=== PATIENT | male | born 1950 | race Caucasian/White ===

== ENCOUNTER → 2023-08-17 09:09 | Outpatient (REF) | payer OTHER, SELFPAY | LOC: PET 09:09 | PROVIDERS: ATTENDING PHYSICIAN Internal Medicine Hematology & Oncology | DX: C61 Malignant neoplasm of prostate (principal) | CPT/HCPCS: 78815 ==

== ENCOUNTER 2023-10-11 17:12 | Emergency (ER) | payer OTHER, SELFPAY ==
[2023-10-11 17:15] VITALS: BP 106/64
[2023-10-11] MEDS: AUGMENTIN 875 MG/125 MG 1 TABLET PO (19:13)
--- NOTE | 2023-10-11 19:34 | ED.SKININJ ---
HPI-Injury
General
Chief Complaint: Bite
Source: patient and spouse
Exam Limitations: none
Time Seen by Provider: 10/11/23 17:50
Nursing documentation reviewed up to this point in time: agreed with
Travel History
Have you had any contact with someone who has COVID-19?: No
Do you have any symptoms of coronavirus? Fever > 100 degrees, chills, cough, shortness of breath, sore throat, loss of taste or smell, muscle aches, or headache?: No
History of Present Illness-Injury
Is this injury a work related problem?: No
Is pt an associate of [facility]?: No
Initial Injury comments:
73-year-old male presenting to the emergency department today with concerns of multiple dog bites to his mainly his left arm and one bite to the right after breaking up a fight with his dog who are up-to-date with vaccinations but otherwise has been
acting normally very low risk for rabies. Does not take blood thinners has some mild pain to the wrist. He is unsure when his last tetanus shot was.
Past History
Past History
ED Past Medical History: Cancer (Prostate CA), COPD, Hypercholesterolemia, [place] and Other (Cardiac arrest, Bladder stent)
ED Past Surgical History: Cardiac (Stents) and Other (Hernia repair)
Social History
Tobacco: Former smoker
Alcohol: None
Drug: None
Personal:
Living: with family
Employment: Not employed
Family History
Family History: Other (Noncontributory)
Review of Systems
Review of Systems
Allergies reviewed?: Yes
All Other Systems: ROS reviewed and negative except as documented in HPI and ROS
Phy Exam
Physical Exam
Physical Exam:
GENERAL: Alert , in no apparent distress
EYE: pupils equal and reactive
NECK: Supple, no significant adenopathy.
ENT: o/p clr, mmm.
CARDIAC: Regular rate and rhythm .
LUNGS: Clear breath sounds bilaterally, no acute respiratory distress, no wheezes/rales/rhonchi
ABDOMEN: Soft, without focal tenderness, no r/g, no cvat
NEUROLOGICAL: Alert and oriented, no focal neuro deficits
SKIN: Warm and dry, skin intact.
MUSCULOSKELETAL: Swelling to the left-sided distal forearm tenderness palpation good range of motion and strength of the elbow and wrist. No edema, well perfused.
PSYCH: Normal and appropriate interaction.
Scattered skin tear and puncture wounds throughout the left upper extremity with no active bleeding small mount of swelling to the distal forearm.
Course
Orders/Labs/Results
Orders:
Orders
10/11/23 18:07
Wrist, Left 3 Views CR [CR Wrist - Left Min 3 Views] Urgent
Comment:
Reason For Exam: dog bite/ swelling
10/11/23 18:47
Amoxicillin 875 mg/Clav 125 mg [Augmentin 875 mg/125 mg] 1 tablet PO NOW STA
10/11/23 19:15
Acetaminophen [Tylenol] 650 mg PO NOW STA
Vital Signs
Initial and Last Documented VS:
Initial Vital Signs
Temp Pulse Resp BP Pulse Ox
98.3 F 81 20 106/64 99
10/11/23 17:15 10/11/23 17:15 10/11/23 17:15 10/11/23 17:15 10/11/23 17:15
Last Documented Vital Signs
Temp Pulse Resp BP Pulse Ox
98.3 F 81 20 106/64 99
10/11/23 17:15 10/11/23 17:15 10/11/23 17:15 10/11/23 17:15 10/11/23 17:15
MDM/Problems Addressed
MDM/Problems Addressed:
73-year-old male presenting to the emergency department today with concerns of bite to the left forearm and skin tear to left forearm occurring just prior to arrival from his dogs after breaking up a fight to his. Does have some pain to the wrist.
X-ray performed that did not show signs of fracture or foreign body. Patient not on thinners. Patient was started on Augmentin. He was advised to get a tetanus shot but refused this. He understands the risk. Otherwise area was cleaned
thoroughly and bandaged but otherwise not closed due to infection risk recommended for close outpatient follow-up return precautions given.
*Critical Care Note
Total Time (30-74mins, 75-104mins- exclusive of procedures): Not Applicable
ED Attending Note
-
Portions of this chart may have been created with voice recognition software.� Occasional wrong word or��sound alike� substitutions may have occurred due to the inherent limitations of voice recognition software.
Discharge Plan
Departure
Patient Disposition: Home (Routine Discharge)
Date of Disposition: 10/11/23
Time of Disposition: 19:35
Patient with high blood pressure during this ER visit?: No
Condition: Good
Covid-19: Not Applicable
Discharge Problem:
Dog bite of arm
Instructions: Animal Bites (DC), Wound Care (DC)
Prescriptions:
New
amoxicillin-pot clavulanate 875-125 mg tablet
1 tab PO BID 5 Days Qty: 10 0RF
No Action
Trelstar 22.5 MG suspension for reconstitution
22.5 mg IM [id number]
Patient Comments:
05/16/2023, patient states that their next dose is on 05/24/2023.
vitamin B complex Tablet
1 tab PO DAILY
Patient Comments:
05/16/2023, patient is unsure whether this is a morning or evening vitamin.
Xtandi 80 mg Tablet
80 mg PO BID
Patient Comments:
05/16/2023, patient is unsure if they are still taking this medication or not. This medication is on [facility] from 03/30/2023.
pantoprazole 40 mg tablet,delayed release (DR/EC)
40 mg PO DAILY Qty: 90 10RF
nitroglycerin 0.4 mg tablet, sublingual
0.4 mg sublingual [id number] PRN (Reason: chest pain) Qty: 25 5RF
mirtazapine 15 mg Tablet
15 mg PO DAILY
Patient Comments:
05/16/2023, patient is unsure whether this is a morning or evening medication.
prednisone 5 mg Tablet
5 mg PO BID
Patient Comments:
05/16/2023, patient is unsure if they are still taking this medication or not. 30-day supply filled on 05/06/2023 according to Pharmacy records.
Xgeva 120 mg/1.7 mL (70 mg/mL) Solution
120 mg SC QMONTH
Calcium 600 + D(3)
1 tab PO BID
atorvastatin 80 mg tablet
80 mg PO DAILY@1900
aspirin [Children's Aspirin] 81 mg Tablet,Chewable
81 mg PO DAILY Qty: 30 0RF
nicotine 14 mg/24 hr Patch 24 Hour
14 mg transdermal DAILY Qty: 28 0RF
Brilinta 90 mg Tablet
90 mg PO BID Qty: 60 0RF
Referrals:
Olivia Zambrano CRNP [Family Provider] -
Activity Restrictions/Additional Instructions:
You can to the emergency department today with concerns of multiple dog bites to your arms. Please keep the area clean covered and take Augmentin twice daily for the next 5 days. Return to the emergency department for any worsening, new or
concerning symptoms.
Interventions
Interventions:
*Risk Screen - Suicide Last Done: 10/11/23 17:15
*General Assessment Last Done: 10/11/23 17:15
*Neglect/Abuse Screening Last Done: 10/11/23 17:15
ED-Skin Assessment Last Done: 10/11/23 18:12
Discharge Date and Time
Print Language: PASHTO
[2023-10-11 19:48] VITALS: BP 98/61
== END 2023-10-11 19:49 | disposition home or self-care (01) ==
LOC: EMR 17:12
PROVIDERS: EMERGENCY PHYSICIAN Emergency Medicine; FAMILY PHYSICIAN Nurse Practitioner Primary Care
DX: S41.132A Puncture wound without foreign body of left upper arm, initial encounter (principal); W54.0XXA Bitten by dog, initial encounter; E78.00 Pure hypercholesterolemia, unspecified; J44.9 Chronic obstructive pulmonary disease, unspecified; Z85.46 Personal history of malignant neoplasm of prostate; Z86.74 Personal history of sudden cardiac arrest; Z87.891 Personal history of nicotine dependence; Z95.5 Presence of coronary angioplasty implant and graft
CPT/HCPCS: 99283; 73110

== ENCOUNTER → 2024-02-07 06:45 | Outpatient (REF) | payer OTHER, SELFPAY | LOC: PAVMRI 06:45 | PROVIDERS: ATTENDING PHYSICIAN Nurse Practitioner Primary Care | DX: F17.209 Nicotine dependence, unspecified, with unspecified nicotine-induced disorders (principal); C61 Malignant neoplasm of prostate; R41.3 Other amnesia | CPT/HCPCS: 70551 ==

== ENCOUNTER → 2024-02-20 11:46 | Outpatient (REF) | payer OTHER, SELFPAY | LOC: PET 11:46 | PROVIDERS: ATTENDING PHYSICIAN Internal Medicine Hematology & Oncology | DX: C61 Malignant neoplasm of prostate (principal) | CPT/HCPCS: 78815 ==

== ENCOUNTER → 2024-05-24 09:51 | Outpatient (REF) | payer OTHER, SELFPAY | LOC: PET 09:51 | PROVIDERS: ATTENDING PHYSICIAN Nurse Practitioner Adult Health | DX: C61 Malignant neoplasm of prostate (principal) | CPT/HCPCS: 78815 ==

== ENCOUNTER → 2024-06-04 11:51 | Outpatient (REF) | payer OTHER, SELFPAY ==
[2024-06-04 11:56] LABS: % Basophils 0.4 % (0-2); % Eosinophils 0.6 % (0-6); % Immature Granulocytes 0.2 % (0-0.5); % Lymphocytes 6.5 % (20.5-51.1); % Neutrophils 83.3 % (42.2-75.2); Absolute Eosinophils 0.1 10^3/uL (0-0.7); Absolute Lymphocytes 0.5 10^3/uL (1.2-3.4); Absolute Monocytes 0.7 10^3/uL (0.1-0.6); Absolute Neutrophils 6.8 10^3/uL (1.4-6.5); Hematocrit 32.7 % (39.0-52.0); Hemoglobin 10.8 g/dL (13.0-18.0); Mean Corpuscular Hgb 36.6 pg (27.0-31.0); Mean Corpuscular Volume 110.8 fL (80.0-94.0); Mean Platelet Volume 9.6 fL (7.4-10.4); Platelet Count 284 10^3/uL (130-400); Red Blood Cell Count 2.95 10^6/uL (4.70-6.10); Red Cell Dist. Width 15.6 % (11.5-14.5); White Blood Cell Count 8.2 10^3/uL (4.8-10.8)
[2024-06-04 12:39] LABS: ALT (SGPT) < 10 U/L (0-50); AST (SGOT) 17 U/L (17-59); Albumin 3.4 g/dl (3.5-5.0); Alkaline Phosphatase 89 U/L (38-126); Blood Urea Nitrogen 25 mg/dl (9-20); Calcium 8.6 mg/dl (8.4-10.2); Carbon Dioxide 25 mmol/L (22-30); Chloride 106 mmol/L (98-107); Glucose 89 mg/dl (70-99); Potassium 5.8 mmol/L (3.5-5.1); Sodium 136 mmol/L (135-145); Total Bilirubin 0.3 mg/dl (0.2-1.3); Total Protein 5.9 g/dl (6.3-8.2); eGFR > 60.00
== END ==
LOC: OIDL 11:51
PROVIDERS: ATTENDING PHYSICIAN Internal Medicine Hematology & Oncology
DX: C77.5 Secondary and unspecified malignant neoplasm of intrapelvic lymph nodes (principal)
CPT/HCPCS: 80053; 85025

== ENCOUNTER → 2024-07-17 16:00 | Outpatient (REF) | payer OTHER, SELFPAY ==
[2024-07-17 14:52] LABS: Blood Urea Nitrogen 18 mg/dl (9-20); Calcium 7.9 mg/dl (8.4-10.2); Carbon Dioxide 22 mmol/L (22-30); Chloride 104 mmol/L (98-107); Glucose 121 mg/dl (70-99); Potassium 4.7 mmol/L (3.5-5.1); Sodium 133 mmol/L (135-145); eGFR > 60.00
== END ==
LOC: OIDL 16:00
PROVIDERS: ATTENDING PHYSICIAN Nurse Practitioner Adult Health
DX: C77.5 Secondary and unspecified malignant neoplasm of intrapelvic lymph nodes (principal)
CPT/HCPCS: 80048

== ENCOUNTER → 2024-07-23 12:08 | Outpatient (REF) | payer OTHER, SELFPAY | LOC: HWRAD 12:08 | PROVIDERS: ATTENDING PHYSICIAN Nurse Practitioner Adult Health; FAMILY PHYSICIAN Internal Medicine Geriatric Medicine | DX: C61 Malignant neoplasm of prostate (principal); C75.5 Malignant neoplasm of aortic body and other paraganglia | CPT/HCPCS: 76770 ==

== ENCOUNTER → 2024-08-20 11:36 | Outpatient (REF) | payer OTHER, SELFPAY | LOC: PET 11:36 | PROVIDERS: ATTENDING PHYSICIAN Nurse Practitioner Adult Health | DX: C61 Malignant neoplasm of prostate (principal) | CPT/HCPCS: 78815 ==

== ENCOUNTER 2024-09-01 14:17 | Inpatient (IN) | payer OTHER, SELFPAY ==
[2024-09-01] VITALS (27 sets, daily range): BP systolic 66–105; BP diastolic 46–78; BMI 20.2; BMI 19.4
[2024-09-01] MEDS: NSS 1000 IV ×3 (09:30→18:49)
[2024-09-01 10:58] LABS: Hematocrit 31.1 % (39.0-52.0); Hemoglobin 10.9 g/dL (13.0-18.0); Mean Corpuscular Hgb 36.6 pg (27.0-31.0); Mean Corpuscular Volume 104.4 fL (80.0-94.0); Mean Platelet Volume 11.1 fL (7.4-10.4); Platelet Count 168 10^3/uL (130-400); Red Blood Cell Count 2.98 10^6/uL (4.70-6.10); Red Cell Dist. Width 15.9 % (11.5-14.5); White Blood Cell Count 21.9 10^3/uL (4.8-10.8)
[2024-09-01 11:01] LABS: ALT (SGPT) 32 U/L (0-50); AST (SGOT) 63 U/L (17-59); Albumin 2.6 g/dl (3.5-5.0); Alkaline Phosphatase 209 U/L (38-126); Blood Urea Nitrogen 61 mg/dl (9-20); Calcium 8.1 mg/dl (8.4-10.2); Carbon Dioxide 22 mmol/L (22-30); Chloride 105 mmol/L (98-107); Estimated Creatinine Clearance 15 ml/min; Glucose 92 mg/dl (70-99); Magnesium 2.2 mg/dl (1.6-2.3); Phosphorus 3.6 mg/dl (2.5-4.5); Sodium 134 mmol/L (135-145); Total Bilirubin 1.1 mg/dl (0.2-1.3); Total Protein 4.7 g/dl (6.3-8.2); eGFR 15.52
[2024-09-01 11:30] LABS: TSH Reflex To Free T4 0.98 uIU/ml (0.47-4.68)
--- NOTE | 2024-09-01 11:46 | ED.GENMED ---
History of Present Illness
General
Chief Complaint: Failure to Thrive
Source: patient
Time Seen by Provider: 09/01/24 08:34
History of Present Illness
History of Present Illness:
73-year-old male presents to the emergency room for evaluation of profound weakness, poor oral intake and perceived dehydration over the past week. Patient has a history of prostate cancer which is now widely metastatic. He has been through
several rounds of radiation and chemo. He took his last chemo treatment 3 weeks ago. He is being considered for a 'infusion of radiation' at [place]. Patient is optimistic that this treatment will help him and wants to do everything he can take
be well enough to get the treatment. Patient denies any fever. He does have a cough. Cough is been present for couple weeks. He has been some lower chest pain and upper abdominal pain. This discomfort has been present for weeks. He denies
nausea or vomiting but just cannot bring himself to consume anything. He is incontinent of urine but has noted he makes very little urine
Past History
Past History
ED Past Medical History: Cancer (Prostate CA), COPD, Hypercholesterolemia, [place] and Other (Cardiac arrest, Bladder stent)
ED Past Surgical History: Cardiac (Stents) and Other (Hernia repair)
Social History
Tobacco: Former smoker
Alcohol: None
Drug: None
Personal:
Living: with family
Employment: Not employed
Family History
Family History: Other (Noncontributory)
Phy Exam
Physical Exam
Physical Exam:
General: Awake, Alert, Oriented X3. Patient appears chronically ill, cachectic, dehydrated
Vitals: Hypotensive
Head: Atraumatic
Eyes: Pupils equal, EOMI
Throat: Airway intact, no exudates, dry mucosa
Neck: Trachea midline
Lungs: Clear and equal b/l
Heart: Regular rate, 3/6 systolic murmurs
Abd: Soft, upper abdominal pain to palpation, No pulsatile mass
Back: No CVA tenderness to percussion
Neuro: Cranial nerves intact, muscle strength equal bilaterally, cerebellar exam normal
Skin: Warm, dry, no rash
Extremities: pulses equal b/l, no edema
Course
Orders/Labs/Results
Orders:
Orders
09/01/24 09:01
0.9% Sodium Chloride 1000 ml [Nss] 1,000 ml IV BOLUS
09/01/24 09:05
Urinalysis Reflex To Culture Urgent
09/01/24 09:23
CR Chest - 2 Views Urgent
Comment:
Reason For Exam: cough
09/01/24 10:33
Complete Blood Count/With Diff Urgent
Comprehensive Metabolic Panel Urgent
Magnesium Urgent
Phos [Phosphorus] Urgent
TSH Reflex To Free T4 Urgent
09/01/24 11:16
Electrocardiogram (*1) Urgent
Reason for Study: QTc Monitoring
CT Abd/pel Without Iv Or Oral Urgent
Comment:
Reason For Exam: acute renal failure
EKG- Treatment ONCE
Calcium Gluconate 1,000 mg IV NOW STA
Dextrose 50%-Water [Dextrose 50% Syringe] 12.5 grams IV [id number] PRN
Dextrose 50%-Water [Dextrose 50% Syringe] 25 grams IV NOW STA
Insulin Human Regular [Novolin R] 10 units IV NOW STA
09/01/24 11:17
Bedside Glucose PRE IV Insulin- HyperK+ NOW
09/01/24 11:47
CefTRIAXone [Rocephin] 1,000 mg IV NOW STA
Doxycycline [Vibramycin] 100 mg PO NOW STA
09/01/24 12:47
Bedside Glucose POST IV Insulin- HyperK+ Q1HX2,Q2HX2
09/01/24 13:22
0.9% Sodium Chloride 1000 ml [Nss] 1,000 ml IV BOLUS
09/01/24 13:32
Blood Culture Routine
DENISE Source: Blood/Venous
Specimen Description:
09/01/24 13:34
Admit/Transfer Patient As Directed
Co-Sign Provider:
Level of Care: Inpatient admission
Assign to:: IMU- Intermediate Care
Physician / Group: Raulito/Hospitalist
Diagnosis: RADHA, kidney stone, metastatic prostate ca, b/l pneumonia
Reason for Hospitalization: 8 mm nonobstructing lower pole left renal calculus.
Expected length of stay greater than two midnights?: Yes
ELOS- Estimated Length of Stay in days: 4
I certify the patient meets the requirements for IP care: Yes
09/01/24 13:35
PRN Pain Medication Management As Directed
May give lesser potent ordered pain med per pt: Yes
preference::
Protocol:: Medication orders for pain may be administered in a
manner that supports deferring to patient preference
when the pt is:
- Requesting an ordered lesser potent pain medication.
Least to most potent pain medications are defined
as: acetaminophen < NSAID < tramadol < opioids
(morphine, oxycodone, hydromorphone).
- Requesting a lesser dose of the same medication IF
ORDERED.
- Requesting a less intrusive route of administration
if both routes are prescribed by the provider (PO <
IV).
09/01/24 13:36
Code Status As Directed
Resuscitation Status: Full Code
09/01/24 13:42
0.9% Sodium Chloride 250 ml [Nss] 250 ml IV BOLUS
09/01/24 13:47
Potassium Urgent
Comment: draw 2 hours after regular insulin IV administration
09/01/24 14:08
Consult Interventional Radiology [IRAD CONSULT] Urgent
Consulting Provider: Marvin Bull
Was physician already notified: Yes
Reason for Consult/Procedure: kidney stones, hydro left, RADHA, met ca prostate
Acknowledgement that appropriate orders are entered: Yes
Abnormal Lab Results
09/01/24
10:33
WBC 21.9 H 10^3/uL
(4.8-10.8)
RBC 2.98 L 10^6/uL
(4.70-6.10)
Hgb 10.9 L g/dL
(13.0-18.0)
Hct 31.1 L %
(39.0-52.0)
MCV 104.4 H fL
(80.0-94.0)
MCH 36.6 H pg
(27.0-31.0)
RDW 15.9 H %
(11.5-14.5)
MPV 11.1 H fL
(7.4-10.4)
Abs Immat Gran (auto) 0.2 H 10^3/uL
(0-0.05)
Absolute Neuts (auto) 20.5 H 10^3/uL
(1.4-6.5)
Absolute Lymphs (auto) 0.5 L 10^3/uL
(1.2-3.4)
Absolute Monos (auto) 0.7 H 10^3/uL
(0.1-0.6)
Immature Gran % 0.7 H %
(0-0.5)
Neutrophils % 93.8 H %
(42.2-75.2)
Lymphocytes % 2.1 L %
(20.5-51.1)
Sodium 134 L mmol/L
(135-145)
Potassium 6.0 H mmol/L
(3.5-5.1)
BUN 61 H mg/dl
(9-20)
Creatinine 3.9 H mg/dL
(0.7-1.3)
Calcium 8.1 L mg/dl
(8.4-10.2)
AST 63 H U/L
(17-59)
Alkaline Phosphatase 209 H U/L
(38-126)
Total Protein 4.7 L g/dl
(6.3-8.2)
Albumin 2.6 L g/dl
(3.5-5.0)
09/01/24 10:33
Vital Signs
Initial and Last Documented VS:
Initial Vital Signs
Temp Pulse Resp BP Pulse Ox
97.5 F 99 18 79/53 100
09/01/24 08:25 09/01/24 08:25 09/01/24 08:25 09/01/24 08:25 09/01/24 08:25
Last Documented Vital Signs
Temp Pulse Resp BP Pulse Ox
97.5 F 75 24 83/50 96
09/01/24 08:25 09/01/24 15:15 09/01/24 15:15 09/01/24 15:00 09/01/24 15:15
MDM/Problems Addressed
Differential Diagnosis Includes:
Dehydration, renal failure, electrolyte abnormality, urinary tract infection
MDM/Problems Addressed:
Patient presents with significant dehydration, weakness. Labs show a white count of 21.9, hemoglobin of 10.9. His BUN and creatinine are markedly elevated at 61 and 3.9. His potassium is significantly elevated at 6.0. EKG does not show any
findings to suggest effect from potassium. However he was treated with calcium gluconate, dextrose and insulin. IV fluids were initiated. Chest x-ray suggestive of pneumonia bilaterally. Given his renal failure a CT was obtained which shows an
atrophic right kidney and hydronephrosis of the left thought to be related to an accumulation of kidney stones at the distal left ureter. Urology consultation was obtained. Dr. Chambers came and saw the patient. He recommends interventional
radiology perform a nephrostomy tube. He did reach out to interventional) allergy. The patient will require hospitalization to a monitored setting.
*Radiology
Radiology exam reviewed: radiology read reviewed
*Pulse Oximetry
Patient hypoxic: no
*EKG
Heart Rate: 73
Rate: normal
Rhythm: sinus
[place]: normal axis
Interval: normal interval
QRS Pattern: low voltage
Ischemia: no ischemia
*Coder Interpretation
Rate: normal
Interpretation: normal
Rhythm: sinus
*Critical Care Note
Total Time (30-74mins, 75-104mins- exclusive of procedures): 33 min
comment:
Critical care statement: A total of 33 minutes of critical care time was provided for this patient. This includes management of unstable vital signs, evaluation of the patient at bedside, reviewing the patient's pertinent medical records, discussion
with consultants, review of old EKGs and review of pertinent medical records. This time with separate from time utilized to perform the aforementioned documented procedures
Patient Management
Social determinants of health affecting care: Strong social support
ED Attending Note
-
Portions of this chart may have been created with voice recognition software.� Occasional wrong word or��sound alike� substitutions may have occurred due to the inherent limitations of voice recognition software.
Discharge Plan
Departure
Patient Disposition: Admit
Date of Disposition: 09/01/24
Time of Disposition: 11:57
Admit to: IMU
Presentation/result/management discussed w/ accepting MD/DO: Hospitalist
Condition: Fair
Discharge Problem:
Acute dehydration, Acute hyperkalemia, Pneumonia
Interventions
Interventions:
*Risk Screen - Suicide Last Done: 09/01/24 08:25
*Neglect/Abuse Screening Last Done: 09/01/24 08:25
[2024-09-01 12:13] LABS: % Basophils 0.2 % (0-2); % Eosinophils 0.1 % (0-6); % Immature Granulocytes 0.7 % (0-0.5); % Lymphocytes 2.1 % (20.5-51.1); % Monocytes 3.1 % (1.7-9.3); % Neutrophils 93.8 % (42.2-75.2); Absolute Basophils 0.1 10^3/uL (0-0.2); Absolute Immature Granulocytes 0.2 10^3/uL (0-0.05); Absolute Lymphocytes 0.5 10^3/uL (1.2-3.4); Absolute Monocytes 0.7 10^3/uL (0.1-0.6); Absolute Neutrophils 20.5 10^3/uL (1.4-6.5); Nucleated Red Blood Cells % 0 % (-)
--- NOTE | 2024-09-01 12:30 | HPS.HSE ---
Addendum entered and electronically signed by Mariaelena Cabezas DO 09/01/24 14:30:
Dr. Chambers from urology came to see the patient.
Due to the extent of the kidney stones and location and also complications of taking him to the OR under sedation based on his comorbidities, interventional radiology was also consulted for possible percutaneous stenting.
Interventional radiology will see the patient in the emergency department with a plan to keep the patient n.p.o., judicious use of IV fluids, and likely intervention today or tomorrow.
In addition to the assessment
# Hyperkalemia, likely due to acute kidney injury.
- He received insulin, calcium gluconate and dextrose in the emergency department.
-EKG is showing no changes at this time.
-Will follow-up with a repeat BMP this evening.
-Monitor on telemetry.
Original Note:
Family Physician
-
Family Physician: Fei Braga
Chief Complaint
-
FTT
History of Present Illness
The patient is a 73-year-old male with past medical history significant for prostate carcinoma status post prostatectomy in March 2019, PSA on 06/21/2024 reportedly 240 ng/mL, PSA on 07/12/2024 reportedly 462 ng/mL, family reported PSA is now over
1000, with disease progression in the bones and liver, COPD, hyperlipidemia, coronary artery disease, OH, cardiac arrest, bladder stent who presented to the emergency department secondary to failure to thrive. He has not been eating or drinking
much, he has been very dehydrated, he has had increased fatigue and weakness. He denies chest pain or shortness of breath but he has been coughing a lot. Cough is nonproductive. He has right upper quadrant abdominal pain. He has had very little
urine output if any. He has been on 4 L of oxygen therapy in the emergency department for comfort. WBC 21.9 hemoglobin 10.9 platelets 168 creatinine 3.9 which is up from a creatinine of 1.2 in July 17 2024. Recent PET scan August 20, 2024
shows progressive disease with uptake in multiple prior existing osseous lesions that has increased and a few new lesions demonstrated with progressive hepatic metastatic disease.
ED treatment
IV fluid bolus, IV calcium gluconate, 10 units insulin, dextrose, IV Rocephin, IV doxycycline
Medical History
Past Medical History
Past Medical History: Reports Other
Additional Past Medical History:
Coronary Artery Disease s/p TANYA (most recent August 2022)
Ischemic Cardiomyopathy
Non-Sustained VT
Essential Hypertension
Hyperlipidemia
CKD Stage 3B
COPD
Interstitial Lung Disease
Metastatic Prostate Cancer s/p Prostatectomy and Radiation
Depression
Past Surgical History: Reports Other
Additional Past Surgical History:
Cardiac Stents
Prostatectomy
Hernia Repair
Carpal Tunnel Release
Social History
Tobacco: Smoker (1 ppd)
Personal:
Family History
Family History: CAD
Allergies / Home Medications
Allergies reflects when Allergies were last updated in [facility].
Home Medications with original date entered in [facility]
Allergy/Medication List:
Allergies
Allergy/AdvReac Type Severity Reaction Status Date / Time
adhesive tape [Adhesive Tape] Allergy Has not Verified 10/11/23 17:18
happened
since 2013
Home Medications
triptorelin pamoate 22.5 mg IM suspension (Trelstar) 22.5 mg IM [id number] Gonadotropin Releasing Hormone Agonist 12/26/20
enzalutamide 80 mg tablet (Xtandi) 80 mg PO BID Cancer 07/12/22
vitamin B complex 1 tab PO DAILY Supplement 07/12/22
nitroglycerin 0.4 mg sublingual tablet 0.4 mg sublingual [id number] PRN chest pain #25 tabs 09/01/22
pantoprazole 40 mg tablet,delayed release 40 mg PO DAILY #90 tabs 09/01/22
Calcium 600 + D(3) 1 tab PO BID Supplement 05/16/23
atorvastatin 80 mg tablet 80 mg PO DAILY@1900 High Cholesterol 05/16/23
denosumab 120 mg/1.7 mL (70 mg/mL) subcutaneous solution (Xgeva) 120 mg SC QMONTH Autoimmune Disorder 05/16/23
mirtazapine 15 mg tablet 15 mg PO DAILY Mental Health/Anxiety 05/16/23
prednisone 5 mg tablet 5 mg PO BID INFLAMMATION 05/16/23
aspirin 81 mg chewable tablet (Children's Aspirin) 81 mg PO DAILY #30 tabs 05/18/23
nicotine 14 mg/24 hr daily transdermal patch 14 mg transdermal DAILY #28 ea 05/18/23
ticagrelor 90 mg tablet (Brilinta) 90 mg PO BID #60 tabs 05/18/23
amoxicillin 875 mg-potassium clavulanate 125 mg tablet 1 tab PO BID 5 days #10 tabs 10/11/23
Review of Systems
-
A 12 point ROS was completed and negative except as noted: Yes
Physical Exam
Vital Signs
Vital Signs
Temp Pulse Resp BP Pulse Ox
97.5 F 75 27 85/60 98
09/01/24 08:25 09/01/24 09:45 09/01/24 09:45 09/01/24 09:00 09/01/24 09:45
Physical Exam
General: Appears Chronically Ill and Cachectic
HEENT: Other (dry mucous membranes)
Respiratory: Rales
Cardiac: S1/S2 and Regular Rhythm
GI: Soft and Other (RUQ enlarged liver palpable and tender)
Musculoskeletal: No Clubbing, No Cyanosis and No Edema
Neuro: AO x 3 and No Motor Deficits
Psych: Calm
Laboratory Results
-
09/01/24 10:33
Laboratory Results
Total Bilirubin 1.1 mg/dl (0.2-1.3) 09/01/24 10:33
AST 63 U/L (17-59) H 09/01/24 10:33
ALT 32 U/L (0-50) 09/01/24 10:33
Alkaline Phosphatase 209 U/L (38-126) H 09/01/24 10:33
Data Reviewed
-
Diagnostic Radiology: Image Personally Visualized and interpreted, Report Reviewed by me (Chest x-ray with moderate mount of groundglass airspace opacity in the peripheral right midlung and both lower lobes. Possible bilateral pneumonia or an
inflammatory pneumonitis, . EXTENSIVE MULTIFOCAL BLASTIC OSSEOUS METASTATIC DISEASE.), Discussed with Physician, Discussed with Nurse, Discussed with Patient and Discussed with Family
CT Scan: Image Personally Visualized and interpreted, Report Reviewed by me, Discussed with Physician, Discussed with Nurse, Discussed with Patient and Discussed with Family
Lab Data: Labs Reviewed by me, Discussed with Physician, Discussed with Nurse, Discussed with Patient and Discussed with Family
Impression/Plan
-
IMPRESSION:
Findings on CT a/p w/o contrast due to renal failure:
Visualized portion of the lung bases demonstrate small bilateral pleural effusions. Mild patchy atelectasis and/or pneumonia within the right middle lobe and dependent bilateral lower lobes and lingula.
redemonstrated. Severe right renal atrophy redemonstrated.
Extensive adjacent urinary calculi within the distal left ureter extending over the distal approximately 4.5 cm of the left ureter extending to the left ureterovesical junction, with associated moderate left hydroureteronephrosis, new from 08/20/2024.
8 mm nonobstructing lower pole left renal calculus. The spleen, kidneys, adrenal glands and pancreas are unremarkable. Gallbladder present.
Small amount of free fluid in the pelvis, likely reactive. No enlarged lymph nodes or free air.
Diverticulosis coli without evidence for diverticulitis. The bowel is without evidence of obstruction or adjacent inflammatory changes. Normal appendix.
Bladder decompressed and not well evaluated, likely demonstrating diffuse wall thickening.
#Metastatic Prostate Cancer s/p Prostatectomy and Radiation
-the patient's oncologist is Dr. Braga at [facility] , chemotherapy up until 3 weeks ago , with new plans for liquid radiation that he was supposed to have on Tuesday
#Bilateral pneumonia or an inflammatory pneumonitis
�Continue oxygen per nasal cannula for comfort
�Continue IV antibiotics
-Sputum cultures
-Legionella urinary antigen
-Blood cultures, urine cultures
#Acute renal failure likely secondary to multifactorial due to severe dehydration with volume depletion along with extensive adjacent urinary calculi within the distal left ureter extending over the distal approximately 4.5 cm of the left ureter
extending to the left ureterovesical junction, with associated moderate left hydroureteronephrosis, new from 08/20/2024.
-8 mm nonobstructing lower pole left renal calculus.
-Urology has been consulted they are coming to see the patient in the emergency department. The plan will be for him to stay n.p.o.
-Closely monitor IV fluids
-Bladder scan the patient
-
#Extensive metastatic disease-Grossly stable extensive osteoblastic metastases within the appendicular and axial skeleton. Partially healed pathologic fracture involving the lateral right eighth rib. Bilateral L5 pars defects with associated grade 1
anterolisthesis of L5 on S1, hepatic metastases
# Severe right renal atrophy
#Right IJ chemotherapy Mediport in place.
#EXTENSIVE MULTIFOCAL BLASTIC OSSEOUS METASTATIC DISEASE
-multifocal blastic osseous metastatic disease throughout the spine, scapula, ribs, sternum, and proximal humeri.
#Incidental finding on CT: Fusiform aneurysmal dilatation of the infrarenal abdominal aorta measuring up to 4.0 cm.
#Coronary Artery Disease s/p TANYA (most recent August 2022)
#Ischemic Cardiomyopathy
#Non-Sustained VT
#Essential Hypertension
-Patient currently hypotensive and getting IV fluids
#Hyperlipidemia
#CKD Stage 3B
#COPD
#Interstitial Lung Disease
#Depression/anxiety
-continue benzo txt
DVT proph-PCDs
Pt is Full Code
After lengthy discussion with the patient and the family, the patient and family are aware of the critical condition the patient is in from his metastatic cancer along with his acute medical issues, and the patient wishes to continue with full code
and full medical treatment at this time with the intention of getting a round of liquid radiation with his oncologist at [facility].
[2024-09-01 13:04] LABS: Glucose - Point of Care 90 mg/dl (70-99)
[2024-09-01] MEDS: ROCEPHIN 1000 MG IV (13:04)
[2024-09-01] MEDS: DEXTROSE 50% SYRINGE 25 GRAMS IV (13:05)
[2024-09-01] MEDS: CALCIUM GLUCONATE 1000 MG IV (13:05)
[2024-09-01] MEDS: NOVOLIN R 10 UNITS IV (13:06)
[2024-09-01] MEDS: VIBRAMYCIN 100 MG PO (13:22)
--- NOTE | 2024-09-01 14:26 | W.PN.URO.CBU ---
Today's Communication / Plan
-
[facility] for perc tube
Assessment / Plan
-
new lefgt obstructive uropathyin chronically ill male wih mets fronm acp New left hydro with akui due to 4.5 cm of stones distal ureter I do not believ pt can udergo a procedure that may be difficult at best with crat 3.p and potasuoium 6
without high hopes of navibauing a radiated uretr with 4.5 cm of stones that has neen oirradiated Clementina now recomend orad to place prc tube and if pt stable at some point try to remove stones . pluvicto on hold for now
Diagnosis
-
Date of Service: September 01, 2024
-
Patient Diagnosis:metastaic acp with new onset left hydro due to dirstal stones left uretr and atrohic rt kidney Pt s/p rpp and xrt and chemo , but progressive osseos ansd liver mets no obvious tierra disease Now hydro vomiting creatinine 1.4
to 3.9 and potassium 6.0
Post Op Day:
Subjective
-
feels porly does not want hospice
Objective
-
Vital Signs
Temp Pulse Resp BP Pulse Ox
97.5 F 75 27 85/60 98
09/01/24 08:25 09/01/24 09:45 09/01/24 09:45 09/01/24 09:00 09/01/24 09:45
Laboratory Results
09/01/24 10:33
Review of Systems
-
Constitutional: Fatigue
: Flank Pain, Incontinence and Difficulty Voiding
Physical Exam
-
General - cachectic ill
Chest - clear bilaterally
Abdomen - soft, non-tender, positive bowel sounds, no CVAT, no incisional pain or distention
Genitalia - normal
Rectno prostae
Skin - warm & dry with no rash
Neuro - AOx3, no motor deficits
Extremities - no clubbing, no cyanosis, no edema
Incision - clean, dry
Dressing - clean, dry, intact
Care Review
Data Reviewed
Discussed with: Hospitalist, Nursing, [facility] and Family
CT Scan: Image Pers Reviewed
[2024-09-01 15:46] LABS: Glucose - Point of Care 74 mg/dl (70-99)
[2024-09-01 16:06] LABS: INR 1.19; PT 15.4 Sec (11.4-14.6)
[2024-09-01 18:36] LABS: Glucose - Point of Care 72 mg/dl (70-99)
--- NOTE | 2024-09-01 18:36 | PTCARENOTE ---
Patient arrived on admission from [facility] via stretcher at approximately 1815; cannot verify accuracy of vital signs prior to this time.
[2024-09-01] MEDS: DELTASONE 5 MG PO (20:15)
[2024-09-01 20:16] LABS: Urine Albumin 3+ (Neg - Trace); Urine Bilirubin Negative (Negative); Urine Character Slightly Cloudy (Clear); Urine Color Amber; Urine Glucose Negative (Negative); Urine Ketone Negative (Negative); Urine Leukocyte 2+ (Negative); Urine Nitrite Negative (Negative); Urine Occult Blood 4+ (Negative); Urine Urobilinogen Negative (Neg - 1+)
[2024-09-01 20:24] LABS: Urine Squamous Cell 0-2 /LPF (Few); Urine Uric Acid Crystals Present
[2024-09-01 20:25] LABS: Urine Bacteria Few (Negative); Urine Red Blood Cell 50-60 /HPF (0-2); Urine White Cell 60-70 /HPF (0-5)
[2024-09-01 20:32] LABS: INR 1.23; PT 15.7 Sec (11.4-14.6)
[2024-09-01 20:35] LABS: Blood Urea Nitrogen 60 mg/dl (9-20); Calcium 7.5 mg/dl (8.4-10.2); Carbon Dioxide 20 mmol/L (22-30); Chloride 111 mmol/L (98-107); Estimated Creatinine Clearance 16 ml/min; Glucose 83 mg/dl (70-99); Potassium 4.8 mmol/L (3.5-5.1); Sodium 135 mmol/L (135-145); eGFR 17.67
[2024-09-01] MEDS: VIBRAMYCIN 260 MG IV (21:21)
[2024-09-01 21:47] LABS: Glucose - Point of Care 107 mg/dl (70-99)
[2024-09-02] VITALS (13 sets, daily range): BP systolic 90–113; BP diastolic 59–75
--- NOTE | 2024-09-02 02:14 | PTCARENOTE ---
Pt had major diarrheal episode. Received completed bed bath and CHG wipes. Once finished cleansing and changing pt, pt had n/v and coughing up a lot of mucous. Respiratory sample sent to lab just prior to n/v. Hephzeba TT'd and Angelina ordered.
Waiting for pharmacy verification. At present pt resting more comfortable. Sacal and B/L heel foams changed out at this time. Call remains within reach. Will continue to monitor.
[2024-09-02] MEDS: ZOFRAN 4 MG IV (02:20)
[2024-09-02] MEDS: NSS 1000 IV (02:21)
[2024-09-02 04:32] LABS: % Basophils 0.2 % (0-2); % Eosinophils 0.3 % (0-6); % Immature Granulocytes 0.6 % (0-0.5); % Lymphocytes 3.3 % (20.5-51.1); % Monocytes 4.9 % (1.7-9.3); % Neutrophils 90.7 % (42.2-75.2); Absolute Immature Granulocytes 0.1 10^3/uL (0-0.05); Absolute Lymphocytes 0.4 10^3/uL (1.2-3.4); Absolute Monocytes 0.6 10^3/uL (0.1-0.6); Absolute Neutrophils 10.3 10^3/uL (1.4-6.5); Hematocrit 27.6 % (39.0-52.0); Hemoglobin 9.6 g/dL (13.0-18.0); Mean Corp Hgb Conc. 34.8 g/dL (33.0-37.0); Mean Corpuscular Hgb 36.9 pg (27.0-31.0); Mean Corpuscular Volume 106.2 fL (80.0-94.0); Mean Platelet Volume 11.6 fL (7.4-10.4); Nucleated Red Blood Cells % 0 % (-); Platelet Count 159 10^3/uL (130-400); Red Cell Dist. Width 15.9 % (11.5-14.5); White Blood Cell Count 11.3 10^3/uL (4.8-10.8)
[2024-09-02 05:09] LABS: ALT (SGPT) 27 U/L (0-50); AST (SGOT) 53 U/L (17-59); Albumin 2.1 g/dl (3.5-5.0); Alkaline Phosphatase 186 U/L (38-126); Blood Urea Nitrogen 61 mg/dl (9-20); Calcium 7.2 mg/dl (8.4-10.2); Carbon Dioxide 17 mmol/L (22-30); Chloride 112 mmol/L (98-107); Estimated Creatinine Clearance 16 ml/min; Glucose 69 mg/dl (70-99); Sodium 137 mmol/L (135-145); Total Bilirubin 0.5 mg/dl (0.2-1.3); Total Protein 4.3 g/dl (6.3-8.2)
[2024-09-02] MEDS: SOLU-CORTEF 200 MG IV (07:45)
[2024-09-02] MEDS: D5/0.9% SODIUM CHLORIDE 1000 IV ×2 (07:45→21:39)
[2024-09-02] MEDS: B COMPLEX w/VITAMIN C 1 CAPLET PO (07:45)
--- NOTE | 2024-09-02 08:46 | W.PN.HOSP.TC ---
Addendum entered and electronically signed by Andrés Blankenship MD 09/02/24 12:37:
noted mass on R kidney also - to follow with Urology/Onc
Original Note:
Today's Communication/Plan
-
see PN
Assessment / Plan
Assessment / Plan
73yo M with metastatic prostate CA, COPD, HLD, CAD s/p AL came with worsening weakness and poor oral intake for past 3 weeks. Last chemo 3 weeks ago and PET showing significant disease progression. Found RADHA, UTI with L obstructing nephrolithiasis
s/p perc nephrostomy on the L on 09/01/24. Patient denies problem swallowing, describing lack of appetite as he cannot push anything to eat. Also concern for pneumonia on XR
A/P:
#RADHA on UTI with dehydration and L obstructing nephrolithiasis
#R renal aatrophy
Abx
Bcx NTD
Follow Ucx
Urology consult: nephrostomy and possible eventual lithotripsy
IDAD: s/p nephrostomy on 09/01/24
IVF
Cr slowly improving - cont to follow BMP
Hold NSAIDs and ACEi
#hyperkalemia
2/2 RADHA
resolved
#B/L lower lobe pneumonia
Add doxy
respiratory culture pending
Legionella neg
check S.pneumonia urinary Ag
COVID-19 and Influenza PCR
#RUQ abdominal pain with extensive hepatic metastatic disease
#Elevated alk.phos - most likely 2/2 extensive bone metastasis
Follow LFT
US RUQ
ZOsyn
#AAA
4.0cm
outpatient follow up
#Prostate CA with extensive hepatic and oseous metastasis
#Protein calorie malnutrition
s/p chemo 3 weeks ago with resultant poor functional capacity and decline, suspect reaction to chemo
Onc consult
Increase steroids to stress dose to attempt to improve functioning and appetite
#Anxiety
#CAD stable
#Iscemic CM
#HLD
#COPD not in exacerbation
#ILD
cont home meds
DVT ppx hep
full code
I have spent at least 59min reviewing chart, test results, communication with consultants and providing direct patient care
Anticipated Discharge: > 48 hours
Subjective/Interval History
-
Date of Service: September 02, 2024
Objective Data
-
Labs:
Laboratory Results
09/02/24
03:46
WBC 11.3 H
Hgb 9.6 L
Hct 27.6 L
Plt Count 159
Sodium 137
Potassium 5.0
Chloride 112 H
Carbon Dioxide 17 L
BUN 61 H
Creatinine 3.4 H
Glucose 69 L
Calcium 7.2 L
Total Bilirubin 0.5
AST 53
ALT 27
Alkaline Phosphatase 186 H
Vital Signs:
Vital Signs
Temp Pulse Resp BP Pulse Ox
97.4 F 71 14 92/63 92
09/02/24 07:10 09/02/24 06:00 09/02/24 06:00 09/02/24 06:00 09/02/24 08:04
I&O
09/01/24 09/02/24 09/03/24
06:59 06:59 06:59
Intake Total 300 / 300
Output Total 350 / 350
Balance -50 / -50
Review of Systems
-
History Source: Patient
Constitutional: Reports No Appetite
Abdomen/GI: Reports Abdominal Pain (RUQ)
Physical Exam
-
General: Appears in Distress; Negative Well Nourished
HEENT: Moist Mucous Membranes
Respiratory: Clear to Auscultation
Cardiac: Regular Rhythm
GI: Soft, Nondistended and Tender (RUQ)
Genito-urinary: Nephrostomy Tubes (L)
Musculoskeletal: No Clubbing, No Cyanosis and No Edema
Neuro: Awake, Alert, Oriented and AO x 3
Psych: Calm
[2024-09-02 09:28] LABS: COVID-19 Antigen Negative (Negative)
[2024-09-02] MEDS: VIBRAMYCIN 260 MG IV ×2 (10:59→22:39)
--- NOTE | 2024-09-02 11:19 | W.PN.URO.CBU ---
Today's Communication / Plan
-
no new changes
Assessment / Plan
-
new left obstructive uropathy in chronically ill male with mets from acp New left hydro with emile due to 4.5 cm of stones distal ureter Left perc tube placed [ rt kidney atrophic ] draining but creatinine still elevated. At this time I spoke
with pt, family and IR[facility] Next step is to try and internalize the perc to if able to nephroureteral stent as to obviate need for drainage bag in this desperately ill man. if fails then difficult decision as to whether it is appropriate to try
and remove stones. also pt scheduled wed for pluvict
Diagnosis
-
Date of Service: September 02, 2024
-
Patient Diagnosis:
Post Op Day:
Patient Diagnosis:metastatic acp with new onset left hydro due to distal stones left ureter and atrophic rt kidney Pt s/p rpp and xrt and chemo , but progressive osseous and liver mets no obvious tierra disease Now hydro vomiting creatinine
1.4 to 3.9 and potassium 6.0
Post Op Day: 1 s/p left perc tube at [facility]
Subjective
-
rt uq abdominal; pain no left colic
Objective
-
Vital Signs
Temp Pulse Resp BP Pulse Ox
97.4 F 71 16 91/63 92
09/02/24 07:10 09/02/24 09:00 09/02/24 09:00 09/02/24 08:00 09/02/24 08:04
Intake and Output
09/01/24 09/02/24 09/03/24
06:59 06:59 06:59
Intake Total 300 / 300
Output Total 350 / 350
Balance -50 / -50
Intake:
Oral fluids 300 / 300
Output:
Urinary Drain Output (Total) 350 / 350
Left Nephrostomy 350 / 350
Other:
Number of unmeasured liquid
stools
Rectum 3
Laboratory Results
09/02/24 03:46
09/02/24 03:46
Review of Systems
-
Abdomen/GI: Abdominal Pain
: Urgency
Physical Exam
-
General - well developed, well nourished, no acute distress
Chest - clear bilaterally
Abdomen - soft, non-tender, positive bowel sounds, no CVAT, no incisional pain or distention left perc tube draining
Genitalia - normal
Rectal - normal
Skin - warm & dry with no rash
Neuro - AOx3, no motor deficits
Extremities - no clubbing, no cyanosis, no edema
Incision - clean, dry
Dressing - clean, dry, intact
Counseling
-
no gu changes
Care Review
Data Reviewed
Discussed with: Internal Medicine, Nursing, IR[facility] and Family
CT Scan: Image Pers Reviewed
--- NOTE | 2024-09-02 11:55 | CON.ONC ---
Impression
Impression
Left hydro secondary to renal lithiasis now with percutaneous cath
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
Liver and bony metastases
Urinary tract infection
Bilateral basilar pneumonia
COPD
Plan
Plan
Repeat chest x-ray
Anticipate TJU for Pluvicto if performance status permits
Continue antibiotics per primary team
Consider internalization of stent with IR in the future
Patient History
History of Present Illness
The patient is a 73-year-old male with past medical history significant for prostate carcinoma status post prostatectomy in March 2019, disease progression in the bones and liver, COPD, hyperlipidemia, coronary artery disease, CO, cardiac arrest,
bladder stent who presented to the emergency department secondary to failure to thrive. He has recently progressed on systemic chemotherapy with Jevtana for castrate resistant prostate carcinoma after having failed multiple lines of therapy. Plans
for Pluvicto made for Tuesday. His performance status is declining although he feels better with antibiotics and hydration. He has had increased fatigue and weakness. He denies chest pain or shortness of breath but he has been coughing a lot.
Cough is nonproductive. He has right upper quadrant abdominal pain.
Past-Medical/Surgical History
Past medical history
Coronary Artery Disease s/p TANYA (most recent August 2022)
Ischemic Cardiomyopathy
Non-Sustained VT
Essential Hypertension
Hyperlipidemia
CKD Stage 3B
COPD
Interstitial Lung Disease
Metastatic Prostate Cancer s/p Prostatectomy and Radiation
Depression
Past Surgical History:
Cardiac Stents
Prostatectomy
Hernia Repair
Carpal Tunnel Release
Patient Medication
�Medication �Instructions �Recorded �Confirmed �Last Taken �Type
triptorelin pamoate 22.5 mg IM 22.5 mg IM [id number] Cancer 12/26/20 09/01/24 08/07/24 History
suspension (Trelstar)
enzalutamide 80 mg tablet (Xtandi) 80 mg PO BID Cancer 07/12/22 09/01/24 08/29/24 History
denosumab 120 mg/1.7 mL (70 mg/mL) 120 mg SC QMONT [facility] 05/16/23 09/01/24 08/07/24 History
subcutaneous solution (Xgeva)
prednisone 5 mg tablet 5 mg PO BID Anti-Inflammatory 05/16/23 09/01/24 08/29/24 History
aspirin 81 mg tablet,delayed 81 mg PO DAILY Blood Clot 09/01/24 09/01/24 08/29/24 History
release Prevention/Tx
calcium 600 mg (as 1 tab PO BID Supplement 09/01/24 09/01/24 08/29/24 History
carbonate)-vitamin D3 5 mcg (200
unit) tablet
citalopram 10 mg tablet 10 mg PO DAILY Mental 09/01/24 09/01/24 08/29/24 History
Health/Anxiety
lorazepam 0.5 mg tablet 0.5 mg PO BID PRN anxiety 09/01/24 09/01/24 08/29/24 History
vitamin B complex 1 tab PO DAILY Supplement 09/01/24 09/01/24 08/29/24 History
Active Medications
Generic Name Dose Route Start Last Admin
Trade Name Freq PRN Reason Stop Dose Admin
Citalopram Hydrobromide 10 mg 09/02/24 18:00
Citalopram 10 Mg Tablet PO 09/30/24 17:59
QPM JEROD
Dextrose 12.5 grams 09/01/24 11:16
Dextrose 50% (0.5 Grams/Ml) 50 Ml Syringe IV 09/29/24 11:15
[id number] PRN
hypoglycemia (BG < 70 mg/dL)
Protocol
Heparin Sodium 5,000 units 09/02/24 16:00
Heparin 5,000 Units/Ml 1 Ml Vial SC 09/30/24 15:59
Q8 JEROD
Hydrocortisone Sodium Succinate 50 mg 09/02/24 16:00
Hydrocortisone Sodium Succinate 100 Mg/2 Ml Vial IV 09/30/24 15:59
Q8 JEROD
Doxycycline Hyclate 100 mg/ 260 mls @ 260 mls/hr 09/01/24 22:00 09/02/24 10:59
Sodium Chloride IV 260 mls
Q12H JEROD Administration
Dextrose/Sodium Chloride 1,000 mls @ 100 mls/hr 09/02/24 08:00 09/02/24 07:45
D5/0.9% Sodium Chloride IV 1,000 mls
.Q10H JEROD Administration
Lorazepam 0.5 mg 09/01/24 18:33
Lorazepam 0.5 Mg Tablet PO 09/29/24 18:32
BID PRN
anxiety
Sodium Chloride 0 flush 09/01/24 15:00
Sodium Chloride 0.9% (Flush) Syringe IV 09/29/24 14:59
PER PROTOCOL JEROD
Vitamin B Complex/Vitamin C 1 caplet 09/02/24 08:00 09/02/24 07:45
Vitamin B Complex With Vitamin C Caplet PO 09/30/24 07:59 1 caplet
DAILY JEROD Administration
Review of Systems
-
Overwhelming fatigue with mild shortness of breath left CVA tenderness with percutaneous stent .
Physical Exam
-
General: Appears in Distress; Negative Well Nourished
HEENT: Moist Mucous Membranes
Respiratory: Clear to Auscultation
Cardiac: Regular Rhythm
GI: Soft, Nondistended and Tender (RUQ)
Genito-urinary: Nephrostomy Tubes (L)
Musculoskeletal: No Clubbing, No Cyanosis and No Edema
Neuro: Awake, Alert, Oriented and AO x 3
Psych: Calm
Labs
Lab Results
WBC 11.3 10^3/uL (4.8-10.8) H 09/02/24 03:46
RBC 2.60 10^6/uL (4.70-6.10) L 09/02/24 03:46
Hgb 9.6 g/dL (13.0-18.0) L 09/02/24 03:46
Hct 27.6 % (39.0-52.0) L 09/02/24 03:46
MCV 106.2 fL (80.0-94.0) H 09/02/24 03:46
MCH 36.9 pg (27.0-31.0) H 09/02/24 03:46
MCHC 34.8 g/dL (33.0-37.0) 09/02/24 03:46
RDW 15.9 % (11.5-14.5) H 09/02/24 03:46
Plt Count 159 10^3/uL (130-400) 09/02/24 03:46
MPV 11.6 fL (7.4-10.4) H 09/02/24 03:46
Abs Immat Gran (auto) 0.1 10^3/uL (0-0.05) H 09/02/24 03:46
Absolute Neuts (auto) 10.3 10^3/uL (1.4-6.5) H 09/02/24 03:46
Absolute Lymphs (auto) 0.4 10^3/uL (1.2-3.4) L 09/02/24 03:46
Absolute Monos (auto) 0.6 10^3/uL (0.1-0.6) 09/02/24 03:46
Absolute Eos (auto) 0.0 10^3/uL (0-0.7) 09/02/24 03:46
Absolute Basos (auto) 0.0 10^3/uL (0-0.2) 09/02/24 03:46
Immature Gran % 0.6 % (0-0.5) H 09/02/24 03:46
Neutrophils % 90.7 % (42.2-75.2) H 09/02/24 03:46
Lymphocytes % 3.3 % (20.5-51.1) L 09/02/24 03:46
Monocytes % 4.9 % (1.7-9.3) 09/02/24 03:46
Eosinophils % 0.3 % (0-6) 09/02/24 03:46
Basophils % 0.2 % (0-2) 09/02/24 03:46
Creatinine 3.4 mg/dL (0.7-1.3) H 09/02/24 03:46
Vital Signs
Vital Signs
Temp Pulse Resp BP Pulse Ox
97.6 F 71 16 91/63 92
09/02/24 11:15 09/02/24 09:00 09/02/24 09:00 09/02/24 08:00 09/02/24 08:04
--- NOTE | 2024-09-02 14:12 | CM ---
Pt off unit. Unable to complete IA
[2024-09-02] MEDS: SOLU-CORTEF 50 MG IV (17:11)
[2024-09-02] MEDS: CELEXA 10 MG PO (17:11)
[2024-09-02] MEDS: HEPARIN 5000 UNITS SC (17:12)
[2024-09-02] MEDS: COMPAZINE 5 MG IV (21:39)
[2024-09-02] MEDS: ATIVAN 0.5 MG PO (22:39)
[2024-09-03] VITALS (12 sets, daily range): BP systolic 99–128; BP diastolic 57–83
[2024-09-03] MEDS: HEPARIN 5000 UNITS SC ×4 (00:58→23:06)
[2024-09-03] MEDS: SOLU-CORTEF 50 MG IV ×3 (00:58→15:56)
--- NOTE | 2024-09-03 03:36 | PTCARENOTE ---
Received pt from anselmo GOMEZ. Pt aaox3, able to make needs known. Pt c/o nausea with 3 episodes of emesis. MACHINE SET UP notified via tiger text. Orders for compazine given. Pt reported relief of nausea shortly after. Pt requested something to help him sleep.
0.5mg PO ativan given once nausea had passed. Pt placed on 2LNC HS due to sleep apnea. VSS. Call bailey and belongings within reach. Care ongoing.
[2024-09-03 05:33] LABS: % Basophils 0.1 % (0-2); % Immature Granulocytes 0.6 % (0-0.5); % Lymphocytes 2.7 % (20.5-51.1); % Neutrophils 92.6 % (42.2-75.2); Absolute Immature Granulocytes 0.1 10^3/uL (0-0.05); Absolute Lymphocytes 0.3 10^3/uL (1.2-3.4); Absolute Monocytes 0.4 10^3/uL (0.1-0.6); Absolute Neutrophils 8.9 10^3/uL (1.4-6.5); Hematocrit 27.5 % (39.0-52.0); Hemoglobin 9.4 g/dL (13.0-18.0); Mean Corp Hgb Conc. 34.2 g/dL (33.0-37.0); Mean Corpuscular Hgb 36.3 pg (27.0-31.0); Mean Corpuscular Volume 106.2 fL (80.0-94.0); Mean Platelet Volume 11.3 fL (7.4-10.4); Nucleated Red Blood Cells % 0 % (-); Platelet Count 154 10^3/uL (130-400); Red Blood Cell Count 2.59 10^6/uL (4.70-6.10); Red Cell Dist. Width 15.8 % (11.5-14.5); White Blood Cell Count 9.6 10^3/uL (4.8-10.8)
[2024-09-03 05:43] LABS: ALT (SGPT) 25 U/L (0-50); AST (SGOT) 40 U/L (17-59); Albumin 1.8 g/dl (3.5-5.0); Alkaline Phosphatase 167 U/L (38-126); Blood Urea Nitrogen 63 mg/dl (9-20); Calcium 6.3 mg/dl (8.4-10.2); Carbon Dioxide 16 mmol/L (22-30); Chloride 114 mmol/L (98-107); Estimated Creatinine Clearance 20 ml/min; Glucose 149 mg/dl (70-99); Potassium 4.5 mmol/L (3.5-5.1); Sodium 136 mmol/L (135-145); Total Bilirubin 0.4 mg/dl (0.2-1.3); eGFR 22.15
[2024-09-03] MEDS: D5/0.9% SODIUM CHLORIDE 1000 IV (06:41)
[2024-09-03] MEDS: CALCIUM GLUCONATE 100 IV ×2 (06:41→15:56)
[2024-09-03] MEDS: B COMPLEX w/VITAMIN C 1 CAPLET PO (07:56)
[2024-09-03] MEDS: VIBRAMYCIN 260 MG IV ×2 (09:13→23:06)
--- NOTE | 2024-09-03 09:18 | W.PN.HOSP.TC ---
Addendum entered and electronically signed by Raz Ledbetter MD 09/03/24 16:30:
Discussed with pulm-stop iv steroids, back to his oral prednisone in am and cont antibiotics. Noted palliative care and nephrology input.
Original Note:
Today's Communication/Plan
-
Antibiotics. IV fluids.
Assessment / Plan
Assessment / Plan
Physical exam:
General: Acutely ill. Cachectic
HEENT: Normocephalic, Atraumatic and Moist Mucous Membranes
Respiratory: Some rhonchi bilateral; Negative Wheezes, Rales
Cardiac: Regular Rhythm and S1/S2
GI: Soft, +tender and Nondistended. PCN in place
Musculoskeletal: No Clubbing, No Cyanosis and No Edema
Neuro: Awake, Alert and Oriented, no neurological deficits but generalized weakness.
Psych: Down mood.
A/P:
Left obstructive uropathy:
Left distal ureter 4.5 cm stone
Status post left percutaneous tube placed
Known history of right kidney atrophy
Right kidney mass kidney-->defer to urology further eval
Urology asked interventional radiology for possible exchange to internal stent
Metastatic prostate cancer:
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
There are liver and bony metastasis
Appreciate oncology consult
Will get palliative care involved-discussed with palliative care today
Sepsis present on admission due to pneumonia (interstitial pneumonitis/interstitial lung disease has been considered):
Continue IV doxycycline
Restart IV ceftriaxone today
Given hydrocortisone 200 mg IV x 1 yesterday on 09/02 and started on 50 mg every 8 hours afterwards.
Follow-up cultures
White blood cell count 21.9--> 9.6 today
Pulmonary consult
Anemia:
Continue to monitor hemoglobin closely
Hemoglobin 9.4 today
Stable
RADHA on CKD:
Multifactorial etiology
Creatinine 3.9--> 2.9 today
Continue to monitor renal function closely
Metabolic acidosis:
Monitor acidosis closely
Might consider bicarb infusion--> currently on D5 NS.
Hypocalcemia:
Replete and trend
Restart calcium supplementation
Severe protein calorie malnutrition:
Monitor nutrition status
History of ischemic cardiomyopathy:
Continue monitor volume status
COPD:
Monitor respiratory status
Interstitial lung disease:
Monitor respiratory status
CAD:
Restart aspirin
Chest pain-free
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
Depression:
Continue antidepressant
Hyperkalemia:
Resolved
DVT prophylaxis:
Heparin SQ
CODE STATUS:
Full code
Prognosis guarded overall
Total time spent on today's encounter was 52 minutes which included time spent in counseling the patient/family regarding diagnosis and treatment plan as listed above, goals of care, and symptom management. Case was discussed with nursing staff,
specialists, and care coordinators/case management. All labs and imaging personally reviewed by me. Remainder the time spent in detailed review of previous records, lab data, imaging, and other medical provider documentation.
Anticipated Discharge: > 48 hours
Subjective/Interval History
-
Date of Service: September 03, 2024
Patient with generalized weakness and generalized pain. Afebrile. Looks frail overall.
Objective Data
-
Labs:
Laboratory Results
09/03/24
04:53
WBC 9.6
Hgb 9.4 L
Hct 27.5 L
Plt Count 154
Sodium 136
Potassium 4.5
Chloride 114 H
Carbon Dioxide 16 L
BUN 63 H
Creatinine 2.9 H
Glucose 149 H
Calcium 6.3 L*
Total Bilirubin 0.4
AST 40
ALT 25
Alkaline Phosphatase 167 H
Vital Signs:
Vital Signs
Temp Pulse Resp BP Pulse Ox
97.3 F 62 15 111/72 96
09/03/24 07:28 09/03/24 08:00 09/03/24 08:00 09/03/24 08:00 09/03/24 08:00
I&O
09/02/24 09/03/24 09/04/24
06:59 06:59 06:59
Intake Total 300 / 300 1939
Output Total 350 / 350 340 / 340
Balance -50 / -50 1600 / 1600
--- NOTE | 2024-09-03 11:06 | W.PN.URO.CBU ---
Today's Communication / Plan
-
irad will reeval for possible exchange to internal stent
Assessment / Plan
-
new left obstructive uropathy in chronically ill male with mets from acp New left hydro with emile due to 4.5 cm of stones distal ureter Left perc tube placed [ rt kidney atrophic ] draining but creatinine still elevated. At this time I spoke
with pt, family and IRAD Next step is to try and internalize the perc to if able to nephroureteral stent as to obviate need for drainage bag in this desperately ill man. if fails then difficult decision as to whether it is appropriate to try
and remove stones. also pt scheduled wed for pluvict
Diagnosis
-
Date of Service: September 03, 2024
-
Patient Diagnosis:
Post Op Day:
Patient Diagnosis:
Post Op Day:
Patient Diagnosis:metastatic acp with new onset left hydro due to distal stones left ureter and atrophic rt kidney Pt s/p rpp and xrt and chemo , but progressive osseous and liver mets no obvious tierra disease Now hydro vomiting creatinine
1.4 to 3.9 and potassium 6.0
Post Op Day: 1 s/p left perc tube at [facility]
Subjective
-
weak but improved not really interested and i agree in stone surgery but would like if safe inernalize left perc tube to nephrouretral stent
Objective
-
Vital Signs
Temp Pulse Resp BP Pulse Ox
97.3 F 66 16 110/70 97
09/03/24 07:28 09/03/24 10:00 09/03/24 10:00 09/03/24 10:00 09/03/24 10:00
Intake and Output
09/02/24 09/03/24 09/04/24
06:59 06:59 06:59
Intake Total 300 / 300 1940 / 1940 480 / 480
Output Total 350 / 350 340 / 340 200 / 200
Balance -50 / -50 1600 / 1600 280 / 280
Intake:
Oral fluids 300 / 300 480 / 480 480 / 480
IV fluids (Total) 1200 / 1200
IV piggybacks 260 / 260
Output:
Urinary Drain Output (Total) 350 / 350 340 / 340
Left Nephrostomy 350 / 350 340 / 340
Urine, Voided 200 / 200
Other:
How many times incontinent 1
MODERATE amount urine
Number of unmeasured liquid
stools
Rectum 3
Laboratory Results
09/03/24 04:53
09/03/24 04:53
Review of Systems
-
: Flank Pain
Physical Exam
-
General - well developed, well nourished, no acute distress
Chest - clear bilaterally
Abdomen - soft, non-tender, positive bowel sounds, no CVAT, no incisional pain or distention
Genitalia - normal
Rectal - normal
Skin - warm & dry with no rash
Neuro - AOx3, no motor deficits
Extremities - no clubbing, no cyanosis, no edema
Incision - clean, dry
Dressing - clean, dry, intact
Care Review
Data Reviewed
Discussed with: Nursing and [facility]
--- NOTE | 2024-09-03 13:08 | CM ---
Addendum entered by Ivelisse Truong RN 09/03/24 13:19:
CM Consult: Advanced Directive
Provided, and patient wants to wait for his to arrive to complete.
Original Note:
Patient with Hx metastatic prostate CA with Dx RADHA on UTI with dehydration and L obstructing nephrolithiasis, pneumonia, abdominal pain. Room air. Receiving IVF, IV Abx, IV Solucortef. Per nurse assessment; weak gait/transfers. PT Eval pending.
Met with patient who resides with his Marilin and brother in law Wayne in a 2 story house, with first floor bedroom/bath.
The patient was assisted with ADLs for bathing, dressing and incontinence/diapers by his .
In the past month he was ambulatory for short distances at home.
For the past 5 days the patient was unwell and mostly on bedrest and not walking.
DME - RW, SPC, w/c
No prior VN or SNF.
PCP - Fei Braga
Pharmacy - [facility]
Patient seems discouraged about his status. He says he is aware he may need urological surgery while here and that his outpatient radiation therapy will be postponed due to hospitalization. The patient states he was given a prognosis of 4 months
to live. He then talked about having been for 54 yrs and that his condition is hard on his . Emotional support provided. 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
Plan follow up after seen by PT.
--- NOTE | 2024-09-03 13:21 | CM ---
Patient with Hx metastatic prostate CA with Dx RADHA on UTI with dehydration and L obstructing nephrolithiasis, pneumonia, abdominal pain. Room air. Receiving IVF, IV Abx, IV Solucortef. Per nurse assessment; weak gait/transfers. PT Eval pending.
Met with patient who resides with his Marilin and brother in law Wayne in a 2 story house, with first floor bedroom/bath.
The patient was assisted by his with ADLs for bathing, dressing and incontinence/diapers.
In the past month he was ambulatory for short distances using both RW & SPC. W/c is used when going out.
For the past 5 days the patient was unwell and mostly on bedrest and not walking.
DME - RW, SPC, w/c
No prior VN or SNF.
PCP - Fei Braga
Pharmacy - [facility] [address], [place]
Patient seems discouraged about his status. He says he is aware he may need urological surgery while here and that his outpatient radiation therapy will be postponed due to hospitalization. The patient states he was given a prognosis of 4 months
to live. He then talked about having been for 54 yrs and that his condition is hard on his . Emotional support provided. Offered deputy chief executive and patient declined.
CM Consult: Advanced Directive
Provided, and patient wants to wait for his to arrive to complete.
Plan follow up after seen by PT.
[2024-09-03] MEDS: STERILE WATER FOR INJECTION 10 ML IV (13:52)
[2024-09-03] MEDS: TUMS CHEWABLE TABLET 200 MG PO (13:52)
[2024-09-03] MEDS: ROCEPHIN 1000 MG IV (13:52)
--- NOTE | 2024-09-03 15:14 | W.CON.NEPH ---
Consultation
-
Date/Time Consultation Requested: 09/03/2024 2 PM
Date/Time Consultation Performed: 09/03/2024 3 PM
Requesting Provider: Dr. Ledbetter
Performing Provider: Dr. Alston
Reason for Consultation: RADHA
Medical History
-
Chief Complaint: RADHA
History of Present Illness:
This is a 73-year-old gentleman who has prostate cancer status post prostatectomy March 2019 with rising PSA and metastatic disease to bones and liver currently being treated with Xgeva/Trelstar. He has COPD though not on inhaler or supplemental
oxygen therapy. He does have coronary artery disease on aspirin therapy. He presented to the emergency room because of failure to thrive. His oral intake has been very poor and he has been getting weaker over time. He has right upper quadrant
discomfort with decreased urine output. In the emergency room he was noted to have a creatinine of 3.9 open acute kidney injury from a baseline of 1.[address] scan without contrast IV demonstrated osteoblastic disease with left
hydroureteronephrosis due to a obstructive stone at the left UVJ. He underwent left nephrostomy tube placement with some improvement of the hydronephrosis on follow-up ultrasound. Blood work is also showing metabolic acidosis and hypocalcemia.
Past Medical History
Coronary Artery Disease s/p TANYA (most recent August 2022)
Ischemic Cardiomyopathy
Non-Sustained VT
Essential Hypertension
Hyperlipidemia
CKD Stage 3B
COPD
Interstitial Lung Disease
Metastatic Prostate Cancer s/p Prostatectomy and Radiation, recurrent and involvement of liver and bone
Depression
Cardiac Stents
Hernia Repair
Carpal Tunnel Release
Nephrolithiasis
Social History
Tobacco: Smoker
Alcohol: Occasional
Family History
Family History: Not Pertinent
Allergies / Home Medications
Allergy/AdvReac Type Severity Reaction Status Date / Time
adhesive tape [Adhesive Tape] Allergy Has not Verified 10/11/23 17:18
happened
since 2013
�Medication �Instructions �Recorded �Confirmed �Type
triptorelin pamoate 22.5 mg IM 22.5 mg IM [id number] Cancer 12/26/20 09/01/24 History
suspension (Trelstar)
enzalutamide 80 mg tablet (Xtandi) 80 mg PO BID Cancer 07/12/22 09/01/24 History
denosumab 120 mg/1.7 mL (70 mg/mL) 120 mg SC QMONTH BONE HEALTH 05/16/23 09/01/24 History
subcutaneous solution (Xgeva)
prednisone 5 mg tablet 5 mg PO BID Anti-Inflammatory 05/16/23 09/01/24 History
aspirin 81 mg tablet,delayed 81 mg PO DAILY Blood Clot 09/01/24 09/01/24 History
release Prevention/Tx
calcium 600 mg (as 1 tab PO BID Supplement 09/01/24 09/01/24 History
carbonate)-vitamin D3 5 mcg (200
unit) tablet
citalopram 10 mg tablet 10 mg PO DAILY Mental 09/01/24 09/01/24 History
Health/Anxiety
lorazepam 0.5 mg tablet 0.5 mg PO BID PRN anxiety 09/01/24 09/01/24 History
vitamin B complex 1 tab PO DAILY Supplement 09/01/24 09/01/24 History
Review of Systems
-
No chest pain or shortness of breath. Poor appetite
All other systems: Negative unless noted
Physical Exam
Vital Signs
Vital Signs
Temp Pulse Resp BP Pulse Ox
97.5 F 78 19 113/69 98
09/03/24 11:25 09/03/24 14:00 09/03/24 14:00 09/03/24 14:00 09/03/24 14:00
Lab Results
WBC 9.6 10^3/uL (4.8-10.8) 09/03/24 04:53
RBC 2.59 10^6/uL (4.70-6.10) L 09/03/24 04:53
Hgb 9.4 g/dL (13.0-18.0) L 09/03/24 04:53
Hct 27.5 % (39.0-52.0) L 09/03/24 04:53
Plt Count 154 10^3/uL (130-400) 09/03/24 04:53
Sodium 136 mmol/L (135-145) 09/03/24 04:53
Potassium 4.5 mmol/L (3.5-5.1) 04 04:53
Chloride 114 mmol/L (98-107) H 09/03/24 04:53
Carbon Dioxide 16 mmol/L (22-30) L 09/03/24 04:53
BUN 63 mg/dl (9-20) H 09/03/24 04:53
Creatinine 2.9 mg/dL (0.7-1.3) H 09/03/24 04:53
eGFR 22.15 09/03/24 04:53
Glucose 149 mg/dl (70-99) H 09/03/24 04:53
Calcium 6.3 mg/dl (8.4-10.2) L* 09/03/24 04:53
Phosphorus 3.6 mg/dl (2.5-4.5) 09/01/24 10:33
Albumin 1.8 g/dl (3.5-5.0) L 09/03/24 04:53
Laboratory Tests
07/17/24
13:[address] abdomen pelvis 09/01/2024
IMPRESSION:
1. Extensive adjacent urinary calculi within the distal left ureter extending over the distal approximately 4.5 cm of the left ureter extending to the left ureterovesical junction, with associated moderate left hydroureteronephrosis, new from
08/20/2024.
2. Probable cystitis.
3. Small bilateral pleural effusions. Scattered mild atelectasis and/or pneumonia within the bilateral lower lung zones.
4. Additional chronic incidental findings as described.
Physical Exam
Patient is awake alert oriented and in no distress. Mood and affect were pleasant, insight and judgment were good. Pupils are equal round and reactive to light, extraocular movements are intact, sclera were anicteric. Hearing was normal, ears and
nose are intact. Oropharynx was clear. Neck was supple with trachea midline and no thyromegaly. Heart was regular rate and rhythm without rubs. Lower extremities without edema. Lungs were clear to auscultation bilaterally and with normal
excursion. Abdomen was soft, nontender, with normal active bowel sounds, and no hepatosplenomegaly. Skin was without rash and with poor turgor.
Data Reviewed
-
Radiology: Image Personally Visualized and interpreted (Chest x-ray 09/02/2024 by my reading shows bibasilar infiltrates, left effusion)
CT Scan: Report Reviewed by me
Labs: Labs Reviewed by me
Old Records: Reviewed
Assessment/Plan
-
Assessment
RADHA
Left obstructive uropathy stone at UVJ
Left percutaneous nephrostomy
Atrophic right kidney
Metastatic recurrent prostate cancer status post prostatectomy
Metabolic acidosis
Hypocalcemia
Anemia
Nephrolithiasis
Plan
Continue IV fluids, switch to bicarbonate based
IV calcium
Follow BMP
Eventual attempt to internalize left percutaneous nephrostomy stent
Discussed with patient and
--- NOTE | 2024-09-03 15:34 | CON.PUL ---
Consultation
Consultation Request
Date/Time Consultation Requested: 09/03/2024
Date/Time Consultation Performed: 09/03/2024
Requesting Provider: Raz Ledbetter
Performing Provider: Elba Moe
Reason for Consultation: Shortness of breath
Medical History
-
Chief Complaint: Failure to thrive, weakness
History of Present Illness:
Patient is a very pleasant 73 old gentleman with known history of metastatic prostate cancer with prior history of prostatectomy who presented to the hospital with generalized weakness and failure to thrive. He also had decreased p.o. intake lately
and was quite dehydrated. Reportedly he had mild cough over who presented to the hospital with generalized weakness and failure to thrive. He also had decreased p.o. intake lately and was quite dehydrated. Reportedly he had mild cough over the
days preceding hospitalization. Patient reports a dry cough without fever, chills or hemoptysis. He denied any sore throat, runny nose or any sick contacts. Workup in the emergency room was suggestive of acute renal failure and subsequent workup
was suggestive of progressive metastatic disease with obstructive uropathy. Patient also had a chest x-ray which was suggestive of interstitial pneumonitis versus pneumonia and patient was started on antibiotics. Reportedly has been on prednisone
at home and was started on IV hydrocortisone for stress dose.
Pulmonary consultation was requested for further input regarding interstitial pneumonitis versus ILD versus pneumonia.
Past Medical History: Reports Other
Additional Past Medical History:
Coronary Artery Disease s/p TANYA (most recent August 2022)
Ischemic Cardiomyopathy
Non-Sustained VT
Essential Hypertension
Hyperlipidemia
CKD Stage 3B
COPD
Interstitial Lung Disease
Metastatic Prostate Cancer s/p Prostatectomy and Radiation
Depression
Past Surgical History: Reports Other
Additional Past Surgical History:
Cardiac Stents
Prostatectomy
Hernia Repair
Carpal Tunnel Release
Social History
Tobacco: Smoker (1 ppd)
Personal:
Family History
Family History: CAD
Allergies / Home Medications
Allergies reflects when Allergies were last updated in [employer].
Home Medications with original date entered in [employer]
Allergy/Medication List:
Allergies / Home Medications
Allergies
Allergy/AdvReac Type Severity Reaction Status Date / Time
adhesive tape [Adhesive Tape] Allergy Has not Verified 10/11/23 17:18
happened
since 2013
Home Medications
�Medication �Instructions �Recorded �Confirmed �Last Taken �Type
triptorelin pamoate 22.5 mg IM 22.5 mg IM [id number] Cancer 12/26/20 09/01/24 08/07/24 History
suspension (Trelstar)
enzalutamide 80 mg tablet (Xtandi) 80 mg PO BID Cancer 07/12/22 09/01/24 08/29/24 History
denosumab 120 mg/1.7 mL (70 mg/mL) 120 mg SC QMONTH BONE HEALTH 05/16/23 09/01/24 08/07/24 History
subcutaneous solution (Xgeva)
prednisone 5 mg tablet 5 mg PO BID Anti-Inflammatory 05/16/23 09/01/24 08/29/24 History
aspirin 81 mg tablet,delayed 81 mg PO DAILY Blood Clot 09/01/24 09/01/24 08/29/24 History
release Prevention/Tx
calcium 600 mg (as 1 tab PO BID Supplement 09/01/24 09/01/24 08/29/24 History
carbonate)-vitamin D3 5 mcg (200
unit) tablet
citalopram 10 mg tablet 10 mg PO DAILY Mental 09/01/24 09/01/24 08/29/24 History
Health/Anxiety
lorazepam 0.5 mg tablet 0.5 mg PO BID PRN anxiety 09/01/24 09/01/24 08/29/24 History
vitamin B complex 1 tab PO DAILY Supplement 09/01/24 09/01/24 08/29/24 History
Review of Systems
-
Hematologic/Lymphatic: Other (No new symptoms reported)
Vitals / Labs / Diagnostic Testing
Vital Signs
Temp Pulse Resp BP Pulse Ox
97.5 F 78 19 113/69 98
09/03/24 11:25 09/03/24 14:00 09/03/24 14:00 09/03/24 14:00 09/03/24 14:00
Lab Data
09/03/24 04:53
09/03/24 04:53
Microbiology
09/01/24 13:32 Blood/Venous Blood Culture - Preliminary
No Growth in 48 hours- Final report to follow
09/01/24 17:18 Urine Urine Culture - Preliminary
NO GROWTH
09/02/24 01:34 Sputum Respiratory Culture - Preliminary
Usual Respiratory Audie
09/02/24 01:34 Sputum Gram Stain - Preliminary
09/02/24 09:01 Urine Streptococcus pneumoniae Antigen (M - Final
Negative for Streptococcus pneumoniae antigen.
A negative result does not exclude infection with
Streptococcus pneumoniae. Clinical correlation is
recommended.
09/02/24 08:59 Nasal Swab Influenza Types A & B (EBONI) - Final
Negative for Influenza A & B, NAAT
Negative results must be combined with clinical observations
and patient history.
Nucleic Acid Amplification test (NAAT)performed on the
[employer] platform.
09/01/24 17:18 Urine Legionella Urinary Antigen - Final
Negative for Legionella pneumophila Serogroup 1 antigen.
A negative result does not rule out the possiblity of
Legionella infection due to other serogroups or species of
Legionella. Clinical correlation is recommended.
Diagnostic Testing:
Physical Exam
-
HEENT: Normocephalic
Cardiovascular: S1/S2
Respiratory: Clear and Other (No rhonchi or wheezing on exam)
GI: Soft and Non Distended
Neurology: Awake and Alert
Skin: Warm
General: Other (Not in any respiratory distress)
Assessment
-
#1. Bibasilar pneumonia. Patient's admission x-ray had moderate amount of groundglass airspace opacities in the right midlung and the both lower lobes. He has been on antibiotic with ceftriaxone and doxycycline. Follow-up imaging on 09/02 shows
improving bibasilar infiltrates with only a trace left-sided effusion which appears to be chronic.
-Recommend treating it as a community-acquired pneumonia, continue ceftriaxone and doxycycline, favor a 5-day course of antibiotics
-MRSA screen negative. Influenza screen negative. COVID-19 negative. Strep and Legionella antigen negative. Sputum culture showing usual respiratory audie
-I reviewed patient's prior CT scans and x-rays, these changes are not suggestive of interstitial lung disease
-Chemotherapy induced pneumonitis in differential however appears to be less likely considering quick improvement with antibiotics. Even though most chemotherapy agents can cause pneumonitis, it is more commonly seen with immunotherapy. Patient is
currently on room air, saturating well and does not have any hypoxia or respiratory symptoms. Would favor continuing patient's prescribed chemotherapy per oncology service.
-Can discontinue IV steroids from pulmonary standpoint. I am unclear why patient had been on prednisone at home, discussed with primary team to evaluate further
-If patient develops hypoxia or respiratory symptoms, recommend CT chest without contrast for further evaluation
#2. Bilateral upper lobe emphysema and history of smoking. Suspect patient has underlying COPD. He does not have much symptoms though and is not inclined to use any inhalers. Patient reports that he has cut down the amount of smoking and is
currently down to half pack per day
-In view of minimal symptoms and patient preference, hold off inhalers
-Depending on patient's goals of care, can pursue pulmonary function testing as outpatient
-Encourage patient to quit smoking
Other medical diagnoses:
-Failure to thrive with metastatic prostate cancer s/p prostatectomy in March 2019
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
-Coronary artery disease, s/p PCI in 2022
-Acute renal failure with obstructive uropathy, new left hydronephrosis s/p percutaneous nephrostomy
Total time spent on this consultation/encounter _65___ minutes which includes review of history, physical exam, medications, laboratory data, personal review of imaging, extensive review of outpatient records, discussion with care team and
respiratory therapy.
Data:
CXR 09/02/2024: Improving bibasilar pneumonia, trace left sided effusion
CXR 08/31/2024: 1. Moderate amount of ground-glass airspace opacity in the peripheral right midlung and in both lower lobes. Diagnostic possibilities are (1) bilateral pneumonia or (2) an inflammatory pneumonitis.
2. Small left pleural effusion.
3. Mildly decreased bilateral lung volumes.
4. EXTENSIVE MULTIFOCAL BLASTIC OSSEOUS METASTATIC DISEASE.
5. Right IJ chemotherapy Mediport in place.
CT Abd/Pelvis 08/2024: 1. Extensive adjacent urinary calculi within the distal left ureter extending over the distal approximately 4.5 cm of the left ureter extending to the left ureterovesical junction, with associated moderate left
hydroureteronephrosis, new from 08/20/2024.Probable cystitis.
2. Extensive hepatic metastasis
3. Small bilateral pleural effusions. Scattered mild atelectasis and/or pneumonia within the bilateral lower lung zones.
4. Additional chronic incidental findings as described.
PET-CT 07/2024: Progressive disease.
PSMA uptake in multiple prior existing osseous lesions has increased, and a few new lesions are demonstrated.
Progressive hepatic metastatic disease.
No radiopharmaceutical PSMA uptake in the prostate bed or lymph nodes.
CT 09/2022: Bilateral upper lobe emphysema changes
Cardiac Cath 2022: EF 54%, infero-lateral hypokinetic wall, Mild CAD unchanged from 2022
ECHO 08/2022: LVEF 40-45%. Infero-lateral segment hypokinesis. RV Normal. Estimated Pulmonary Artery Pressure 20-25 mm
Cardiac Cath 08/2022: PCI of Dominant Left Cx with TANYA for 100% Occlusion. Elevated filling pressures .
--- NOTE | 2024-09-03 15:35 | W.PN.ONC ---
Today's Communication / Plan
-
Possible internalization of stent tomorrow. I advised him and his that the radioactive therapy scheduled for September 05 should be pushed back by 1 week. We will continue to follow.
Impression
Impression
Left hydro secondary to renal lithiasis now with percutaneous cath
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
Liver and bony metastases
Urinary tract infection
Bilateral basilar pneumonia
COPD
Plan
Plan
Repeat chest x-ray
Anticipate TJU for Pluvicto if performance status permits
Continue antibiotics per primary team
Consider internalization of stent with IR in the future
Subjective/Objective
Subjective/Objective
He is feeling about the same. He remains very weak. He is not having much in the way of pain. Examination is otherwise unchanged.
Vital Signs:
Vital Signs
Temp Pulse Resp BP Pulse Ox
97.5 F 78 19 113/69 98
09/03/24 11:25 09/03/24 14:00 09/03/24 14:00 09/03/24 14:00 09/03/24 14:00
Lab Results:
Laboratory Data
WBC 9.6 10^3/uL (4.8-10.8) 09/03/24 04:53
Hgb 9.4 g/dL (13.0-18.0) L 09/03/24 04:53
Plt Count 154 10^3/uL (130-400) 09/03/24 04:53
PT 15.7 Sec (11.4-14.6) H 09/01/24 20:14
INR 1.23 09/01/24 20:14
eGFR 22.15 09/03/24 04:53
[2024-09-03] MEDS: D5/0.9% SODIUM CHLORIDE IV (15:47)
--- NOTE | 2024-09-03 15:54 | W.CON.PAL ---
Consultation
-
Date/Time Consultation Requested: 09/03/24
Date/Time Consultation Performed: 09/03/2024
Requesting Provider: DR. Ledbetter
Performing Provider: DR. Uriostegui
Reason for Consult: Goals of Care Discussion
Primary Diagnosis: Stage IV prostate cancer
Reason for Admission
Illness Course/HPI
Roque is a 73 y/o male admitted to [facility] with weakness, found to have Joanne from Left 4.5 uretral stone, s/p left percutaneous nephrostomy tube. Hx of IV prostate cacner with bone/liver mets.
Functional Status
Lives with Marilin who is his primary early breastfeeding care specialist. is well supported by family - children and grandchildren
Goals of Care Discussion
-
Individuals Present for Discussion & Relationship to Patient:
Patient,
Patient able to participate in discussion at time of visit: Yes
Patient Goals
Patient shares that he has had a long and happy life with his of 54 years. He is most worried about her and wants to make sure she is well supported. His current health related goals are treatment oriented - I will try anything. He was
scheduled to start a 'liquid radiation' this week, and hopes to trial other cancer directed treatments in near future if his kidney numbers improve. he understands that it is not guaranteed that they will nor that any treatments would improve his
cancer situation. he understands that the treatments are not curative.
He is not ready yet to consider hospice care.
Regarding code status - he reports his is his Medical decision maker if he cannot make decisions. at this time he would want an attempt at cpr, but if wasnt working or looks like he could not survive without a ventialtor/machine then his
knows to gather the family and at that time focus on comfort. wishes to reman full code at this time.
Discussed outpatient palliative care services.
Pain & Symptom Assessment
-
reports feeling tired but improved from when he first came to hospital
Objective Data
-
Objective Data:
Vital Signs
Temp Pulse Resp BP Pulse Ox
97.5 F 78 19 113/69 98
09/03/24 11:25 09/03/24 14:00 09/03/24 14:00 09/03/24 14:00 09/03/24 14:00
Laboratory Results
09/03/24 04:53
09/03/24 04:53
PT 15.7 Sec (11.4-14.6) H 09/01/24 20:14
INR 1.23 09/01/24 20:14
Total Protein 4.0 g/dl (6.3-8.2) L 09/03/24 04:53
Albumin 1.8 g/dl (3.5-5.0) L 09/03/24 04:53
Urine Color Cristy 09/01/24 17:18
Urine Clarity Slightly cloudy (Clear) 09/01/24 17:18
Urine pH 5.0 (5.0-9.0) 09/01/24 17:18
Ur Specific [place] 1.010 (<1.030) 09/01/24 17:18
Urine Ketones Negative (Negative) 09/01/24 17:18
Urine Occult Blood 4+ (Negative) A 09/01/24 17:18
Urine Nitrite Negative (Negative) 09/01/24 17:18
Urine Bilirubin Negative (Negative) 09/01/24 17:18
Ur Leukocyte Esterase 2+ (Negative) A 09/01/24 17:18
Urine Albumin 3+ (Neg - Trace) A 09/01/24 17:18
Palliative Performance Scale
Palliative Performance Scale:
PPS Level Ambulation Activity & Evidence of Disease Self Care Intake Conscious Level
100% Full Normal Activity & Work; Full Intake Full
No Evidence of Disease
90% Full Normal Activity & Work; Full Normal Full
Some Evidence of Disease
80% Full Normal Activity with Effort Full Normal or Full
Some Evidence of Disease Reduced
70% Reduced Unable Normal Job/Work Full Normal or Full
Significant Disease Reduced
60% Reduced Unable Hobby/Housework Occasional Normal or Full or Confusion
Significant Disease Assistance Reduced
50% Mainly Sit/Lie Unable to do Any Work Considerable Normal or Full or Confusion
Extensive Disease Assistance Req'd Reduced
40% Mainly in Bed Unable to do Most Activity Mainly Assistance Normal or Full or Drowsy;
Extensive Disease Reduced +/- Confusion
30% Totally Bed Unable to do Any Activity Total Care Normal or Full or Drowsy;
Bound Extensive Disease Reduced +/- Confusion
20% Totally Bed Bound Unable to do Any Activity Total Care Minimal to Full or Drowsy;
Extensive Disease Sips +/- Confusion
10% Totally Bed Bound Unable to do Any Activity Total Care Mouth Care Drowsy or Coma;
Extensive Disease Only +/- Confusion
0%
PPS Score Level:
Palliative Performance Score Response
Palliative Performance Score Response: 40%
Physical Exam
-
Neuro: Awake and Alert
Psych: Calm
Assessment / Plan
-
Assessment/Plan:
Goals are treatment oriented
interested in outpatient palliative care after discharge
total floor time 60 mins
[2024-09-03] MEDS: SODIUM BICARBONATE 1150 MEQ IV (16:05)
--- NOTE | 2024-09-03 16:23 | PTCARENOTE ---
Patient AOx3. Patient can have flat affect at times. Patient on RA. Most, occasional, non-productive cough. NSR on monitor. VSS. Poor appetite. Patient c/o gas pains. Tums ordered and given to patient per MAR. Patient stated that Tums 'really helped
gas pains'. L side perc tube draining yellow urine with occasional stones. Patient bladder scanned due to low urine output. Patients skin is pale. IVF running per order. Call bailey within reach, bed in lowest position.
[2024-09-03] MEDS: CELEXA 10 MG PO (17:01)
[2024-09-03] MEDS: OSCAL 500 + D 500 MG PO (19:40)
[2024-09-04] VITALS (26 sets, daily range): BP systolic 67–126; BP diastolic 59–84; PULSE 76; O2SAT 97; BMI 20.9
--- NOTE | 2024-09-04 00:30 | PTCARENOTE ---
Received pt from anselmo GOMEZ. Pt aaox3, able to make needs known. Assessment remains unchanged from previous night. Pt remains on IV doxycycline and IVF with sodium bicarb. 2LNC applied HS d/t sleep apnea. Pt NPO @midnight for internalization of
stent tomorrow. Call bailey and belongings within reach. VSS. Care ongoing.
[2024-09-04 05:01] LABS: % Basophils 0.1 % (0-2); % Immature Granulocytes 0.4 % (0-0.5); % Lymphocytes 5.6 % (20.5-51.1); % Monocytes 5.2 % (1.7-9.3); % Neutrophils 88.7 % (42.2-75.2); Absolute Immature Granulocytes 0.1 10^3/uL (0-0.05); Absolute Lymphocytes 0.8 10^3/uL (1.2-3.4); Absolute Monocytes 0.7 10^3/uL (0.1-0.6); Absolute Neutrophils 11.9 10^3/uL (1.4-6.5); Hematocrit 30.1 % (39.0-52.0); Hemoglobin 10.4 g/dL (13.0-18.0); Mean Corp Hgb Conc. 34.6 g/dL (33.0-37.0); Mean Corpuscular Hgb 36.4 pg (27.0-31.0); Mean Corpuscular Volume 105.2 fL (80.0-94.0); Mean Platelet Volume 11.6 fL (7.4-10.4); Nucleated Red Blood Cells % 0 % (-); Platelet Count 185 10^3/uL (130-400); Red Blood Cell Count 2.86 10^6/uL (4.70-6.10); Red Cell Dist. Width 15.8 % (11.5-14.5); White Blood Cell Count 13.4 10^3/uL (4.8-10.8)
[2024-09-04 05:26] LABS: Blood Urea Nitrogen 64 mg/dl (9-20); Calcium 7.2 mg/dl (8.4-10.2); Carbon Dioxide 19 mmol/L (22-30); Chloride 112 mmol/L (98-107); Estimated Creatinine Clearance 25 ml/min; Glucose 76 mg/dl (70-99); Potassium 4.1 mmol/L (3.5-5.1); Sodium 138 mmol/L (135-145); eGFR 27.79
[2024-09-04] MEDS: SODIUM BICARBONATE 1150 MEQ IV ×2 (05:35→19:14)
[2024-09-04] MEDS: DELTASONE 5 MG PO ×2 (08:31→19:14)
[2024-09-04] MEDS: ASPIR LOW (ENTERIC COATED) 81 MG PO (08:31)
[2024-09-04] MEDS: HEPARIN 5000 UNITS SC ×3 (08:31→23:06)
[2024-09-04] MEDS: B COMPLEX w/VITAMIN C 1 CAPLET PO (08:31)
[2024-09-04] MEDS: OSCAL 500 + D 500 MG PO ×2 (08:31→19:14)
--- NOTE | 2024-09-04 08:54 | W.PN.HOSP.TC ---
Addendum entered and electronically signed by Raz Ledbetter MD 09/04/24 12:34:
Pressure injury stage 1 B/L heel, POA
Pressure injury stage 1 sacrum, POA
Original Note:
Today's Communication/Plan
-
Antibiotics. PCN internalization
Assessment / Plan
Assessment / Plan
Physical exam:
General: Acutely ill. Cachectic
HEENT: Normocephalic, Atraumatic and Moist Mucous Membranes
Respiratory: Some rhonchi bilateral; Negative Wheezes, Rales
Cardiac: Regular Rhythm and S1/S2
GI: Soft, +tender and Nondistended. PCN in place
Musculoskeletal: No Clubbing, No Cyanosis and No Edema
Neuro: Awake, Alert and Oriented, no neurological deficits but generalized weakness.
Psych: Down mood.
A/P:
Left obstructive uropathy:
Left distal ureter 4.5 cm stone
Status post left percutaneous tube placed
Known history of right kidney atrophy
Right kidney mass kidney-->defer to urology further eval
Urology asked interventional radiology for possible exchange to internal stent
Hypotension:
Patient NPO for procedure today probably contributing
Bolus NS
reevaluate
Metastatic prostate cancer:
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
There are liver and bony metastasis
Appreciate oncology consult
Will get palliative care involved-discussed with palliative care today
Sepsis present on admission due to pneumonia (interstitial pneumonitis/interstitial lung disease has been considered but seems less likely):
Continue doxycycline but change to oral
Cont IV ceftriaxone
Given hydrocortisone 200 mg IV x 1 yesterday on 09/02 and started on 50 mg every 8 hours afterwards--> discontinued IV steroids yesterday on 09/03 (agree with pulm recommendations)
Follow-up cultures
White blood cell count 21.9--> 9.6-->13.4 today
Pulmonary consult appreciated
Anemia:
Continue to monitor hemoglobin closely
Hemoglobin 10.4 today
Stable
RADHA on CKD:
Multifactorial etiology
Creatinine 3.9--> 2.4 today
Continue to monitor renal function closely
Appreciated nephrology and urology input
Metabolic acidosis:
Monitor acidosis closely
On bicarb infusion
Hypocalcemia:
Replete and trend
Restart calcium supplementation
Severe protein calorie malnutrition:
Monitor nutrition status
History of ischemic cardiomyopathy:
Continue monitor volume status
COPD:
Monitor respiratory status
Interstitial lung disease:
Monitor respiratory status
CAD:
Restart aspirin
Chest pain-free
Continue cardiac rehab nurse
Depression:
Continue antidepressant
Hyperkalemia:
Resolved
DVT prophylaxis:
Heparin SQ
CODE STATUS:
Full code
Prognosis guarded overall
Total time spent on today's encounter was 52 minutes which included time spent in counseling the patient/family regarding diagnosis and treatment plan as listed above, goals of care, and symptom management. Case was discussed with nursing staff,
specialists, and care coordinators/case management. All labs and imaging personally reviewed by me. Remainder the time spent in detailed review of previous records, lab data, imaging, and other medical provider documentation.
Anticipated Discharge: > 48 hours
Subjective/Interval History
-
Date of Service: September 04, 2024
Patient reports cough/sob but on room air. Afebrile.
Objective Data
-
Labs:
Laboratory Results
09/04/24
03:50
WBC 13.4 H
Hgb 10.4 L
Hct 30.1 L
Plt Count 185 D
Sodium 138
Potassium 4.1
Chloride 112 H
Carbon Dioxide 19 L
BUN 64 H
Creatinine 2.4 H
Glucose 76
Calcium 7.2 L
Vital Signs:
Vital Signs
Temp Pulse Resp BP Pulse Ox
97.4 F 62 12 95/73 99
09/04/24 07:24 09/04/24 04:00 09/04/24 04:00 09/04/24 04:00 09/04/24 02:00
I&O
09/03/24 09/04/24 09/05/24
06:59 06:59 06:59
Intake Total 1939 / 1939
Output Total 340 / 340 550 / 550
Balance 1600 / 1600 1490 / 1490
--- NOTE | 2024-09-04 09:00 | W.PN.NEPH.PH ---
Today's Communication / Plan
-
continue IVF
Assessment/Plan
-
Assessment
RADHA
Left obstructive uropathy stone at [facility]
Left percutaneous nephrostomy
Atrophic right kidney
Metastatic recurrent prostate cancer status post prostatectomy
Metabolic acidosis
Hypocalcemia
Anemia
Nephrolithiasis
Plan
Continue IV fluids, bicarbonate based. BP low, no evidence of volume overload
IV calcium prn
Follow BMP
today attempt to internalize left percutaneous nephrostomy stent
-
-
Date of Service: September 04, 2024
CC / HPI / ROS
-
Chief Complaint:
RADHA
History of Present Illness:
RADHA/Cr down to 2.4
acidosis stable 19
BP low stable
NPO for PCN internalization
Review of Systems:
no CP/SOB
Labs
-
Labs:
WBC 13.4 10^3/uL (4.8-10.8) H 09/04/24 03:50
RBC 2.86 10^6/uL (4.70-6.10) L 09/04/24 03:50
Hgb 10.4 g/dL (13.0-18.0) L 09/04/24 03:50
Hct 30.1 % (39.0-52.0) L 09/04/24 03:50
Plt Count 185 10^3/uL (130-400) D 09/04/24 03:50
Sodium 138 mmol/L (135-145) 09/04/24 03:50
Potassium 4.1 mmol/L (3.5-5.1) 09/04/24 03:50
Chloride 112 mmol/L (98-107) H 09/04/24 03:50
Carbon Dioxide 19 mmol/L (22-30) L 09/04/24 03:50
BUN 64 mg/dl (9-20) H 09/04/24 03:50
Creatinine 2.4 mg/dL (0.7-1.3) H 09/04/24 03:50
eGFR 27.79 09/04/24 03:50
Glucose 76 mg/dl (70-99) 09/04/24 03:50
Calcium 7.2 mg/dl (8.4-10.2) L 09/04/24 03:50
Phosphorus 3.6 mg/dl (2.5-4.5) 09/01/24 10:33
Albumin 1.8 g/dl (3.5-5.0) L 09/03/24 04:53
Physical Exam
-
Vital Signs:
Vital Signs
Temp Pulse Resp BP Pulse Ox
97.4 F 62 12 95/73 99
09/04/24 07:24 09/04/24 04:00 09/04/24 04:00 09/04/24 04:00 09/04/24 02:00
Cardiovascular:: Regular rate and rhythm
Respiratory:: Bilateral: CTA
Lung Excursion:: Normal
Abdomen:: Nontender and Soft
Bowel Sounds:: Normal
Extremity Edema:: None: Bilateral:
[2024-09-04] MEDS: VIBRAMYCIN 100 MG PO ×2 (09:39→19:14)
--- NOTE | 2024-09-04 09:43 | W.PN.ONC2 ---
Today's Communication / Plan
-
.
Impression
Impression
Left obstructive uropathy stone at [facility]
s/p Left percutaneous nephrostomy
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
Bilateral basilar pneumonia
emphysema, smoker, suspected COPD
hypocalcemia
Plan
Plan
on abx
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
on calcium supplement
internalization of stent planned for today
goals remain restorative
palliative care, nephrology, urology, pulmonary following
OP follow up with primary oncologist to consider Pluvicto if performance status permits
No further inpatient medical oncology recommendations. Medical oncology will sign off, please reach out for any further questions or concerns.
Subjective/Objective
Subjective
no new complaints
Vital Signs:
Vital Signs
Temp Pulse Resp BP Pulse Ox
97.4 F 68 15 111/84 95
09/04/24 07:24 09/04/24 08:00 09/04/24 08:00 09/04/24 08:00 09/04/24 08:00
Lab Results:
Laboratory Data
WBC 13.4 10^3/uL (4.8-10.8) H 09/04/24 03:50
Hgb 10.4 g/dL (13.0-18.0) L 09/04/24 03:50
Plt Count 185 10^3/uL (130-400) D 09/04/24 03:50
PT 15.7 Sec (11.4-14.6) H 09/01/24 20:14
INR 1.23 09/01/24 20:14
eGFR 27.79 09/04/24 03:50
[2024-09-04] MEDS: TUMS CHEWABLE TABLET 200 MG PO (10:19)
--- NOTE | 2024-09-04 10:29 | PN.CDI ---
CDI
- -
CDI:
Physician Documentation Request
Admit Date: 09/01/24 14:17
Dear Doctor Khloe,
Patient admitted for sepsis.
Clinical panel nursing documentation wound care
09/01/24
20:30 09/02/24
02:17
Appearance- [Present on admission Bilateral Heel] Blanchable red
Pressure injury appearance (Stage 1) [Present on admission Bilateral Heel] Non blanchable
red
Soft on
palpation (
boggy)
Pressure injury appearance (Stage 1) [Present on admission Sacrum] Non blanchable
red Non blanchable
red
Pressure injury stage [Present on admission Bilateral Heel] Stage 1
Pressure injury stage [Present on admission Sacrum] Stage 1 Stage 1
Physician documentation of the type and location of wounds is required for compliant documentation. Based on the above clinical findings and your assessment, please provide the following in your progress note:
1. Location of the ulcer/wound, including laterality.
2. Type (etiology) of ulcer/wound:
- Diabetic ulcer
- Arterial (ischemic) ulcer
- Traumatic wound
- Venous stasis ulcer
- Pressure (decubitus) ulcer
- Non-healing surgical wound
- Other
- Unable to determine
3. For a non-pressure ulcer, please indicate the depth/severity:
- Limited to the breakdown of skin
- With fat layer exposed
- With necrosis of muscle
- With necrosis of bone
- Other
- Unable to determine
4. If a pressure ulcer, please also include the stage* of the ulcer:
- Stage 1 - Skin intact, non-blanchable redness
- Stage 2 - Partial thickness loss of dermis, includes intact or open blister
- Stage 3 - Full thickness tissue not including bone, tendon or muscle
- Stage 4 - Full thickness tissue loss, including exposed bone, tendon or muscle
- Unstageable - Full thickness loss in which the base of the ulcer is covered by slough (yellow, rangel, luna, green or brown) and/or eschar (rangel, brown or black) in the wound bed.
- Unable to determine
Use of terms such as suspected, likely, concern for, or probable (associated with a specific diagnosis that is being evaluated, monitored, or treated as if it exists) are acceptable and can be coded in the inpatient setting, when documented at the
time of discharge.
Thank you,
Beryl Rutherford RN, BSN
CDI Specialist
Available via [place] text
Please use your independent medical judgment in providing your response.
*Source: National Pressure Ulcer Advisory Panel (NPUAP)
--- NOTE | 2024-09-04 11:10 | W.PN.PUL3 ---
Today's Communication / Plan
-
- Start Spiriva
- Add DuoNeb as needed
Assessment
-
Patient is a very pleasant 73 old gentleman with known history of metastatic prostate cancer with prior history of prostatectomy who presented to the hospital with generalized weakness and failure to thrive. He also had decreased p.o. intake lately
and was quite dehydrated. Reportedly he had mild cough over who presented to the hospital with generalized weakness and failure to thrive. He also had decreased p.o. intake lately and was quite dehydrated. Reportedly he had mild cough over the
days preceding hospitalization. Patient reports a dry cough without fever, chills or hemoptysis. He denied any sore throat, runny nose or any sick contacts. Workup in the emergency room was suggestive of acute renal failure and subsequent workup
was suggestive of progressive metastatic disease with obstructive uropathy. Patient also had a chest x-ray which was suggestive of interstitial pneumonitis versus pneumonia and patient was started on antibiotics. Reportedly has been on prednisone
at home and was started on IV hydrocortisone for stress dose.
Pulmonary consultation was requested for further input regarding interstitial pneumonitis versus ILD versus pneumonia.
#1. Bibasilar pneumonia. Patient's admission x-ray had moderate amount of ground-glass airspace opacities in the right midlung and the both lower lobes. He has been on antibiotic with ceftriaxone and doxycycline. Follow-up imaging on 09/02 shows
improving bibasilar infiltrates with only a trace left-sided effusion which appears to be chronic.
-Recommend treating it as a community-acquired pneumonia, continue ceftriaxone and doxycycline, favor a 5-day course of antibiotics
-MRSA screen negative. Influenza screen negative. COVID-19 negative. Strep and Legionella antigen negative. Sputum culture showing usual respiratory audie
-I reviewed patient's prior CT scans and x-rays, these changes are not suggestive of interstitial lung disease
-Chemotherapy induced pneumonitis in differential however appears to be less likely considering quick improvement with antibiotics. Even though most chemotherapy agents can cause pneumonitis, it is more commonly seen with immunotherapy. Patient is
currently on room air, saturating well and does not have any hypoxia or respiratory symptoms. Would favor continuing patient's prescribed chemotherapy per oncology service.
-Can discontinue IV steroids from pulmonary standpoint. I am unclear why patient had been on prednisone at home, discussed with primary team to evaluate further
-If patient develops hypoxia or respiratory symptoms, recommend CT chest without contrast for further evaluation
#2. Bilateral upper lobe emphysema and history of smoking. Suspect patient has underlying COPD. He does not have much symptoms though and in the past has not been inclined to use any inhalers. Patient reports that he has cut down the amount of
smoking and is currently down to half pack per day
-Start Spiriva daily, patient agrees to trial of inhaler
-DuoNebs as needed
-Depending on patient's goals of care, can pursue pulmonary function testing as outpatient
-Encourage patient to quit smoking
Other medical diagnoses:
-Failure to thrive with metastatic prostate cancer s/p prostatectomy in March 2019
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
-Coronary artery disease, s/p PCI in 2022
-Acute renal failure with obstructive uropathy, new left hydronephrosis s/p percutaneous nephrostomy ()
Total time spent on this consultation/encounter _32___ minutes which includes review of history, physical exam, medications, laboratory data, personal review of imaging, extensive review of outpatient records, discussion with care team and
respiratory therapy.
Data:
CXR 09/02/2024: Improving bibasilar pneumonia, trace left sided effusion
CXR 08/31/2024: 1. Moderate amount of ground-glass airspace opacity in the peripheral right midlung and in both lower lobes. Diagnostic possibilities are (1) bilateral pneumonia or (2) an inflammatory pneumonitis.
2. Small left pleural effusion.
3. Mildly decreased bilateral lung volumes.
4. EXTENSIVE MULTIFOCAL BLASTIC OSSEOUS METASTATIC DISEASE.
5. Right IJ chemotherapy Mediport in place.
CT Abd/Pelvis 08/2024: 1. Extensive adjacent urinary calculi within the distal left ureter extending over the distal approximately 4.5 cm of the left ureter extending to the left ureterovesical junction, with associated moderate left
hydroureteronephrosis, new from 08/20/2024.Probable cystitis.
2. Extensive hepatic metastasis
3. Small bilateral pleural effusions. Scattered mild atelectasis and/or pneumonia within the bilateral lower lung zones.
4. Additional chronic incidental findings as described.
PET-CT 07/2024: Progressive disease.
PSMA uptake in multiple prior existing osseous lesions has increased, and a few new lesions are demonstrated.
Progressive hepatic metastatic disease.
No radiopharmaceutical PSMA uptake in the prostate bed or lymph nodes.
CT 09/2022: Bilateral upper lobe emphysema changes
Cardiac Cath 2022: EF 54%, infero-lateral hypokinetic wall, Mild CAD unchanged from 2022
ECHO 08/2022: LVEF 40-45%. Infero-lateral segment hypokinesis. RV Normal. Estimated Pulmonary Artery Pressure 20-25 mm
Cardiac Cath 08/2022: PCI of Dominant Left Cx with TANYA for 100% Occlusion. Elevated filling pressures .
Subjective Data
-
Date of Service:
Date of Service: September 04, 2024
Subjective:
Patient comfortably sitting in chair, no acute distress. Reports mild cough, nonproductive.
Review of Systems
Genitourinary: Other (No new symptoms reported.)
Objective Data
Data Reviewed
Vital Signs / I&O / Oxygen:
Vital Signs
Temp Pulse Resp BP Pulse Ox
97.4 F 88 17 85/66 96
09/04/24 07:24 09/04/24 10:00 09/04/24 10:00 09/04/24 10:00 09/04/24 09:34
Intake and Output
09/03/24 09/04/24 09/05/24
06:59 06:59 06:59
Intake Total 1939 / 1939
Output Total 340 / 340 550 / 550
Balance 1600 / 1600 1490 / 1490
SaO2 96
Nasal Cannula flow liters per 2
minute
Physical Exam
General: Comfortable
HEENT: Normocephalic
Cardiovascular: S1-S2
Respiratory: Clear and Non-Labored Respirations
GI: Soft and Non Distended
Neurology: Awake and Alert
Skin: Warm
Labs/Micro/Reports
Lab Data
09/04/24 03:50
09/04/24 03:50
Microbiology
09/01/24 17:18 Urine Urine Culture - Final
NO GROWTH
09/02/24 01:34 Sputum Respiratory Culture - Final
Usual Respiratory Audie
09/02/24 01:34 Sputum Gram Stain - Final
09/01/24 13:32 Blood/Venous Blood Culture - Preliminary
No Growth in 48 hours- Final report to follow
09/02/24 09:01 Urine Streptococcus pneumoniae Antigen (M - Final
Negative for Streptococcus pneumoniae antigen.
A negative result does not exclude infection with
Streptococcus pneumoniae. Clinical correlation is
recommended.
09/02/24 08:59 Nasal Swab Influenza Types A & B (EBONI) - Final
Negative for Influenza A & B, NAAT
Negative results must be combined with clinical observations
and patient history.
Nucleic Acid Amplification test (NAAT)performed on the
[employer] platform.
09/01/24 17:18 Urine Legionella Urinary Antigen - Final
Negative for Legionella pneumophila Serogroup 1 antigen.
A negative result does not rule out the possiblity of
Legionella infection due to other serogroups or species of
Legionella. Clinical correlation is recommended.
[2024-09-04] MEDS: NSS 500 IV (11:45)
--- NOTE | 2024-09-04 11:50 | PTCARENOTE ---
Dr. Ledbetter made aware that when patient ambulated from the chair to the bed, his BP was 67/59 with MAP of 64 and HR 104. Patient stated that he 'felt very dizzy'. BP reran after a few minutes and BP 91/61 with MAP of 72. Patient felt that he 'still
felt dizzy'. Bolus ordered and started. Care ongoing.
[2024-09-04] MEDS: SPIRIVA RESPIMAT 2.5 MCG 2 PUFF INH (11:53)
[2024-09-04] MEDS: STERILE WATER FOR INJECTION 10 ML IV (15:53)
[2024-09-04] MEDS: ROCEPHIN 1000 MG IV (15:53)
--- NOTE | 2024-09-04 16:06 | PTCARENOTE ---
Patient arrived back to IMU from IR. Patient slid from stretcher to bed. VSS. Care ongoing.
--- NOTE | 2024-09-04 16:06 | PTCARENOTE ---
Patient AOx3. Patient on RA. Most, occasional, non-productive cough. NSR on monitor. BP soft. Poor appetite. Patient c/o gas pains. Tums ordered and given to patient per JUL. L side PCNU draining yellow urine. Incontinent BM during shift. IVF
running per order. Call bailey within reach, bed in lowest position.
--- NOTE | 2024-09-04 16:47 | W.PN.URO.CBU ---
Today's Communication / Plan
-
will see if pt tolererates tube now in bladder
Assessment / Plan
-
new left obstructive uropathy in chronically ill male with mets from acp New left hydro with emile due to 4.5 cm of stones distal ureter Left perc tube placed and today converted to nephroureteral stent
Diagnosis
-
Date of Service: September 04, 2024
-
Patient Diagnosis:
Post Op Day:
Patient Diagnosis:
Post Op Day:
Patient Diagnosis:
Post Op Day:
Patient Diagnosis:metastatic acp with new onset left hydro due to distal stones left ureter and atrophic rt kidney Pt s/p rpp and xrt and chemo , but progressive osseous and liver mets no obvious tierra disease Now hydro vomiting creatinine
1.4 to 3.9 and potassium 6.0
Post Op Day: 1 s/p left perc tube at [facility]
Subjective
-
glad no longer on external drainage
Objective
-
Vital Signs
Temp Pulse Resp BP Pulse Ox
97.7 F 76 18 99/76 98
09/04/24 13:47 09/04/24 15:18 09/04/24 15:18 09/04/24 15:18 09/04/24 15:05
Intake and Output
09/03/24 09/04/24 09/05/24
06:59 06:59 06:59
Intake Total 1940 / 1940 2040 / 2040 2180 / 2180
Output Total 340 / 340 550 / 550
Balance 1600 / 1600 1490 / 1490 218 / 2180
Intake:
Oral fluids 480 / 480 480 / 480 480 / 480
IV fluids (Total) 1200 / 1200 1200 / 1200 1700 / 1700
IV piggybacks 260 / 260 360 / 360
Output:
Urinary Drain Output (Total) 340 / 340 550 / 550
Left Nephrostomy 340 / 340 550 / 550
Other:
Number of approximated MODERATE 1
amounts of urine
Number of approximated LARGE 1
amounts of urine
How many times incontinent 1
MODERATE amount urine
How many times incontinent 2
SATURATED amount urine
Laboratory Results
09/04/24 03:50
09/04/24 03:50
Review of Systems
-
: Flank Pain
Physical Exam
-
General - well developed, well nourished, no acute distress
Chest - clear bilaterally
Abdomen - soft, non-tender, positive bowel sounds, no CVAT, no incisional pain or distention
Genitalia - normal
Rectal - normal
Skin - warm & dry with no rash
Neuro - AOx3, no motor deficits
Extremities - no clubbing, no cyanosis, no edema
Incision - clean, dry
Dressing - clean, dry, intact
Counseling
-
expect frequency urgency blood in urine
Care Review
Data Reviewed
Discussed with: Nursing
CT Scan: Image Pers Reviewed
[2024-09-04] MEDS: CELEXA 10 MG PO (17:01)
[2024-09-04] MEDS: NICODERM TRANSDERMAL 14 MG TRANSDERM (17:26)
[2024-09-05] VITALS (13 sets, daily range): BP systolic 88–112; BP diastolic 64–77; PULSE 87; O2SAT 96; BMI 21.6
[2024-09-05] MEDS: ATIVAN 0.5 MG PO (02:35)
--- NOTE | 2024-09-05 02:37 | PTCARENOTE ---
Pt c/o persistent anxiety, PRN medication given per JUL.
[2024-09-05 04:27] LABS: Hematocrit 30.6 % (39.0-52.0); Hemoglobin 10.8 g/dL (13.0-18.0); Mean Corp Hgb Conc. 35.3 g/dL (33.0-37.0); Mean Corpuscular Hgb 36.7 pg (27.0-31.0); Mean Corpuscular Volume 104.1 fL (80.0-94.0); Mean Platelet Volume 10.9 fL (7.4-10.4); Platelet Count 167 10^3/uL (130-400); Red Blood Cell Count 2.94 10^6/uL (4.70-6.10); Red Cell Dist. Width 15.9 % (11.5-14.5); White Blood Cell Count 12.8 10^3/uL (4.8-10.8)
[2024-09-05 04:52] LABS: Blood Urea Nitrogen 66 mg/dl (9-20); Carbon Dioxide 26 mmol/L (22-30); Chloride 107 mmol/L (98-107); Estimated Creatinine Clearance 28 ml/min; Glucose 76 mg/dl (70-99); Potassium 4.2 mmol/L (3.5-5.1); Sodium 135 mmol/L (135-145); eGFR 32.62
[2024-09-05] MEDS: SODIUM BICARBONATE 1150 MEQ IV (06:06)
[2024-09-05] MEDS: SPIRIVA RESPIMAT 2.5 MCG 2 PUFF INH (07:15)
[2024-09-05] MEDS: NICODERM TRANSDERMAL 14 MG TRANSDERM (08:25)
[2024-09-05] MEDS: OSCAL 500 + D 500 MG PO ×2 (08:25→19:29)
[2024-09-05] MEDS: ASPIR LOW (ENTERIC COATED) 81 MG PO (08:25)
[2024-09-05] MEDS: DELTASONE 5 MG PO ×2 (08:25→19:30)
[2024-09-05] MEDS: B COMPLEX w/VITAMIN C 1 CAPLET PO (08:25)
[2024-09-05] MEDS: VIBRAMYCIN 100 MG PO ×2 (08:25→19:30)
--- NOTE | 2024-09-05 08:25 | PTCARENOTE ---
Patient received from shift supervisor. Patient resting comfortably in bed. AAO, VSS. No events noted overnight. No complaints of pain at this time. Currently on Room Air, occasionally needs 2L HS. IVF through right subq port. No testing ordered
at this time. Call bailey in reach.
[2024-09-05] MEDS: COMPAZINE 5 MG IV (08:37)
[2024-09-05] MEDS: HEPARIN 5000 UNITS SC ×3 (08:41→22:41)
--- NOTE | 2024-09-05 08:45 | W.PN.HOSP.TC ---
Today's Communication/Plan
-
IV fluids. IV antibiotics.
Assessment / Plan
Assessment / Plan
Physical exam:
General: Acutely ill. Cachectic
HEENT: Normocephalic, Atraumatic and Moist Mucous Membranes
Respiratory: Some rhonchi bilateral; Negative Wheezes, Rales
Cardiac: Regular Rhythm and S1/S2
GI: Soft, +tender and Nondistended. PCN in place
Musculoskeletal: No Clubbing, No Cyanosis and No Edema
Neuro: Awake, Alert and Oriented, no neurological deficits but generalized weakness.
Psych: Down mood.
A/P:
Sepsis present on admission due to pneumonia (interstitial pneumonitis/interstitial lung disease has been considered but seems less likely):
Improving
Continue oral doxycycline
Cont IV ceftriaxone
Given hydrocortisone 200 mg IV x 1 on 09/02 and started on 50 mg every 8 hours afterwards--> discontinued IV steroids on 09/03 and back on home doses of oral prednisone (agree with pulm recommendations)
Follow-up cultures
White blood cell count 21.9--> 9.6--> 12.8 today
Pulmonary consult appreciated
PT OT eval
automotive center manager for discharge disposition
RADHA on CKD:
Multifactorial etiology
Creatinine 3.9--> 2.1 today
Continue to monitor renal function closely
Appreciated nephrology and urology input
Metabolic acidosis:
Monitor acidosis closely
Off bicarb infusion and now on normal saline per nephrology
Left obstructive uropathy:
Left distal ureter 4.5 cm stone
Status post left percutaneous tube placed
Known history of right kidney atrophy
Right kidney mass kidney-->defer to urology further eval
Urology asked interventional radiology for exchange to internal stent
Metastatic prostate cancer:
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
There are liver and bony metastasis
Appreciate oncology consult
Palliative care consult appreciated
Hypotension:
On IV fluid
Improved
Anemia:
Continue to monitor hemoglobin closely
Hemoglobin 10.8 today
Stable
Hypocalcemia:
Replete and trend
Restart calcium supplementation
Severe protein calorie malnutrition:
Monitor nutrition status
Dietary consult
History of ischemic cardiomyopathy:
Continue monitor volume status
COPD:
Monitor respiratory status
Interstitial lung disease:
Monitor respiratory status
CAD:
Restart aspirin
Chest pain-free
Continue awake overnight monitor
Depression:
Continue antidepressant
Hyperkalemia:
Resolved
DVT prophylaxis:
Heparin SQ
CODE STATUS:
Full code
Prognosis guarded overall
Total time spent on today's encounter was 52 minutes which included time spent in counseling the patient/family regarding diagnosis and treatment plan as listed above, goals of care, and symptom management. Case was discussed with nursing staff,
specialists, and care coordinators/case management. All labs and imaging personally reviewed by me. Remainder the time spent in detailed review of previous records, lab data, imaging, and other medical provider documentation.
Anticipated Discharge: 24 - 48 hours
Subjective/Interval History
-
Date of Service: September 05, 2024
Patient not in good mood overall and wants to go home but explained rational he needs to be in the hospital. Afebrile
Objective Data
-
Labs:
Laboratory Results
09/05/24
04:19
WBC 12.8 H
Hgb 10.8 L
Hct 30.6 L
Plt Count 167
Sodium 135
Potassium 4.2
Chloride 107
Carbon Dioxide 26
BUN 66 H
Creatinine 2.1 H
Glucose 76
Calcium 7.0 L
Vital Signs:
Vital Signs
Temp Pulse Resp BP Pulse Ox
97.3 F 83 16 91/67 95
09/05/24 07:43 09/05/24 07:18 09/05/24 07:18 09/05/24 06:00 09/05/24 07:18
I&O
09/04/24 09/05/24 09/06/24
06:59 06:59 06:59
Intake Total 0 / 0 3620 / 3620
Output Total 550 / 550 300 / 300
Balance 1490 / 1490 3320 / 3320
--- NOTE | 2024-09-05 10:40 | W.PN.PUL3 ---
Today's Communication / Plan
-
-Recommend total 5 days of antibiotic
-Continue Spiriva and as needed albuterol after discharge
-Recommend outpatient follow-up with pulmonary clinic, information left in the discharge folder
-Pulmonary team will sign off, please call as needed
Assessment
-
Patient is a very pleasant 73 old gentleman with known history of metastatic prostate cancer with prior history of prostatectomy who presented to the hospital with generalized weakness and failure to thrive. He also had decreased p.o. intake lately
and was quite dehydrated. Reportedly he had mild cough over who presented to the hospital with generalized weakness and failure to thrive. He also had decreased p.o. intake lately and was quite dehydrated. Reportedly he had mild cough over the
days preceding hospitalization. Patient reports a dry cough without fever, chills or hemoptysis. He denied any sore throat, runny nose or any sick contacts. Workup in the emergency room was suggestive of acute renal failure and subsequent workup
was suggestive of progressive metastatic disease with obstructive uropathy. Patient also had a chest x-ray which was suggestive of interstitial pneumonitis versus pneumonia and patient was started on antibiotics. Reportedly has been on prednisone
at home and was started on IV hydrocortisone for stress dose.
Pulmonary consultation was requested for further input regarding interstitial pneumonitis versus ILD versus pneumonia.
#1. Bibasilar pneumonia. Patient's admission x-ray had moderate amount of ground-glass airspace opacities in the right midlung and the both lower lobes. He has been on antibiotic with ceftriaxone and doxycycline. Follow-up imaging on 09/02 shows
improving bibasilar infiltrates with only a trace left-sided effusion which appears to be chronic.
-Recommend treating it as a community-acquired pneumonia, continue ceftriaxone and doxycycline, favor a 5-day course of antibiotics
-MRSA screen negative. Influenza screen negative. COVID-19 negative. Strep and Legionella antigen negative. Sputum culture showing usual respiratory audie
-I reviewed patient's prior CT scans and x-rays, these changes are not suggestive of interstitial lung disease
-Chemotherapy induced pneumonitis in differential however appears to be less likely considering quick improvement with antibiotics. Even though most chemotherapy agents can cause pneumonitis, it is more commonly seen with immunotherapy. Patient is
currently on room air, saturating well and does not have any hypoxia or respiratory symptoms. Would favor continuing patient's prescribed chemotherapy per oncology service.
-Can discontinue IV steroids from pulmonary standpoint. I am unclear why patient had been on prednisone at home, discussed with primary team to evaluate further
-If patient develops hypoxia or respiratory symptoms, recommend CT chest without contrast for further evaluation
#2. Bilateral upper lobe emphysema and history of smoking. Suspect patient has underlying COPD. He does not have much symptoms though and in the past has not been inclined to use any inhalers. Patient reports that he has cut down the amount of
smoking and is currently down to half pack per day
-Continue Spiriva daily
-DuoNebs as needed
-Depending on patient's goals of care, can pursue pulmonary function testing as outpatient
-Encourage patient to quit smoking
Other medical diagnoses:
-Failure to thrive with metastatic prostate cancer s/p prostatectomy in March 2019
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
-Coronary artery disease, s/p PCI in 2022
-Acute renal failure with obstructive uropathy, new left hydronephrosis s/p percutaneous nephrostomy ()
Total time spent on this consultation/encounter _31___ minutes which includes review of history, physical exam, medications, laboratory data, personal review of imaging, extensive review of outpatient records, discussion with care team and
respiratory therapy.
Data:
CXR 09/02/2024: Improving bibasilar pneumonia, trace left sided effusion
CXR 08/31/2024: 1. Moderate amount of ground-glass airspace opacity in the peripheral right midlung and in both lower lobes. Diagnostic possibilities are (1) bilateral pneumonia or (2) an inflammatory pneumonitis.
2. Small left pleural effusion.
3. Mildly decreased bilateral lung volumes.
4. EXTENSIVE MULTIFOCAL BLASTIC OSSEOUS METASTATIC DISEASE.
5. Right IJ chemotherapy Mediport in place.
CT Abd/Pelvis 08/2024: 1. Extensive adjacent urinary calculi within the distal left ureter extending over the distal approximately 4.5 cm of the left ureter extending to the left ureterovesical junction, with associated moderate left
hydroureteronephrosis, new from 08/20/2024.Probable cystitis.
2. Extensive hepatic metastasis
3. Small bilateral pleural effusions. Scattered mild atelectasis and/or pneumonia within the bilateral lower lung zones.
4. Additional chronic incidental findings as described.
PET-CT 07/2024: Progressive disease.
PSMA uptake in multiple prior existing osseous lesions has increased, and a few new lesions are demonstrated.
Progressive hepatic metastatic disease.
No radiopharmaceutical PSMA uptake in the prostate bed or lymph nodes.
CT 09/2022: Bilateral upper lobe emphysema changes
Cardiac Cath 2022: EF 54%, infero-lateral hypokinetic wall, Mild CAD unchanged from 2022
ECHO 08/2022: LVEF 40-45%. Infero-lateral segment hypokinesis. RV Normal. Estimated Pulmonary Artery Pressure 20-25 mm
Cardiac Cath 08/2022: PCI of Dominant Left Cx with TANYA for 100% Occlusion. Elevated filling pressures .
Subjective Data
-
Date of Service:
Date of Service: September 05, 2024
Subjective:
Patient comfortably lying in bed, on room air, no acute distress. Denies any cough or expectoration.
Review of Systems
Genitourinary: Other (No new respiratory symptoms reported.)
Objective Data
Data Reviewed
Vital Signs / I&O / Oxygen:
Vital Signs
Temp Pulse Resp BP Pulse Ox
97.3 F 83 16 91/67 95
09/05/24 07:43 09/05/24 07:18 09/05/24 07:18 09/05/24 06:00 09/05/24 07:18
Intake and Output
09/04/24 09/05/24 09/06/24
06:59 06:59 06:59
Intake Total 2040 / 2040 3620 / 3620
Output Total 550 / 550 300 / 300
Balance 1490 / 1490 3320 / 3320
SaO2 95
Nasal Cannula flow liters per 2
minute
Physical Exam
General: Comfortable
HEENT: Normocephalic
Cardiovascular: S1-S2
Respiratory: Clear and Non-Labored Respirations
GI: Soft and Non Distended
Neurology: Awake and Alert
Skin: Warm
Labs/Micro/Reports
Lab Data
09/05/24 04:19
09/05/24 04:19
Microbiology
09/01/24 13:32 Blood/Venous Blood Culture - Preliminary
No Growth in 72 hours- Final report to follow
09/01/24 17:18 Urine Urine Culture - Final
NO GROWTH
09/02/24 01:34 Sputum Respiratory Culture - Final
Usual Respiratory Audie
09/02/24 01:34 Sputum Gram Stain - Final
09/02/24 09:01 Urine Streptococcus pneumoniae Antigen (M - Final
Negative for Streptococcus pneumoniae antigen.
A negative result does not exclude infection with
Streptococcus pneumoniae. Clinical correlation is
recommended.
09/02/24 08:59 Nasal Swab Influenza Types A & B (EBONI) - Final
Negative for Influenza A & B, NAAT
Negative results must be combined with clinical observations
and patient history.
Nucleic Acid Amplification test (NAAT)performed on the
[employer] platform.
09/01/24 17:18 Urine Legionella Urinary Antigen - Final
Negative for Legionella pneumophila Serogroup 1 antigen.
A negative result does not rule out the possiblity of
Legionella infection due to other serogroups or species of
Legionella. Clinical correlation is recommended.
--- NOTE | 2024-09-05 11:10 | W.PN.NEPH.PH ---
Today's Communication / Plan
-
wean IVF, changed to NS
Assessment/Plan
-
Assessment
RADHA
Left obstructive uropathy stone at [facility]
Left percutaneous nephrostomy
Atrophic right kidney
Metastatic recurrent prostate cancer status post prostatectomy
Metabolic acidosis
Hypocalcemia
Anemia
Nephrolithiasis
Plan
cr improving slowly to 2.1
UOP not measured s/p internalization of nephrostomy stent
wean IVF as met acidosis resolved,changed to NS
BP low, no evidence of volume overload
IV calcium, check I nils in am
Follow BMP
encourage po intake
d/w pt and
-
-
Date of Service: September 05, 2024
CC / HPI / ROS
-
Chief Complaint:
RADHA
History of Present Illness:
RADHA/Cr down to 2.1
acidosis resolved bicarb at 26
BP low stable
poor po intake
nils 7
Review of Systems:
no CP/SOB
no n/v
Labs
-
Labs:
WBC 12.8 10^3/uL (4.8-10.8) H 09/05/24 04:19
RBC 2.94 10^6/uL (4.70-6.10) L 09/05/24 04:19
Hgb 10.8 g/dL (13.0-18.0) L 09/05/24 04:19
Hct 30.6 % (39.0-52.0) L 09/05/24 04:19
Plt Count 167 10^3/uL (130-400) 09/05/24 04:19
Sodium 135 mmol/L (135-145) 09/05/24 04:19
Potassium 4.2 mmol/L (3.5-5.1) 09/05/24 04:19
Chloride 107 mmol/L (98-107) 09/05/24 04:19
Carbon Dioxide 26 mmol/L (22-30) 09/05/24 04:19
BUN 66 mg/dl (9-20) H 09/05/24 04:19
Creatinine 2.1 mg/dL (0.7-1.3) H 09/05/24 04:19
eGFR 32.62 09/05/24 04:19
Glucose 76 mg/dl (70-99) 09/05/24 04:19
Calcium 7.0 mg/dl (8.4-10.2) L 09/05/24 04:19
Phosphorus 3.6 mg/dl (2.5-4.5) 09/01/24 10:33
Albumin 1.8 g/dl (3.5-5.0) L 09/03/24 04:53
Physical Exam
-
Vital Signs:
Vital Signs
Temp Pulse Resp BP Pulse Ox
97.3 F 83 16 91/67 95
09/05/24 07:43 09/05/24 07:18 09/05/24 07:18 09/05/24 06:00 09/05/24 07:18
Cardiovascular:: Regular rate and rhythm
Respiratory:: Bilateral: CTA
Lung Excursion:: Normal
Abdomen:: Nontender and Soft
Bowel Sounds:: Normal
Extremity Edema:: None: Bilateral:
Chaves Catheter: No
--- NOTE | 2024-09-05 12:20 | CM ---
Patient with Hx metastatic prostate CA with Dx Left obstructive uropathy/stone s/p left percutaneous tube, sepsis, pneumonia. Room air. Receiving IVF, IV Abx. PT Eval 09/04; unable to ambulate due to low endurance.
Met with patient and Marilin; discussed patient's functional status as per PT. would like him to go to SNF for rehab however is aware that patient wants to go home, and patient expressed his desire to go home, so wants to see how he
does on next therapy session. works out of the house in the morning, and brother in law who lives with them works outside the house all day. says patient had a bad experience at [facility] (now [facility]). Provided SNF
list and discussed [facility], [facility] and [facility]. Offered Caregiver list, discussed cost of caregivers and suggested they consider hiring caregiver a few hrs/day while at work - prefers to rearrange her work schedule as
needed.
also says patient had a bad experience with [facility] nurse not keeping scheduled appointment times and not helping with catheter care. Offered that if patient goes home with HH they consider another agency.
saying patient has been on a low potassium diet which is restrictive and he is not eating well. She was told his diet could be liberalized and she asked for help with this - informed her would send her request to hospitalist.
Message to Dr Khloe nino; info above. Requested OT Eval. May be helpful if tailor women's garment alteration sees patient.
Plan follow patient's mobility and discuss SNF vs HH with patient/ again.
[2024-09-05] MEDS: NSS 1000 IV (12:59)
[2024-09-05] MEDS: CALCIUM GLUCONATE 100 IV (12:59)
[2024-09-05] MEDS: ROCEPHIN 1000 MG IV (15:42)
[2024-09-05] MEDS: STERILE WATER FOR INJECTION 10 ML IV (15:42)
[2024-09-05] MEDS: DUONEB 3 ML INH (17:11)
[2024-09-05] MEDS: CELEXA 10 MG PO (17:32)
[2024-09-05] MEDS: TUMS CHEWABLE TABLET 200 MG PO (18:50)
--- NOTE | 2024-09-05 19:24 | PTCARENOTE ---
Patient with continued low BP's. Night DOCUMENTATION COORDINATOR consulted and added Midodrine Q6PRN for SBP <90. OK to continue with tele transfer to [facility].
--- NOTE | 2024-09-05 20:23 | PTCARENOTE ---
Report called to Heidi Martins RN.
--- NOTE | 2024-09-05 21:25 | W.PN.URO.CBU ---
Today's Communication / Plan
-
bladder irritation
Assessment / Plan
-
new left obstructive uropathy in chronically ill male with mets from acp New left hydro with emile due to 4.5 cm of stones distal ureter Left perc tube placed and converted to nephroureteral stent
Diagnosis
-
Date of Service: September 05, 2024
-
Patient Diagnosis:
Post Op Day:
Patient Diagnosis:
Post Op Day:
Patient Diagnosis:
Post Op Day:
Patient Diagnosis:
Post Op Day:
Patient Diagnosis:metastatic acp with new onset left hydro due to distal stones left ureter and atrophic rt kidney Pt s/p rpp and xrt and chemo , but progressive osseous and liver mets no obvious tierra disease Now hydro vomiting creatinine
1.4 to 3.9 and potassium 6.0
Post Op Day: 1 s/p left perc tube at [facility]
Subjective
-
s/p nephrourteral stent
Objective
-
Vital Signs
Temp Pulse Resp BP Pulse Ox
97.3 F 90 14 93/67 90
09/05/24 20:29 09/05/24 20:00 09/05/24 20:00 09/05/24 18:55 09/05/24 20:00
Intake and Output
09/04/24 09/05/24 09/06/24
06:59 06:59 06:59
Intake Total 2040 / 2040 3620 / 3620 700 / 700
Output Total 550 / 550 300 / 300 400 / 400
Balance 1490 / 1490 3320 / 3320 300 / 300
Intake:
Oral fluids 480 / 480 720 / 720
IV fluids (Total) 1200 / 1200 2900 / 2900 700 / 700
IV piggybacks 360 / 360
Output:
Urinary Drain Output (Total) 550 / 550 300 / 300 400 / 400
Left Nephrostomy 550 / 550 300 / 300 400 / 400
Urine, Voided 0 / 0
Other:
Number of approximated SMALL 1 1
amounts of urine
Number of approximated MODERATE 1
amounts of urine
Number of approximated LARGE 1
amounts of urine
How many times incontinent 2
SATURATED amount urine
Laboratory Results
09/05/24 04:19
09/05/24 04:19
Review of Systems
-
: Frequency, Urgency and Bleeding
Physical Exam
-
General - well developed, well nourished, no acute distress
Chest - clear bilaterally
Abdomen - soft, non-tender, positive bowel sounds, no CVAT, no incisional pain or distention
Genitalia - normal
Rectal - normal
Skin - warm & dry with no rash
Neuro - AOx3, no motor deficits
Extremities - no clubbing, no cyanosis, no edema
Incision - clean, dry
Dressing - clean, dry, intact
Counseling
-
no chnages
--- NOTE | 2024-09-05 22:00 | PTCARENOTE ---
Patient arrived from IMU via stretcher. IV fluids running at 100 ml/hr. VSS. Patient complaining of 7/10 abdominal pain. Provider notified. PRN tylenol and one time oxy administered for pain management. Left nephrostomy draining red tinged and
yellow output, dressing CDI. Penile edema noted upon assessment. OOB x 1-2 with rolling walker. Patient oriented to the room. All patient needs met. Bed in lowest position. Call bailey and personal belongings within reach.
[2024-09-05] MEDS: TYLENOL 650 MG PO (22:38)
[2024-09-05] MEDS: ROXICODONE 2.5 MG PO (22:51)
[2024-09-06] VITALS (7 sets, daily range): BP systolic 101–118; BP diastolic 53–80
[2024-09-06] MEDS: DELTASONE 5 MG PO ×2 (07:51→20:15)
[2024-09-06] MEDS: HEPARIN 5000 UNITS SC ×2 (07:51→17:51)
[2024-09-06] MEDS: OSCAL 500 + D 500 MG PO ×2 (07:51→20:15)
[2024-09-06] MEDS: ASPIR LOW (ENTERIC COATED) 81 MG PO (07:51)
[2024-09-06] MEDS: B COMPLEX w/VITAMIN C 1 CAPLET PO (07:51)
[2024-09-06] MEDS: VIBRAMYCIN 100 MG PO ×2 (07:51→20:15)
[2024-09-06] MEDS: NICODERM TRANSDERMAL 14 MG TRANSDERM (07:52)
[2024-09-06] MEDS: SPIRIVA RESPIMAT 2.5 MCG 2 PUFF INH (08:00)
--- NOTE | 2024-09-06 08:52 | W.PN.HOSP.TC ---
Today's Communication/Plan
-
Antibiotics. Monitor renal function
Assessment / Plan
Assessment / Plan
Physical exam:
General: Acutely ill. Cachectic
HEENT: Normocephalic, Atraumatic and Moist Mucous Membranes
Respiratory: Some rhonchi bilateral; Negative Wheezes, Rales
Cardiac: Regular Rhythm and S1/S2
GI: Soft, +tender and Nondistended. PCN in place
Musculoskeletal: No Clubbing, No Cyanosis and No Edema
Neuro: Awake, Alert and Oriented, no neurological deficits but generalized weakness.
Psych: Down mood.
A/P:
Sepsis present on admission due to pneumonia (interstitial pneumonitis/interstitial lung disease has been considered but seems less likely):
Improving
Continue oral doxycycline
Cont IV ceftriaxone
Given hydrocortisone 200 mg IV x 1 on 09/02 and started on 50 mg every 8 hours afterwards--> discontinued IV steroids on 09/03 and back on home doses of oral prednisone (agree with pulm recommendations)
Follow-up cultures
White blood cell count 21.9--> 9.6; then it went up to 15.5 likely due to steroids
Pulmonary consult appreciated
PT OT eval and recommending skilled rehab but patient and want to go home.
Discharge planning once cleared by nephrology as below
manager inventory management for discharge disposition
Discussed with over the phone today
RADHA on CKD:
Multifactorial etiology
Creatinine 3.9--> 2 today
Continue to monitor renal function closely
Appreciated nephrology and urology input
Discharge planning once cleared by nephrology
Metabolic acidosis:
Monitor acidosis closely
Off bicarb infusion and now on normal saline per nephrology
Left obstructive uropathy:
Left distal ureter 4.5 cm stone
Status post left percutaneous tube placed
Known history of right kidney atrophy
Right kidney mass kidney-->defer to urology further eval
Urology asked interventional radiology for exchange to internal stent
Metastatic prostate cancer:
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
There are liver and bony metastasis
Appreciate oncology consult
Palliative care consult appreciated
Hypotension:
On IV fluid
Improved
Anemia:
Continue to monitor hemoglobin closely
Hemoglobin 11.2 today
Stable
Hypocalcemia:
Replete and trend
Restart calcium supplementation
Severe protein calorie malnutrition:
Monitor nutrition status
Dietary consult
History of ischemic cardiomyopathy:
Continue monitor volume status
COPD:
Monitor respiratory status
Interstitial lung disease:
Monitor respiratory status
CAD:
Restart aspirin
Chest pain-free
Continue soft boarder
Depression:
Continue antidepressant
Hyperkalemia:
Resolved
DVT prophylaxis:
Heparin SQ
CODE STATUS:
Full code
Prognosis guarded overall
Anticipated Discharge: Within 24 hours
Subjective/Interval History
-
Date of Service: September 06, 2024
Denies chest pain or shortness of breath today. Afebrile
Objective Data
-
Labs:
Laboratory Results
09/06/24
06:00
WBC Pending
Hgb Pending
Hct Pending
Plt Count Pending
Sodium Pending
Potassium Pending
Chloride Pending
Carbon Dioxide Pending
BUN Pending
Creatinine Pending
Glucose Pending
Calcium Pending
Vital Signs:
Vital Signs
Temp Pulse Resp BP Pulse Ox
97.7 F 77 18 101/65 95
09/06/24 07:30 09/06/24 08:17 09/06/24 08:17 09/06/24 07:30 09/06/24 08:17
I&O
09/05/24 09/06/24 09/07/24
06:59 06:59 06:59
Intake Total 3620 / 3620 700 / 700
Output Total 300 / 300 400 / 400
Balance 3320 / 3320 300 / 300
[2024-09-06 09:25] LABS: % Basophils 0.1 % (0-2); % Eosinophils 0.1 % (0-6); % Immature Granulocytes 0.5 % (0-0.5); % Lymphocytes 3.2 % (20.5-51.1); % Monocytes 4.1 % (1.7-9.3); Absolute Immature Granulocytes 0.1 10^3/uL (0-0.05); Absolute Lymphocytes 0.5 10^3/uL (1.2-3.4); Absolute Monocytes 0.6 10^3/uL (0.1-0.6); Absolute Neutrophils 14.3 10^3/uL (1.4-6.5); Hematocrit 31.5 % (39.0-52.0); Hemoglobin 11.2 g/dL (13.0-18.0); Mean Corp Hgb Conc. 35.6 g/dL (33.0-37.0); Mean Corpuscular Hgb 36.6 pg (27.0-31.0); Mean Corpuscular Volume 102.9 fL (80.0-94.0); Mean Platelet Volume 11.7 fL (7.4-10.4); Nucleated Red Blood Cells % 0 % (-); Platelet Count 178 10^3/uL (130-400); Red Blood Cell Count 3.06 10^6/uL (4.70-6.10); Red Cell Dist. Width 15.9 % (11.5-14.5); White Blood Cell Count 15.5 10^3/uL (4.8-10.8)
[2024-09-06 09:27] LABS: Ionized Calcium 1.04 mMOL/L (1.15-1.33)
[2024-09-06 09:43] LABS: Blood Urea Nitrogen 67 mg/dl (9-20); Calcium 7.5 mg/dl (8.4-10.2); Carbon Dioxide 26 mmol/L (22-30); Chloride 107 mmol/L (98-107); Estimated Creatinine Clearance 31 ml/min; Glucose 108 mg/dl (70-99); Sodium 135 mmol/L (135-145); eGFR 34.59
--- NOTE | 2024-09-06 09:48 | CM ---
environmental programs manager reviewed patient's chart, including previous rn case management notes and will follow up with patient and spouse regarding physical therapy recommendations. Physical therapy are still recommending skilled placement, patient wants to return
to home, will review final plan with patient and spouse.
Plan; To review possible fpc facilities with patient and spouse.
--- NOTE | 2024-09-06 12:46 | W.PN.URO.CBU ---
Today's Communication / Plan
-
no gu chnage
Assessment / Plan
-
new left obstructive uropathy in chronically ill male with mets from acp New left hydro with emile due to 4.5 cm of stones distal ureter Left perc tube placed and converted to nephroureteral stent but leaving on external drainge as pt voiced
concerns over bladder abilty to hold urine etc
Diagnosis
-
Date of Service: September 06, 2024
-
Patient Diagnosis:
Post Op Day:
Patient Diagnosis:
Post Op Day:
Patient Diagnosis:
Post Op Day:
Patient Diagnosis:
Post Op Day:
Patient Diagnosis:
Post Op Day:
Patient Diagnosis:metastatic acp with new onset left hydro due to distal stones left ureter and atrophic rt kidney Pt s/p rpp and xrt and chemo , but progressive osseous and liver mets no obvious tierra disease Now hydro vomiting creatinine
1.4 to 3.9 and potassium 6.0
Post Op Day: 1 s/p left perc tube at [facility]
Subjective
-
sl improvement does not mind perc tube
Objective
-
Vital Signs
Temp Pulse Resp BP Pulse Ox
97.5 F 80 18 102/69 94
09/06/24 11:13 09/06/24 11:13 09/06/24 11:13 09/06/24 11:13 09/06/24 11:13
Intake and Output
09/05/24 09/06/24 09/07/24
06:59 06:59 06:59
Intake Total 3620 / 3620 700 / 700
Output Total 300 / 300 400 / 400
Balance 3320 / 3320 300 / 300
Intake:
Oral fluids 720 / 720
IV fluids (Total) 2900 / 2900 700 / 700
Output:
Urinary Drain Output (Total) 300 / 300 400 / 400
Left Nephrostomy 300 / 300 400 / 400
Urine, Voided 0 / 0
Other:
Number of approximated SMALL 1 1
amounts of urine
Number of approximated LARGE 1
amounts of urine
How many times incontinent 2
SATURATED amount urine
Laboratory Results
09/06/24 09:15
09/06/24 09:15
Review of Systems
-
: Flank Pain
Physical Exam
-
General - well developed, well nourished, no acute distress
Chest - clear bilaterally
Abdomen - soft, non-tender, positive bowel sounds, no CVAT, no incisional pain or distention
Genitalia - normal
Rectal - normal
Skin - warm & dry with no rash
Neuro - AOx3, no motor deficits
Extremities - no clubbing, no cyanosis, no edema
Incision - clean, dry
Dressing - clean, dry, intact
Care Review
Data Reviewed
Discussed with: Nursing
--- NOTE | 2024-09-06 12:46 | W.PN.NEPH.PH ---
Today's Communication / Plan
-
observe
labs in am
Assessment/Plan
-
Assessment
RADHA
Left obstructive uropathy stone at [facility]
Left percutaneous nephrostomy
Atrophic right kidney
Metastatic recurrent prostate cancer status post prostatectomy
Metabolic acidosis
Hypocalcemia
Anemia
Nephrolithiasis
Plan
cr improving slowly to 2.
s/p internalization of nephrostomy stent 09/04, also external drain
d/c IVF and encourage po intake
BP low, no evidence of volume overload
nils improving on po nils, check vit D
Follow BMP
d/w pt and
-
-
Date of Service: September 06, 2024
CC / HPI / ROS
-
Chief Complaint:
RADHA
History of Present Illness:
RADHA/Cr down to 2.
acidosis resolved bicarb at 26
BP low stable
poor po intake
nils 7.5 better
Review of Systems:
no CP/SOB
no n/v
physically weak
Labs
-
Labs:
WBC 15.5 10^3/uL (4.8-10.8) H 09/06/24 09:15
RBC 3.06 10^6/uL (4.70-6.10) L 09/06/24 09:15
Hgb 11.2 g/dL (13.0-18.0) L 09/06/24 09:15
Hct 31.5 % (39.0-52.0) L 09/06/24 09:15
Plt Count 178 10^3/uL (130-400) 09/06/24 09:15
Sodium 135 mmol/L (135-145) 09/06/24 09:15
Potassium 4.0 mmol/L (3.5-5.1) 09/06/24 09:15
Chloride 107 mmol/L (98-107) 09/06/24 09:15
Carbon Dioxide 26 mmol/L (22-30) 09/06/24 09:15
BUN 67 mg/dl (9-20) H 09/06/24 09:15
Creatinine 2.0 mg/dL (0.7-1.3) H 09/06/24 09:15
eGFR 34.59 09/06/24 09:15
Glucose 108 mg/dl (70-99) H 09/06/24 09:15
Calcium 7.5 mg/dl (8.4-10.2) L 09/06/24 09:15
Phosphorus 3.6 mg/dl (2.5-4.5) 09/01/24 10:33
Albumin 1.8 g/dl (3.5-5.0) L 09/03/24 04:53
Physical Exam
-
Vital Signs:
Vital Signs
Temp Pulse Resp BP Pulse Ox
97.5 F 80 18 102/69 94
09/06/24 11:13 09/06/24 11:13 09/06/24 11:13 09/06/24 11:13 09/06/24 11:13
Cardiovascular:: Regular rate and rhythm
Respiratory:: Bilateral: CTA
Lung Excursion:: Normal
Abdomen:: Nontender and Soft
Bowel Sounds:: Normal
Extremity Edema:: None: Bilateral: (trace)
Chaves Catheter: No
[2024-09-06] MEDS: ROCEPHIN 1000 MG IV (13:10)
[2024-09-06] MEDS: STERILE WATER FOR INJECTION 10 ML IV (13:17)
[2024-09-06] MEDS: DUONEB 3 ML INH (17:08)
[2024-09-06] MEDS: CELEXA 10 MG PO (17:51)
[2024-09-06] MEDS: ATIVAN 0.5 MG PO (18:40)
[2024-09-06] MEDS: TYLENOL 650 MG PO (20:14)
[2024-09-06] MEDS: ROXICODONE 2.5 MG PO (21:45)
[2024-09-07] VITALS (9 sets, daily range): BP systolic 93–108; BP diastolic 59–71; PULSE 102; O2SAT 95
[2024-09-07] MEDS: HEPARIN SC (00:20)
[2024-09-07 05:38] LABS: Blood Urea Nitrogen 73 mg/dl (9-20); Calcium 7.8 mg/dl (8.4-10.2); Carbon Dioxide 24 mmol/L (22-30); Chloride 105 mmol/L (98-107); Estimated Creatinine Clearance 29 ml/min; Glucose 107 mg/dl (70-99); Potassium 4.4 mmol/L (3.5-5.1); Sodium 135 mmol/L (135-145); eGFR 32.62
[2024-09-07 05:55] LABS: Vitamin D, 25-OH*** 41.3 ng/mL (30-80)
[2024-09-07] MEDS: DUONEB 3 ML INH ×2 (07:38→13:56)
[2024-09-07] MEDS: SPIRIVA RESPIMAT 2.5 MCG INH (07:38)
[2024-09-07] MEDS: NICODERM TRANSDERMAL 14 MG TRANSDERM (07:56)
[2024-09-07] MEDS: ASPIR LOW (ENTERIC COATED) 81 MG PO (07:57)
[2024-09-07] MEDS: VIBRAMYCIN 100 MG PO ×2 (07:57→20:07)
[2024-09-07] MEDS: B COMPLEX w/VITAMIN C 1 CAPLET PO (07:57)
[2024-09-07] MEDS: OSCAL 500 + D 500 MG PO ×2 (07:57→20:07)
[2024-09-07] MEDS: DELTASONE 5 MG PO ×2 (07:58→20:07)
[2024-09-07] MEDS: HEPARIN 5000 UNITS SC ×3 (07:58→23:46)
[2024-09-07] MEDS: ATIVAN 0.5 MG PO ×2 (07:58→20:07)
--- NOTE | 2024-09-07 09:03 | W.PN.HOSP.TC ---
Today's Communication/Plan
-
Antibiotics. ID eval.
Assessment / Plan
Assessment / Plan
Physical exam:
General: Acutely ill. Cachectic
HEENT: Normocephalic, Atraumatic and Moist Mucous Membranes
Respiratory: Some rhonchi bilateral; Negative Wheezes, Rales
Cardiac: Regular Rhythm and S1/S2
GI: Soft, +tender and Nondistended. PCN in place
Musculoskeletal: No Clubbing, No Cyanosis and No Edema
Neuro: Awake, Alert and Oriented, no neurological deficits but generalized weakness.
Psych: Down mood.
A/P:
Sepsis present on admission due to pneumonia (interstitial pneumonitis/interstitial lung disease has been considered but seems less likely):
Improving
Continue oral doxycycline
Cont IV ceftriaxone
Given hydrocortisone 200 mg IV x 1 on 09/02 and started on 50 mg every 8 hours afterwards--> discontinued IV steroids on 09/03 and back on home doses of oral prednisone (agree with pulm recommendations)
Follow-up cultures
White blood cell count 21.9--> 9.6; then it went up to 20 presumably due to steroids
Pulmonary consult appreciated
PT OT eval and recommending skilled rehab but patient and want to go home.
Discharge planning once cleared by nephrology as below
life sciences manager for discharge disposition
Discussed with at bedside today and they finally realized that they cannot go home even with home health so plan is to go to rehab.
Leukocytosis:
Probably related to steroids but unsure if anything else going on
Continue to trend
Request ID eval for further advice
RADHA on CKD:
Multifactorial etiology
Creatinine 3.9--> 2.1 today
Continue to monitor renal function closely
Appreciated nephrology and urology input
Discharge planning once cleared by nephrology
Metabolic acidosis:
Monitor acidosis closely
Off bicarb infusion and now on normal saline per nephrology
Left obstructive uropathy:
Left distal ureter 4.5 cm stone
Status post left percutaneous tube placed
Known history of right kidney atrophy
Right kidney mass kidney-->defer to urology further eval
Urology asked interventional radiology for exchange to internal stent
Metastatic prostate cancer:
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
There are liver and bony metastasis
Appreciate oncology consult
Palliative care consult appreciated
Hypotension:
On IV fluid
Improved
Anemia:
Continue to monitor hemoglobin closely
Hemoglobin 11.2 today
Stable
Hypocalcemia:
Replete and trend
Restart calcium supplementation
Severe protein calorie malnutrition:
Monitor nutrition status
Dietary consult
History of ischemic cardiomyopathy:
Continue monitor volume status
COPD:
Monitor respiratory status
Interstitial lung disease:
Monitor respiratory status
CAD:
Restart aspirin
Chest pain-free
Continue hospice manager
Depression:
Continue antidepressant
Hyperkalemia:
Resolved
DVT prophylaxis:
Heparin SQ
CODE STATUS:
Full code
Prognosis guarded overall
Anticipated Discharge: 24 - 48 hours
Subjective/Interval History
-
Date of Service: September 07, 2024
Patient with profound generalized weakness. Afebrile.
Objective Data
-
Labs:
Laboratory Results
09/07/24
05:00
Sodium 135
Potassium 4.4
Chloride 105
Carbon Dioxide 24
BUN 73 H
Creatinine 2.1 H
Glucose 107 H
Calcium 7.8 L
Vital Signs:
Vital Signs
Temp Pulse Resp BP Pulse Ox
98.6 F 82 18 106/66 93
09/07/24 07:30 09/07/24 07:44 09/07/24 07:44 09/07/24 07:30 09/07/24 07:44
I&O
09/06/24 09/07/24 09/08/24
06:59 06:59 06:59
Intake Total 700 / 700 840 / 840
Output Total 400 / 400 400 / 400
Balance 300 / 300 440 / 440
[2024-09-07 10:08] LABS: % Basophils 0.2 % (0-2); % Eosinophils 0.1 % (0-6); % Immature Granulocytes 0.6 % (0-0.5); % Lymphocytes 3.8 % (20.5-51.1); % Monocytes 3.9 % (1.7-9.3); % Neutrophils 91.4 % (42.2-75.2); Absolute Immature Granulocytes 0.1 10^3/uL (0-0.05); Absolute Lymphocytes 0.8 10^3/uL (1.2-3.4); Absolute Monocytes 0.8 10^3/uL (0.1-0.6); Absolute Neutrophils 18.3 10^3/uL (1.4-6.5); Hematocrit 34.2 % (39.0-52.0); Hemoglobin 12.1 g/dL (13.0-18.0); Mean Corp Hgb Conc. 35.4 g/dL (33.0-37.0); Mean Corpuscular Volume 104.6 fL (80.0-94.0); Mean Platelet Volume 11.7 fL (7.4-10.4); Nucleated Red Blood Cells % 0 % (-); Platelet Count 234 10^3/uL (130-400); Red Blood Cell Count 3.27 10^6/uL (4.70-6.10); Red Cell Dist. Width 15.9 % (11.5-14.5)
--- NOTE | 2024-09-07 11:51 | W.PN.NEPH.PH ---
Today's Communication / Plan
-
Follow BMP
Assessment/Plan
-
Assessment
RADHA
Left obstructive uropathy stone at [facility]
Left percutaneous nephrostomy
Atrophic right kidney
Metastatic recurrent prostate cancer status post prostatectomy
Metabolic acidosis
Hypocalcemia
Anemia
Nephrolithiasis
Plan
Follow BMP
s/p internalization of nephrostomy stent 09/04, also external drain
No IV fluids
Rehab planning
d/w pt and
-
-
Date of Service: September 07, 2024
CC / HPI / ROS
-
Chief Complaint:
RADHA
History of Present Illness:
RADHA/Cr stable at 2.1
acidosis resolved bicarb at 24
WBC up to 20
BP low stable
poor po intake
nils 7.8 better
Review of Systems:
no CP/SOB
no n/v
physically weak
Labs
-
Labs:
WBC 20.0 10^3/uL (4.8-10.8) H 09/07/24 09:50
RBC 3.27 10^6/uL (4.70-6.10) L 09/07/24 09:50
Hgb 12.1 g/dL (13.0-18.0) L 09/07/24 09:50
Hct 34.2 % (39.0-52.0) L 09/07/24 09:50
Plt Count 234 10^3/uL (130-400) D 09/07/24 09:50
Sodium 135 mmol/L (135-145) 09/07/24 05:00
Potassium 4.4 mmol/L (3.5-5.1) 09/07/24 05:00
Chloride 105 mmol/L (98-107) 09/07/24 05:00
Carbon Dioxide 24 mmol/L (22-30) 09/07/24 05:00
BUN 73 mg/dl (9-20) H 09/07/24 05:00
Creatinine 2.1 mg/dL (0.7-1.3) H 09/07/24 05:00
eGFR 32.62 09/07/24 05:00
Glucose 107 mg/dl (70-99) H 09/07/24 05:00
Calcium 7.8 mg/dl (8.4-10.2) L 09/07/24 05:00
Phosphorus 3.6 mg/dl (2.5-4.5) 09/01/24 10:33
Albumin 1.8 g/dl (3.5-5.0) L 09/03/24 04:53
Physical Exam
-
Vital Signs:
Vital Signs
Temp Pulse Resp BP Pulse Ox
98.7 F 115 22 100/62 95
09/07/24 11:39 09/07/24 11:39 09/07/24 11:39 09/07/24 11:39 09/07/24 11:39
Cardiovascular:: Regular rate and rhythm
Respiratory:: Bilateral: Coarse
Lung Excursion:: Normal
Abdomen:: Nontender and Soft
Bowel Sounds:: Normal
Extremity Edema:: None: Bilateral:
--- NOTE | 2024-09-07 12:49 | CM ---
system development manager spoke with physician, patient and spouse this morning and per patient's spouse patient cannot return to home at discharge and needs a week of rehab per spouse and is agreeable, options reviewed and patient has selected [facility] and
[facility], referral sent to both facilities.
Plan; Referrals sent to [facility] and [facility] for skilled placement, will need Auth for skilled placement.
[2024-09-07] MEDS: ROCEPHIN 1000 MG IV (14:02)
[2024-09-07] MEDS: STERILE WATER FOR INJECTION 10 ML IV (14:02)
--- NOTE | 2024-09-07 15:08 | W.PN.URO.CBU ---
Today's Communication / Plan
-
no gu interventions
Assessment / Plan
-
new left obstructive uropathy in chronically ill male with mets from acp New left hydro with emile due to 4.5 cm of stones distal ureter Left perc tube placed and converted to nephroureteral stent but leaving on external drainge as pt voiced
concerns over bladder abilty to hold urine etc
Diagnosis
-
Date of Service: September 07, 2024
-
Patient Diagnosis:
Post Op Day:
Patient Diagnosis:
Post Op Day:
Patient Diagnosis:
Post Op Day:
Patient Diagnosis:
Post Op Day:
Patient Diagnosis:
Post Op Day:
Patient Diagnosis:
Post Op Day:
Patient Diagnosis:metastatic acp with new onset left hydro due to distal stones left ureter and atrophic rt kidney Pt s/p rpp and xrt and chemo , but progressive osseous and liver mets no obvious tierra disease Now hydro vomiting creatinine
1.4 to 3.9 and potassium 6.0
Post Op Day: 1 s/p left perc tube at [facility]
Subjective
-
no new problema
Objective
-
Vital Signs
Temp Pulse Resp BP Pulse Ox
98.7 F 78 18 100/62 96
09/07/24 11:39 09/07/24 13:59 09/07/24 13:59 09/07/24 11:39 09/07/24 13:59
Intake and Output
09/06/24 09/07/24 09/08/24
06:59 06:59 06:59
Intake Total 700 / 700 840 / 840
Output Total 400 / 400 400 / 400
Balance 300 / 300 440 / 440
Intake:
Oral fluids 840 / 840
IV fluids (Total) 700 / 700
Output:
Urinary Drain Output (Total) 400 / 400 400 / 400
Left Nephrostomy 400 / 400 400 / 400
Urine, Voided 0 / 0
Other:
Number of approximated SMALL 1
amounts of urine
Number of approximated MODERATE 3
amounts of urine
Laboratory Results
09/07/24 09:50
09/07/24 05:00
Review of Systems
-
: Frequency
Physical Exam
-
General - well developed, well nourished, no acute distress
Chest - clear bilaterally
Abdomen - soft, non-tender, positive bowel sounds, no CVAT, no incisional pain or distention
Genitalia - normal
Rectal - normal
Skin - warm & dry with no rash
Neuro - AOx3, no motor deficits
Extremities - no clubbing, no cyanosis, no edema
Incision - clean, dry
Dressing - clean, dry, intact
Care Review
Data Reviewed
Discussed with: Nursing
--- NOTE | 2024-09-07 15:10 | CON.ID ---
Consultation
-
Date/Time Consultation Requested: 09/07/24 13:59
Date/Time Consultation Performed: 09/07/24 15:11
Requesting Provider: Dr Ledbetter
Performing Provider: Dr Ferrera
Reason for Consultation: PNA and worsening leukocytosis
Chief Complaint / Past History
Chief Complaint
FTT
History of Present Illness
Mr Regalado is a 73 year old male with history of prostate cancer s/p prostatectomy 2019 on denosumab and enzalutamide and triptorelin, pred 5mg, PSA on 06/21/2024 reportedly 240 ng/mL, PSA on 07/12/2024 reportedly 462 ng/mL, family reported PSA is now
over 1000, with disease progression in the bones and liver, bladder stent. Reports poor oral intake, fatigue, weakness. + cough, nonproductive and RUQ abdominal pain. No fevers, chills or hypotension. No sore throat, rhinorrhea. No sick
contacts. Minimal UOP. No chest pain shortness of breath.
Since arrival here he has been afebrile bp stable, wbc count initially 11.3 and on steroids have increased to 20.0, hgb 12.1, plt 234, L shift is noted, baseline cr 1.2 on arrival 2.9 and now 2.1, ua with hematuria and pyuria, few bacteria, covid ag
negative, /5 underwent nephrostomy tube placement on the L had return of dark cloudy urine and sent for culture, calculi seen in the distal L ureter, urology aware, CXR moderate GGOs in the peripheral right midlung - pneumonitis vs pneumonia,
extensive blastic osseous met disease, port, 09/01 CT a/p without contrast: extensive urinary calculi, cystitis, BL pleural effusions, 09/02 abd US: Severe diffuse hepatic metastatic disease and mild to moderate hepatomegaly, R renal atrophy, RCC, AAA,
09/02 CXR: Improving bibasilar pneumonia. Slightly progressed small left pleural effusion. Stent was internalized 09/04 and external catheter also maintained per urology, influenza and strep pneumo screens negative, resp culture was usual resp audie,
legionella urine ag also negative, urine culture no growth, one set of blood cultures sent on admission was negative. Given hydrocortisone 200 mg IV x 1 on 09/02, then hydrocortisone 50 mg every 8 hours, discontinued IV steroids on 09/03 and back on
home doses of oral prednisone. Patient received ceftriaxone (day 5) and doxycycline (day 4), resp culture negative.
Past History
Additional Past Medical History:
Coronary Artery Disease s/p TANYA (most recent August 2022)
Ischemic Cardiomyopathy
Non-Sustained VT
Essential Hypertension
Hyperlipidemia
CKD Stage 3B
COPD
Interstitial Lung Disease
Metastatic Prostate Cancer s/p Prostatectomy and Radiation
Depression
Additional Past Surgical History:
Cardiac Stents
Prostatectomy
Hernia Repair
Carpal Tunnel Release
port
Allergy History:
adhesive tape [Adhesive Tape] Allergy (Verified 10/11/23 17:18)
Has not happened since 2013
Medications Reviewed: Yes
Social History
Tobacco: Smoker
Personal:
Family History
Family History: Not Pertinent
Review of Systems
Review of Systems
General: Negative Fever or Chills
All systems: All other systems were reviewed and were negative
Vital Signs
Temp Pulse Resp BP Pulse Ox
98.7 F 78 18 100/62 96
09/07/24 11:39 09/07/24 13:59 09/07/24 13:59 09/07/24 11:39 09/07/24 13:59
Physical Exam
Physical Exam
Constitutional: No Acute Distress
Cardiovascular: Regular Rate and S1/S2; Negative Murmur or Rub
Pulmonary: Clear and Symmetric; Negative Wheezes, Rales or Rhonchi
Gastrointestinal: Soft, Non Tender, Non Distended and Normal Bowel Sounds
Skin: Warm and Dry; Negative Rash or Jaundice
Lab / Diagnostic Study Results
09/07/24 09:50
09/07/24 05:00
Abs Immat Gran (auto) 0.1 10^3/uL (0-0.05) H 09/07/24 09:50
Absolute Neuts (auto) 18.3 10^3/uL (1.4-6.5) H 09/07/24 09:50
Absolute Lymphs (auto) 0.8 10^3/uL (1.2-3.4) L 09/07/24 09:50
Absolute Monos (auto) 0.8 10^3/uL (0.1-0.6) H 09/07/24 09:50
Absolute Basos (auto) 0.0 10^3/uL (0-0.2) 09/07/24 09:50
Immature Gran % 0.6 % (0-0.5) H 09/07/24 09:50
Neutrophils % 91.4 % (42.2-75.2) H 09/07/24 09:50
Lymphocytes % 3.8 % (20.5-51.1) L 09/07/24 09:50
Monocytes % 3.9 % (1.7-9.3) 09/07/24 09:50
Eosinophils % 0.1 % (0-6) 09/07/24 09:50
Basophils % 0.2 % (0-2) 09/07/24 09:50
PT 15.7 Sec (11.4-14.6) H 09/01/24 20:14
INR 1.23 09/01/24 20:14
Urine WBC 60-70 /HPF (0-5) A 09/01/24 17:18
Ur Squamous Epith Cells 0-2 /LPF (Few) 09/01/24 17:18
Microbiology Results
Micro:
09/01/24 13:32 Blood Culture - Final
Blood/Venous No Growth - Final Report
09/01/24 17:18 Urine Culture - Final
Urine NO GROWTH
09/02/24 01:34 Respiratory Culture - Final
Sputum Usual Respiratory Audie
Gram Stain - Final
09/02/24 09:01 Streptococcus pneumoniae Antigen (M - Final
Urine Negative for Streptococcus pneumoniae antigen.
A negative result does not exclude infection with
Streptococcus pneumoniae. Clinical correlation is
recommended.
09/02/24 08:59 Influenza Types A & B (EBONI) - Final
Nasal Swab Negative for Influenza A & B, NAAT
Negative results must be combined with clinical observations
and patient history.
Nucleic Acid Amplification test (NAAT)performed on the
[employer] platform.
09/01/24 17:18 Legionella Urinary Antigen - Final
Urine Negative for Legionella pneumophila Serogroup 1 antigen.
A negative result does not rule out the possiblity of
Legionella infection due to other serogroups or species of
Legionella. Clinical correlation is recommended.
Assessment / Plan
Leukocytosis - most likely reactive
Progressive Metastatic Prostate Cancer
- was on minimal prednisone at home 5 mg
- stress dose steroids were stopped 09/03 - likely cause of ongoing leukocytosis
- sputum culture ususal resp audie
- covid/flu/s pneumo/legionella all negative
- completed adequate course of ceftriaxone today
- tomorrow is final day of planned course of doxycycline
- would not recommend further workup at this time - no documented neutropenia
- follow up with oncology
Workup required interpretation of numerous microbiologic tests and changes in antibiotic therapy.
[2024-09-07] MEDS: CELEXA 10 MG PO (16:46)
[2024-09-08 02:58] VITALS: BP 103/72
[2024-09-08 07:00] VITALS: BP 106/69
[2024-09-08 07:23] LABS: Blood Urea Nitrogen 80 mg/dl (9-20); Calcium 7.8 mg/dl (8.4-10.2); Carbon Dioxide 24 mmol/L (22-30); Chloride 105 mmol/L (98-107); Estimated Creatinine Clearance 28 ml/min; Glucose 96 mg/dl (70-99); Hematocrit 32.6 % (39.0-52.0); Hemoglobin 11.5 g/dL (13.0-18.0); Mean Corp Hgb Conc. 35.3 g/dL (33.0-37.0); Mean Corpuscular Hgb 36.3 pg (27.0-31.0); Mean Corpuscular Volume 102.8 fL (80.0-94.0); Mean Platelet Volume 11.5 fL (7.4-10.4); Platelet Count 185 10^3/uL (130-400); Potassium 4.3 mmol/L (3.5-5.1); Red Blood Cell Count 3.17 10^6/uL (4.70-6.10); Red Cell Dist. Width 15.9 % (11.5-14.5); Sodium 134 mmol/L (135-145); White Blood Cell Count 14.8 10^3/uL (4.8-10.8); eGFR 30.85
[2024-09-08] MEDS: SPIRIVA RESPIMAT 2.5 MCG 2 PUFF INH (07:29)
[2024-09-08] MEDS: OSCAL 500 + D 500 MG PO (08:52)
[2024-09-08] MEDS: B COMPLEX w/VITAMIN C 1 CAPLET PO (08:52)
[2024-09-08] MEDS: ASPIR LOW (ENTERIC COATED) 81 MG PO (08:52)
[2024-09-08] MEDS: VIBRAMYCIN 100 MG PO ×2 (08:53→20:15)
[2024-09-08] MEDS: DELTASONE 5 MG PO ×2 (08:53→20:15)
[2024-09-08] MEDS: NICODERM TRANSDERMAL 14 MG TRANSDERM (08:54)
[2024-09-08] MEDS: HEPARIN SC (08:57)
--- NOTE | 2024-09-08 09:08 | W.PN.NEPH.PH ---
Today's Communication / Plan
-
follow BMP
Assessment/Plan
-
Assessment
RADHA
Left obstructive uropathy stone at [facility]
Left percutaneous nephrostomy
Atrophic right kidney
Metastatic recurrent prostate cancer status post prostatectomy
Metabolic acidosis
Hypocalcemia
Anemia
Nephrolithiasis
Plan
Follow BMP
s/p internalization of nephrostomy stent 09/04, also external drain
No IV fluids
Rehab planning
Poor oral intake likely become an issue. Will change supplement to Enlive
-
-
Date of Service: September 08, 2024
CC / HPI / ROS
-
Chief Complaint:
RADHA
History of Present Illness:
RADHA/Cr stable at 2.2
acidosis resolved bicarb at 24
WBC down to 14.8
BUN slightly higher 80
BP low stable
Hgb stable 11.5
poor po intake
Review of Systems:
no CP/SOB
no n/v
physically weak
Labs
-
Labs:
WBC 14.8 10^3/uL (4.8-10.8) H 09/08/24 06:39
RBC 3.17 10^6/uL (4.70-6.10) L 09/08/24 06:39
Hgb 11.5 g/dL (13.0-18.0) L 09/08/24 06:39
Hct 32.6 % (39.0-52.0) L 09/08/24 06:39
Plt Count 185 10^3/uL (130-400) D 09/08/24 06:39
Sodium 134 mmol/L (135-145) L 09/08/24 06:39
Potassium 4.3 mmol/L (3.5-5.1) 09/08/24 06:39
Chloride 105 mmol/L (98-107) 09/08/24 06:39
Carbon Dioxide 24 mmol/L (22-30) 09/08/24 06:39
BUN 80 mg/dl (9-20) H 09/08/24 06:39
Creatinine 2.2 mg/dL (0.7-1.3) H 09/08/24 06:39
eGFR 30.85 09/08/24 06:39
Glucose 96 mg/dl (70-99) 09/08/24 06:39
Calcium 7.8 mg/dl (8.4-10.2) L 09/08/24 06:39
Phosphorus 3.6 mg/dl (2.5-4.5) 09/01/24 10:33
Albumin 1.8 g/dl (3.5-5.0) L 09/03/24 04:53
Physical Exam
-
Vital Signs:
Vital Signs
Temp Pulse Resp BP Pulse Ox
97.3 F 73 18 106/69 95
09/08/24 07:00 09/08/24 07:35 09/08/24 07:35 09/08/24 07:00 09/08/24 07:35
Cardiovascular:: Regular rate and rhythm
Respiratory:: Bilateral: Coarse
Lung Excursion:: Normal
Abdomen:: Nontender and Soft
Bowel Sounds:: Normal
Extremity Edema:: +1: Bilateral:
[2024-09-08] MEDS: ATIVAN 0.5 MG PO ×2 (09:11→20:11)
[2024-09-08] MEDS: DUONEB 3 ML INH (09:19)
--- NOTE | 2024-09-08 09:29 | W.PN.HOSP.TC ---
Today's Communication/Plan
-
Antibiotics. Discharge planning
Assessment / Plan
Assessment / Plan
Physical exam:
General: Acutely ill. Cachectic
HEENT: Normocephalic, Atraumatic and Moist Mucous Membranes
Respiratory: Some rhonchi bilateral; Negative Wheezes, Rales
Cardiac: Regular Rhythm and S1/S2
GI: Soft, Non-tender and Nondistended. PCN in place
Musculoskeletal: No Clubbing, No Cyanosis and No Edema
Neuro: Awake, Alert and Oriented, no neurological deficits but generalized weakness.
Psych: Down mood.
A/P:
Sepsis present on admission due to pneumonia (interstitial pneumonitis/interstitial lung disease has been considered but seems less likely):
Improving
Continue oral doxycycline, today last day
Finished course of IV ceftriaxone for 5 days.
Given hydrocortisone 200 mg IV x 1 on 09/02 and started on 50 mg every 8 hours afterwards--> discontinued IV steroids on 09/03 and back on home doses of oral prednisone (agree with pulm recommendations)
Follow-up cultures
White blood cell count 21.9--> 9.6; then it went up to 20 presumably due to steroids and now down to 14.8
Pulmonary consult appreciated
PT OT eval and recommending skilled rehab
hotel or motel manager for discharge disposition
Discussed with at bedside today and they finally realized that they cannot go home even with home health so plan is to go to rehab decided on 09/07.
Awaiting top case assembler for discharge disposition
Leukocytosis:
Reactive
Continue to trend
Request ID eval--> ID does agree that this is reactive (appreciated input)
RADHA on CKD:
Multifactorial etiology
Creatinine 3.9--> 2.2 today
Continue to monitor renal function closely
Appreciated nephrology and urology input
Discharge planning once cleared by nephrology
Metabolic acidosis:
Monitor acidosis closely
Off bicarb infusion and now on normal saline per nephrology
Left obstructive uropathy:
Left distal ureter 4.5 cm stone
Status post left percutaneous tube placed
Known history of right kidney atrophy
Right kidney mass kidney-->defer to urology further eval
Urology asked interventional radiology for exchange to internal stent
Metastatic prostate cancer:
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
There are liver and bony metastasis
Appreciate oncology consult
Palliative care consult appreciated
Hypotension:
On IV fluid
Improved
Anemia:
Continue to monitor hemoglobin closely
Hemoglobin 11.5 today
Stable
Hypocalcemia:
Replete and trend
Restart calcium supplementation
Hyponatremia:
Monitor
Severe protein calorie malnutrition:
Monitor nutrition status
Dietary consult
History of ischemic cardiomyopathy:
Continue monitor volume status
COPD:
Monitor respiratory status
Interstitial lung disease:
Monitor respiratory status
CAD:
Restart aspirin
Chest pain-free
Continue cardiac cath lab technologist
Depression:
Continue antidepressant
Hyperkalemia:
Resolved
DVT prophylaxis:
Heparin SQ
CODE STATUS:
Full code
Prognosis guarded overall
Anticipated Discharge: 24 - 48 hours
Subjective/Interval History
-
Date of Service: September 08, 2024
No new complaints. Weakness and poor oral intake. Afebrile
Objective Data
-
Labs:
Laboratory Results
09/08/24
06:39
WBC 14.8 H
Hgb 11.5 L
Hct 32.6 L
Plt Count 185 D
Sodium 134 L
Potassium 4.3
Chloride 105
Carbon Dioxide 24
BUN 80 H
Creatinine 2.2 H
Glucose 96
Calcium 7.8 L
Vital Signs:
Vital Signs
Temp Pulse Resp BP Pulse Ox
97.3 F 62 14 106/69 94
09/08/24 07:00 09/08/24 09:24 09/08/24 09:24 09/08/24 07:00 09/08/24 09:24
I&O
09/07/24 09/08/24 09/09/24
06:59 06:59 06:59
Intake Total 840 / 840
Output Total 400 / 400 950 / 950
Balance 440 / 440 -950 / -950
[2024-09-08 11:00] VITALS: BP 107/73
[2024-09-08 15:00] VITALS: BP 95/66
[2024-09-08] MEDS: HEPARIN 5000 UNITS SC (17:39)
[2024-09-08] MEDS: CELEXA 10 MG PO (17:40)
[2024-09-08 19:50] VITALS: BP 101/65
[2024-09-08] MEDS: OSCAL 500 + D PO (21:38)
[2024-09-08 23:11] VITALS: BP 100/62
[2024-09-09] MEDS: HEPARIN SC ×3 (00:10→16:14)
[2024-09-09 03:10] VITALS: BP 97/62
[2024-09-09 04:36] LABS: Hematocrit 31.2 % (39.0-52.0); Hemoglobin 11.4 g/dL (13.0-18.0); Mean Corp Hgb Conc. 36.5 g/dL (33.0-37.0); Mean Corpuscular Hgb 37.3 pg (27.0-31.0); Mean Platelet Volume 11.8 fL (7.4-10.4); Platelet Count 183 10^3/uL (130-400); Red Blood Cell Count 3.06 10^6/uL (4.70-6.10); Red Cell Dist. Width 15.6 % (11.5-14.5); White Blood Cell Count 17.9 10^3/uL (4.8-10.8)
[2024-09-09 05:02] LABS: Blood Urea Nitrogen 84 mg/dl (9-20); Calcium 7.8 mg/dl (8.4-10.2); Carbon Dioxide 23 mmol/L (22-30); Chloride 105 mmol/L (98-107); Estimated Creatinine Clearance 28 ml/min; Glucose 89 mg/dl (70-99); Potassium 4.4 mmol/L (3.5-5.1); Sodium 134 mmol/L (135-145); eGFR 30.85
[2024-09-09 07:00] VITALS: BP 96/64
[2024-09-09] MEDS: DUONEB 3 ML INH (07:29)
[2024-09-09] MEDS: SPIRIVA RESPIMAT 2.5 MCG INH (07:29)
--- NOTE | 2024-09-09 07:32 | W.PN.HOSP.TC ---
Today's Communication/Plan
-
Discharge planning
Assessment / Plan
Assessment / Plan
Physical exam:
General: Acutely ill. Cachectic
HEENT: Normocephalic, Atraumatic and Moist Mucous Membranes
Respiratory: Some rhonchi bilateral; Negative Wheezes, Rales
Cardiac: Regular Rhythm and S1/S2
GI: Soft, Non-tender and Nondistended. PCN in place
Musculoskeletal: No Clubbing, No Cyanosis and No Edema
Neuro: Awake, Alert and Oriented, no neurological deficits but generalized weakness.
Psych: Down mood.
A/P:
73yo M with metastatic prostate CA, COPD, HLD, CAD s/p TX came with worsening weakness and poor oral intake for past 3 weeks. Last chemo 3 weeks ago and PET showing significant disease progression. Found RADHA, UTI with L obstructing nephrolithiasis
s/p perc nephrostomy on the L on 09/01/24. Patient denies problem swallowing, describing lack of appetite as he cannot push anything to eat. Also concern for pneumonia on XR
A/P:
#RADHA on UTI with dehydration and L obstructing nephrolithiasis
#R renal aatrophy
Abx
Bcx NTD
Follow Ucx
Urology consult: nephrostomy and possible eventual lithotripsy
IDAD: s/p nephrostomy on 09/01/24
IVF
Cr slowly improving - cont to follow BMP
Hold NSAIDs and ACEi
#hyperkalemia
2/2 RADHA
resolved
#B/L lower lobe pneumonia
Add doxy
respiratory culture pending
Legionella neg
check S.pneumonia urinary Ag
COVID-19 and Influenza PCR
#RUQ abdominal pain with extensive hepatic metastatic disease
#Elevated alk.phos - most likely 2/2 extensive bone metastasis
Follow LFT
US RUQ
ZOsyn
#AAA
4.0cm
outpatient follow up
#Prostate CA with extensive hepatic and oseous metastasis
#Protein calorie malnutrition
s/p chemo 3 weeks ago with resultant poor functional capacity and decline, suspect reaction to chemo
Onc consult
Increased steroids to stress dose to attempt to improve functioning and appetite
#Anxiety
#CAD stable
#Iscemic CM
#HLD
#COPD not in exacerbation
#ILD
cont home meds
DVT ppx hep
full code
I have spent at least 59min reviewing chart, test results, communication with consultants and providing direct patient care
Anticipated Discharge: Within 24 hours
Subjective/Interval History
-
Date of Service: September 09, 2024
Patient with generalized weakness. Poor oral intake. Afebrile.
Objective Data
-
Labs:
Laboratory Results
09/09/24
04:20
WBC 17.9 H
Hgb 11.4 L
Hct 31.2 L
Plt Count 183
Sodium 134 L
Potassium 4.4
Chloride 105
Carbon Dioxide 23
BUN 84 H
Creatinine 2.2 H
Glucose 89
Calcium 7.8 L
Vital Signs:
Vital Signs
Temp Pulse Resp BP Pulse Ox
97.6 F 70 14 97/62 96
09/09/24 03:10 09/09/24 07:31 09/09/24 07:31 09/09/24 03:10 09/09/24 07:31
I&O
09/08/24 09/09/24 09/10/24
06:59 06:59 06:59
Intake Total 720 / 720
Output Total 950 / 950 950 / 950
Balance -950 / -950 -230 / -230
[2024-09-09] MEDS: ASPIR LOW (ENTERIC COATED) PO (09:12)
[2024-09-09] MEDS: B COMPLEX w/VITAMIN C PO (09:12)
[2024-09-09] MEDS: NICODERM TRANSDERMAL 14 MG TRANSDERM (09:13)
[2024-09-09] MEDS: DELTASONE 5 MG PO (09:13)
[2024-09-09] MEDS: OSCAL 500 + D PO ×2 (09:13→21:33)
[2024-09-09] MEDS: ATIVAN 0.5 MG PO ×3 (09:17→21:38)
[2024-09-09 11:00] VITALS: BP 94/65
--- NOTE | 2024-09-09 13:01 | W.PN.NEPH.PH ---
Today's Communication / Plan
-
Follow BMP
Assessment/Plan
-
Assessment
RADHA
Left obstructive uropathy stone at [facility]
Left percutaneous nephrostomy
Atrophic right kidney
Metastatic recurrent prostate cancer status post prostatectomy
Metabolic acidosis
Hypocalcemia
Anemia
Nephrolithiasis
Plan
Follow BMP
s/p internalization of nephrostomy stent 09/04, also external drain
Rehab planning
Poor oral intake likely become an issue. Drinking boost 1 or 2 bottles a day
I suspect his rising BUN is a consequence of his catabolic state
-
-
Date of Service: September 09, 2024
CC / HPI / ROS
-
Chief Complaint:
RADHA
History of Present Illness:
RADHA/Cr stable at 2.2
acidosis resolved bicarb at 23
BUN slightly higher 84
BP low stable
Hgb stable 11.4
Review of Systems:
no CP/SOB
no n/v
physically weak
Labs
-
Labs:
WBC 17.9 10^3/uL (4.8-10.8) H 09/09/24 04:20
RBC 3.06 10^6/uL (4.70-6.10) L 09/09/24 04:20
Hgb 11.4 g/dL (13.0-18.0) L 09/09/24 04:20
Hct 31.2 % (39.0-52.0) L 09/09/24 04:20
Plt Count 183 10^3/uL (130-400) 09/09/24 04:20
Sodium 134 mmol/L (135-145) L 09/09/24 04:20
Potassium 4.4 mmol/L (3.5-5.1) 09/09/24 04:20
Chloride 105 mmol/L (98-107) 09/09/24 04:20
Carbon Dioxide 23 mmol/L (22-30) 09/09/24 04:20
BUN 84 mg/dl (9-20) H 09/09/24 04:20
Creatinine 2.2 mg/dL (0.7-1.3) H 09/09/24 04:20
eGFR 30.85 09/09/24 04:20
Glucose 89 mg/dl (70-99) 09/09/24 04:20
Calcium 7.8 mg/dl (8.4-10.2) L 09/09/24 04:20
Phosphorus 3.6 mg/dl (2.5-4.5) 09/01/24 10:33
Albumin 1.8 g/dl (3.5-5.0) L 09/03/24 04:53
Physical Exam
-
Vital Signs:
Vital Signs
Temp Pulse Resp BP Pulse Ox
97.6 F 95 16 94/65 94
09/09/24 11:00 09/09/24 11:00 09/09/24 11:00 09/09/24 11:00 09/09/24 11:00
Cardiovascular:: Regular rate and rhythm
Respiratory:: Bilateral: Coarse
Lung Excursion:: Normal
Abdomen:: Nontender and Soft
Bowel Sounds:: Normal
Extremity Edema:: None: Bilateral:
--- NOTE | 2024-09-09 14:50 | PTCARENOTE ---
Assumed care of pt from previous nurse. Pt denies pain. Pt flat, emotional support provided. Pt drowsy. Pt call bailey is within reach, pt rings mi. will cont to monitor.
[2024-09-09 15:00] VITALS: BP 93/64
[2024-09-09] MEDS: NSS 250 IV (15:34)
[2024-09-09] MEDS: ProAmatine 5 MG PO (15:34)
[2024-09-09 16:48] LABS: Glucose - Point of Care 91 mg/dl (70-99)
[2024-09-09] MEDS: CELEXA PO ×2 (17:49→17:56)
[2024-09-09 19:39] VITALS: BP 95/64
[2024-09-09] MEDS: DELTASONE PO (21:38)
[2024-09-09 23:50] VITALS: BP 93/64
[2024-09-10] MEDS: HEPARIN SC (00:43)
[2024-09-10 02:28] VITALS: BP 93/65
[2024-09-10 06:08] LABS: Hematocrit 30.7 % (39.0-52.0); Hemoglobin 11.2 g/dL (13.0-18.0); Mean Corp Hgb Conc. 36.5 g/dL (33.0-37.0); Mean Corpuscular Hgb 36.8 pg (27.0-31.0); Mean Platelet Volume 12.5 fL (7.4-10.4); Platelet Count 158 10^3/uL (130-400); Red Blood Cell Count 3.04 10^6/uL (4.70-6.10); Red Cell Dist. Width 15.4 % (11.5-14.5); White Blood Cell Count 16.5 10^3/uL (4.8-10.8)
[2024-09-10 06:32] LABS: Blood Urea Nitrogen 90 mg/dl (9-20); Calcium 7.5 mg/dl (8.4-10.2); Carbon Dioxide 20 mmol/L (22-30); Chloride 107 mmol/L (98-107); Estimated Creatinine Clearance 28 ml/min; Glucose 82 mg/dl (70-99); Potassium 4.5 mmol/L (3.5-5.1); Sodium 136 mmol/L (135-145); eGFR 30.66
--- NOTE | 2024-09-10 06:41 | PTCARENOTE ---
Pt noted to have moderate- large amount of yellow drainage coming from near nephrostomy site. SOFTWARE PRODUCT MANAGER made aware, SOFTWARE PRODUCT MANAGER at beside. Dressing reinforced with surgical tape. SOFTWARE PRODUCT MANAGER states to monitor and see if more drainage is noted. During morning change pt noted
to have more drainage coming from nephrostomy site as leonor was saturated near site. SOFTWARE PRODUCT MANAGER made aware, SOFTWARE PRODUCT MANAGER states she will TT IR. No further orders. Nephrostomy with 500 total overnight output.
[2024-09-10] MEDS: SPIRIVA RESPIMAT 2.5 MCG 2 PUFF INH (07:55)
[2024-09-10 08:00] VITALS: BP 96/61
[2024-09-10] MEDS: ASPIR LOW (ENTERIC COATED) 81 MG PO (09:19)
[2024-09-10] MEDS: HEPARIN 5000 UNITS SC (09:19)
[2024-09-10] MEDS: DELTASONE 5 MG PO (09:19)
[2024-09-10] MEDS: OSCAL 500 + D 500 MG PO ×2 (09:19→19:58)
[2024-09-10] MEDS: B COMPLEX w/VITAMIN C 1 CAPLET PO (09:19)
[2024-09-10] MEDS: NICODERM TRANSDERMAL 14 MG TRANSDERM (09:20)
[2024-09-10] MEDS: ATIVAN 0.5 MG PO ×2 (09:28→19:58)
[2024-09-10 12:19] VITALS: BP 94/62
--- NOTE | 2024-09-10 12:20 | W.PN.NEPH.PH ---
Today's Communication / Plan
-
NG tube as patient is not eating
Assessment/Plan
-
Assessment
RADHA
Left obstructive uropathy stone at [facility]
Left percutaneous nephrostomy
Atrophic right kidney
Metastatic recurrent prostate cancer status post prostatectomy
Metabolic acidosis
Hypocalcemia
Anemia
Nephrolithiasis
Plan
Follow BMP
s/p internalization of nephrostomy stent 09/04, also external drain
Rehab planning
Poor oral intake likely become an issue. Drinking boost 1 or 2 bottles a day
I suspect his rising BUN is a consequence of his catabolic state
I discussed with the daughter at bedside and will be will need NG tube or Dobbhoff as patient agreed
Creatinine relatively stable
-
-
Date of Service: September 10, 2024
CC / HPI / ROS
-
Chief Complaint:
RADHA
History of Present Illness:
RADHA/Cr stable at 2.2
acidosis resolved bicarb at 23
BUN slightly higher 84
BP low stable
Hgb stable 11.4
Review of Systems:
no CP/SOB
no n/v
physically weak
Labs
-
Labs:
WBC 16.5 10^3/uL (4.8-10.8) H 09/10/24 05:18
RBC 3.04 10^6/uL (4.70-6.10) L 09/10/24 05:18
Hgb 11.2 g/dL (13.0-18.0) L 09/10/24 05:18
Hct 30.7 % (39.0-52.0) L 09/10/24 05:18
Plt Count 158 10^3/uL (130-400) 09/10/24 05:18
Sodium 136 mmol/L (135-145) 09/10/24 05:19
Potassium 4.5 mmol/L (3.5-5.1) 09/10/24 05:19
Chloride 107 mmol/L (98-107) 09/10/24 05:19
Carbon Dioxide 20 mmol/L (22-30) L 09/10/24 05:19
BUN 90 mg/dl (9-20) H 09/10/24 05:19
Creatinine 2.2 mg/dL (0.7-1.3) H 09/10/24 05:19
eGFR 30.66 09/10/24 05:19
Glucose 82 mg/dl (70-99) 09/10/24 05:19
Calcium 7.5 mg/dl (8.4-10.2) L 09/10/24 05:19
Phosphorus 3.6 mg/dl (2.5-4.5) 09/01/24 10:33
Albumin 1.8 g/dl (3.5-5.0) L 09/03/24 04:53
Physical Exam
-
Vital Signs:
Vital Signs
Temp Pulse Resp BP Pulse Ox
97.5 F 78 16 94/62 95
09/10/24 08:00 09/10/24 12:19 09/10/24 12:19 09/10/24 12:19 09/10/24 12:19
Cardiovascular:: Regular rate and rhythm
Respiratory:: Bilateral: Coarse
Lung Excursion:: Normal
Abdomen:: Nontender and Soft
Bowel Sounds:: Normal
Extremity Edema:: None: Bilateral:
--- NOTE | 2024-09-10 13:32 | W.PN.HOSP.TC ---
Today's Communication/Plan
-
Gi for dubhoff and eventual PEG
watch for refeeding syndrome
Assessment / Plan
Assessment / Plan
73yo M with metastatic prostate CA, COPD, HLD, CAD s/p NC came with worsening weakness and poor oral intake for past 3 weeks. Last chemo 3 weeks ago and PET showing significant disease progression. Found RADHA, UTI with L obstructing nephrolithiasis
s/p perc nephrostomy on the L on 09/01/24. Patient denies problem swallowing, describing lack of appetite as he cannot push anything to eat. Also concern for pneumonia on XR. JJ placed on 09/06/24, however perc nephrostomy left in place since patient
voiced concern with urinary bladder holding urine.
A/P:
#RADHA on UTI with dehydration and L obstructing nephrolithiasis
#R renal atrophy
Abx completed
Bcx NTD
Ucx NTD
Urology consult: nephrostomy and possible eventual lithotripsy
IDAD: s/p nephrostomy on 09/01/24
Cr slowly improving - cont to follow BMP
Hold NSAIDs and ACEi
#Asthenia with lack of appetite
multifactorial, most likely due to metastatic CA, recent chemo with overall functional decline
Stress dose steroids did not help
Patient and family agreeable for alternative means of feeding
NG tube, GI consult
#leukocytosis
most likely 2/2 chronic steroids
ID consult: monitor off Abx
#hyperkalemia
2/2 RADHA
resolved
#B/L lower lobe pneumonia
completed Abx
Legionella neg
S.pneumonia urinary Ag neg
COVID-19 and Influenza PCR neg
#RUQ abdominal pain with extensive hepatic metastatic disease
#Elevated alk.phos - most likely 2/2 extensive bone metastasis
Follow LFT
US RUQ
ZOsyn
#AAA
4.0cm
outpatient follow up
#Prostate CA with extensive hepatic and osseous metastasis
#Protein calorie malnutrition
s/p chemo 3 weeks ago with resultant poor functional capacity and decline, suspect reaction to chemo
Onc consult
Increased steroids to stress dose to attempt to improve functioning and appetite
#Anxiety
#CAD stable
#Iscemic CM
#HLD
#COPD not in exacerbation
#ILD
cont home meds
DVT ppx hep
full code
I have spent at least 59min reviewing chart, test results, communication with consultants and providing direct patient care
Anticipated Discharge: 24 - 48 hours
Subjective/Interval History
-
Date of Service: September 10, 2024
Objective Data
-
Labs:
Laboratory Results
09/10/24 09/10/24
05:18 05:19
WBC 16.5 H
Hgb 11.2 L
Hct 30.7 L
Plt Count 158
Sodium 136
Potassium 4.5
Chloride 107
Carbon Dioxide 20 L
BUN 90 H
Creatinine 2.2 H
Glucose 82
Calcium 7.5 L
Vital Signs:
Vital Signs
Temp Pulse Resp BP Pulse Ox
97.5 F 78 16 94/62 95
09/10/24 08:00 09/10/24 12:19 09/10/24 12:19 09/10/24 12:19 09/10/24 12:19
I&O
09/09/24 09/10/24 09/11/24
06:59 06:59 06:59
Intake Total 720 / 720 0 / 0
Output Total 950 / 950 670 / 670
Balance -230 / -230 -670 / -670
Review of Systems
-
History Source: Patient
Physical Exam
-
General: Cachectic
HEENT: Negative Moist Mucous Membranes
Respiratory: Clear to Auscultation
Cardiac: Regular Rhythm
GI: Soft, Nontender and Nondistended
Musculoskeletal: No Clubbing, No Cyanosis and No Edema
Neuro: Awake, Alert, Oriented, AO x 3 and Other (lethargic)
Psych: Calm
--- NOTE | 2024-09-10 13:45 | CM ---
Chart reviewed and GI have been consulted, and patient for possible feeding tube. Plan was for skilled placement will follow with patient progress and assist with discharge planning for patient.
Plan; Discharge planning.
--- NOTE | 2024-09-10 13:47 | W.PN.UPDATE ---
Update Note
Progress Note Update
Add low dose mirtazapine at PM in attempt to stimulate appetite
--- NOTE | 2024-09-10 14:03 | CON.GI ---
Addendum entered and electronically signed by Mary Alice Brown Do, MD 09/10/24 17:14:
I saw and examined the patient.
The DAY CAMP COUNSELOR's note was reviewed and I agree with the note.
Comment: Ed is a 74yo M with h/o prostate cancer s/p resection and XRT with diffuse metastatic disease who was admitted for failure to thrive with wt loss of 100lbs since 2019. He has no appetite but no direct inability to eat. PEG was desired by
patient with support from his . Vitals stable exam cachexia NTTP small periumbilical hernia surgery scar seen Labs reviewed.
Did discuss that PEG tube risk/benefits. He would like to proceed to pursue liquid XRT at [facility]. Ancef inclusion special education teacher to OR. NPO at [place]. Plan for PEG tomorrow. All questions answered.
Original Note:
Consultation
-
Date/Time Consultation Requested: 09/07/24 1345
Date/Time Consultation Performed: 09/10/24 1400
Requesting Provider: Andrés Blankenship MD
Performing Provider: AZAM Ram, Mary Alice Painter MD
Reason for Consultation: nutritional evaluation
Medical History
Chief Complaint / HPI
Chief Complaint: decreased oral intakes
History of Present Illness:
Pt is a 74yo with hx prostate CA with prior prostatectomy/radiation, with mets bone and liver, COPD, HLD, CAD with prior PR/ TANYA , NSVT, with recent concern for progression of metastatic disease. In review with family pt had prostatectomy in
March 2019. He initially had radiation then around 2019 had mets to hip requiring radiation. He then had further progression on bone and live mets. Per patient he stopped chemo and was recommended follow up with [facility] to consider further
type of ' liquid radiation ' per family. He now presents with shortness of breath with concern for rise increased on admission, K 6. He was also noted with new hydro with distal ureteral stent and placement of percutaneous nephrostomy tube with
urology following. Now asked to see from GI for continued wt loss about 100lb since diagnosis in 2019.
In review with patient and family pt with recent lethargy but awakens and answering questions appropriately. he admits to hiccups with eating but denies odynophagia, and dysphagia and just decreased appetite. HE denies any nausea, vomiting,
abdominal pain. He did have constipation then diarrhea with recent chemo but admits to regular stools that are loose during admission. no blood or black in stools. No hx prior EGD but hx colonoscopy last in [address] Prater.
Past Medical History
Past Medical History: Arrhythmias (NSVT), CAD, Cancer (prostate CA), COPD, Hypercholesterolemia and PR
Past Surgical History: Cardiac (TANYA), Orthopedic (carpel tunnel release ) and Other (hernia repair)
Social History
Tobacco: Non-Smoker
Alcohol: None
Drug: None
Personal:
Living: With Family
Employment: Retired
Family History
Family History: Reviewed & Not Pertinent
Allergies / Home Medications
Allergy/AdvReac Type Severity Reaction Status Date / Time
adhesive tape [Adhesive Tape] Allergy Has not Verified 10/11/23 17:18
happened
since 2013
�Medication �Instructions �Recorded
triptorelin pamoate 22.5 mg IM 22.5 mg IM [id number] Cancer 12/26/20
suspension (Trelstar)
enzalutamide 80 mg tablet (Xtandi) 80 mg PO BID Cancer 07/12/22
denosumab 120 mg/1.7 mL (70 mg/mL) 120 mg SC [facility] 05/16/23
subcutaneous solution (Xgeva)
prednisone 5 mg tablet 5 mg PO BID Anti-Inflammatory 05/16/23
aspirin 81 mg tablet,delayed 81 mg PO DAILY Blood Clot 09/01/24
release Prevention/Tx
calcium 600 mg (as 1 tab PO BID Supplement 09/01/24
carbonate)-vitamin D3 5 mcg (200
unit) tablet
citalopram 10 mg tablet 10 mg PO DAILY Mental 09/01/24
Health/Anxiety
lorazepam 0.5 mg tablet 0.5 mg PO BID PRN anxiety 09/01/24
vitamin B complex 1 tab PO DAILY Supplement 09/01/24
Review of Systems
-
Unable to obtain full review of systems at this time due to: Other (pt with some lethargy but answering questions )
History Source: Patient and Family
Constitutional: Reports Weight Loss, Fatigue and Other (lethargy)
EENT: Reports No Symptoms
Respiratory: Reports No Symptoms
Cardiac: Reports No Symptoms
Abdomen/GI: Reports Other (decreased appetite, belching with eating )
: Reports Other (recent urologic symptoms )
Musculoskeletal: Reports No Symptoms
Skin: Reports No Symptoms
Neurological: Reports Weakness
Endocrine: Reports No Symptoms
Hematologic/Lymphatic: Reports No Symptoms
Vital Signs
Temp Pulse Resp BP Pulse Ox
97.5 F 78 16 94/62 95
09/10/24 08:00 09/10/24 12:19 09/10/24 12:19 09/10/24 12:19 09/10/24 12:19
Physical Exam
Exam
General: Other (chronic ill apearing with cachexia, pale and some lethargy but appropriate in conversation)
HEENT: Normocephalic and Anicteric
Respiratory: Clear
Cardiac: Regular Rhythm
GI: Soft
Musculoskeletal: No Clubbing and No Cyanosis
Skin: Warm and Dry
Neuro: Other (awakens to voice )
Psych: Calm
Results
WBC 16.5 10^3/uL (4.8-10.8) H 09/10/24 05:18
Hgb 11.2 g/dL (13.0-18.0) L 09/10/24 05:18
Hct 30.7 % (39.0-52.0) L 09/10/24 05:18
MCV 101.0 fL (80.0-94.0) H 09/10/24 05:18
Plt Count 158 10^3/uL (130-400) 09/10/24 05:18
Absolute Neuts (auto) 18.3 10^3/uL (1.4-6.5) H 09/07/24 09:50
PT 15.7 Sec (11.4-14.6) H 09/01/24 20:14
INR 1.23 09/01/24 20:14
Sodium 136 mmol/L (135-145) 09/10/24 05:19
Potassium 4.5 mmol/L (3.5-5.1) 09/10/24 05:19
Chloride 107 mmol/L (98-107) 09/10/24 05:19
Carbon Dioxide 20 mmol/L (22-30) L 09/10/24 05:19
BUN 90 mg/dl (9-20) H 09/10/24 05:19
Creatinine 2.2 mg/dL (0.7-1.3) H 09/10/24 05:19
Calcium 7.5 mg/dl (8.4-10.2) L 09/10/24 05:19
Total Bilirubin 0.4 mg/dl (0.2-1.3) 09/03/24 04:53
AST 40 U/L (17-59) 09/03/24 04:53
ALT 25 U/L (0-50) 09/03/24 04:53
Alkaline Phosphatase 167 U/L (38-126) H 09/03/24 04:53
Diagnostic Image Results:
PET completed 08/20/24 with progressive disease with multiple prior osseous lesions had increased and few new lesion and progressive hepatic mets with no uptake in prostate bed or lymph nodes
. CT Abd/pel Without Iv Or Oral
1. Extensive adjacent urinary calculi within the distal left ureter extending over the distal approximately 4.5 cm of the left ureter extending to the left ureterovesical junction, with associated moderate left hydroureteronephrosis, new from
08/20/2024.
2. Probable cystitis.
3. Small bilateral pleural effusions. Scattered mild atelectasis and/or pneumonia within the bilateral lower lung zones.
4. Additional chronic incidental findings as described.
09/02/24 US Abdomen Complete/Upper
1. Severe diffuse hepatic metastatic disease and mild to moderate hepatomegaly.
2. Small volume of upper abdominal ascites.
3. Severe right renal atrophy.
4. 3.8 cm central region of hypoechogenicity in the atrophic right kidney which could be a right renal mass (renal cell carcinoma).
5. Mild residual left hydronephrosis which has decreased following left percutaneous nephrostomy tube placement.
6. Fusiform infrarenal abdominal aortic aneurysm (3.4 cm AP dimension).
7. Small bilateral pleural effusions.
12/2019 wal colonoscopy to TI with good prep No mass or large polyps to explain the + Cologuard.
Likely secondary to a small amount of insignificant
bleeding or a false positive (more common in smokers and
older patients).
- A surgically absent prostate found on digital rectal
exam.
- Diverticulosis in the left colon.
- Erythematous mucosa in the sigmoid colon. Biopsied.
- One 3 mm polyp in the cecum, removed with a jumbo cold
forceps. Resected and retrieved.
- The examined portion of the ileum was normal.
- Otherwise normal to terminal ileum.
EGD none
Assessment / Plan
-
Pt is a 74yo with hx prostate CA with prior prostatectomy/radiation, with mets bone and liver, COPD, HLD, CAD with prior PR/ TANYA, NSVT with recent concern for progression of metastatic disease. In review with family pt had prostatectomy in March
2018. He initially had radiation then around 2019 had mets to hip requiring radiation. He then had further progression on bone and live mets. Per patient he stopped chemo and was recommended follow up with Kapil to consider further type of '
liquid radiation ' per family. He now presents with shortness of breath with concern for rise increased on admission, K 6. He was also noted with new hydro with distal ureteral stent and placement of percutaneous nephrostomy tube with urology
following. Now asked to see from GI for continued wt loss about 100lb since diagnosis in 2019.
--failure to thrive with wt loss
-progression of metastatic prostate CA with bone and liver mets
--hiccups with eating
-obstructing nephrolithiasis with nephrostomy tube placement
-chronic steroid use
-leukocytosis
-RADHA on admission
-alternating diarrhea and constipation
other med problems:
-COPD
-HLD
-CAD with prior stent
-NSVT
PLAN:
Pt with progression of metastatic disease and wt loss -- 100 lbs since 2019
he wishes for continued nutrition and proceed with peg placement -- family wishes to agree with pt decision -- discussed risk/benefits and alternatives
I reviewed with patient to consider options and will stop in AM to confirm if he wishes to proceed-- will be in early AM to review
added antibiotics tentative prior to peg
will also do EGD with peg to exclude any other etiology of hiccups with eating
add PPI with chronic steroid use
cont NPO
pt with some lethargy in exam -- check ammonia level in AM
repeat LFT's and INR along with CBC and chemistry to ensure stable to proceed
reviewed with patient and family nutrition will not prolong life or increased strength-- will take time with PT and reconditioning as pt wishes to still proceed with therapy at [facility] when improved and currently not ready for hospice.
-
-
Thank you for consultation and allowing me to participate in the patient's care. Please call the inclusion special education teacher GI physician during the after hours with any questions or concerns.
[2024-09-10 15:45] VITALS: BP 102/67
[2024-09-10] MEDS: PROTONIX IV 40 MG IV (17:02)
[2024-09-10] MEDS: NSS (PRESERVATIVE FREE) 10 ML IV (17:02)
[2024-09-10] MEDS: D5/0.9% SODIUM CHLORIDE 1000 IV (17:02)
[2024-09-10] MEDS: CELEXA PO ×2 (17:03→17:30)
[2024-09-10 19:33] VITALS: BP 93/62
[2024-09-10] MEDS: DELTASONE 10 MG PO (19:58)
[2024-09-10] MEDS: REMERON 7.5 MG PO (22:08)
[2024-09-10 23:51] VITALS: BP 100/63
[2024-09-11] VITALS (8 sets, daily range): BP systolic 85–119; BP diastolic 58–73
--- NOTE | 2024-09-11 05:59 | W.PN.UPDATE ---
Update Note
Progress Note Update
Nephrostomy tube noted with large amount of urine leaking from the insertion site. IR consult was placed for nephrostomy tube replacement as needed.
--- NOTE | 2024-09-11 06:00 | PTCARENOTE ---
Pt nephrostomy site noted to be draining large amounts of yellow drainage from insertion site. Dressing noted to be saturated along with chux underneath pt on left side. Pt dressing reinforced with surgical tape. Albert Luna made aware. IR
consult ordered. No further orders.
[2024-09-11] MEDS: D5/0.9% SODIUM CHLORIDE 1000 IV (06:34)
--- NOTE | 2024-09-11 06:38 | PTCARENOTE ---
Pt nephrostomy site noted to be draining large amounts of yellow urine from insertion site. Dressing noted to be saturated along with chux underneath pt on left side. Pt dressing reinforced with surgical tape. SENIOR CORPORATE ACCOUNTANT Albert English made aware. IR
consult ordered. Pt output into drainage bag 400 mL overnight. No further orders.
[2024-09-11 06:46] LABS: Hematocrit 32.9 % (39.0-52.0); Hemoglobin 11.7 g/dL (13.0-18.0); Mean Corp Hgb Conc. 35.6 g/dL (33.0-37.0); Mean Corpuscular Hgb 36.7 pg (27.0-31.0); Mean Corpuscular Volume 103.1 fL (80.0-94.0); Mean Platelet Volume 11.6 fL (7.4-10.4); Platelet Count 148 10^3/uL (130-400); Red Blood Cell Count 3.19 10^6/uL (4.70-6.10); Red Cell Dist. Width 15.6 % (11.5-14.5); White Blood Cell Count 14.5 10^3/uL (4.8-10.8)
[2024-09-11 06:54] LABS: INR 1.21; PT 15.6 Sec (11.4-14.6)
[2024-09-11 06:55] LABS: Ammonia 13 umol/L (9-30)
[2024-09-11 07:16] LABS: ALT (SGPT) 41 U/L (0-50); AST (SGOT) 66 U/L (17-59); Albumin 1.7 g/dl (3.5-5.0); Alkaline Phosphatase 206 U/L (38-126); Blood Urea Nitrogen 88 mg/dl (9-20); Calcium 7.5 mg/dl (8.4-10.2); Carbon Dioxide 21 mmol/L (22-30); Chloride 109 mmol/L (98-107); Estimated Creatinine Clearance 28 ml/min; Glucose 99 mg/dl (70-99); Magnesium 1.9 mg/dl (1.6-2.3); Phosphorus 4.6 mg/dl (2.5-4.5); Potassium 4.4 mmol/L (3.5-5.1); Sodium 137 mmol/L (135-145); Total Bilirubin 0.8 mg/dl (0.2-1.3); Total Protein 3.8 g/dl (6.3-8.2); eGFR 30.66
[2024-09-11] MEDS: SPIRIVA RESPIMAT 2.5 MCG 2 PUFF INH (07:57)
[2024-09-11] MEDS: NSS (PRESERVATIVE FREE) 10 ML IV (09:26)
[2024-09-11] MEDS: DELTASONE 10 MG PO (09:26)
[2024-09-11] MEDS: B COMPLEX w/VITAMIN C 1 CAPLET PO (09:26)
[2024-09-11] MEDS: ASPIR LOW (ENTERIC COATED) 81 MG PO (09:26)
[2024-09-11] MEDS: PROTONIX IV 40 MG IV (09:26)
[2024-09-11] MEDS: OSCAL 500 + D 500 MG PO (09:26)
[2024-09-11] MEDS: NICODERM TRANSDERMAL 14 MG TRANSDERM (09:31)
--- NOTE | 2024-09-11 10:45 | W.PN.UPDATE ---
Update Note
Progress Note Update
Pt for possible peg. Reviewed imaging with Dr. Dodd with enlarged liver. Pt left for IR for tube change and spoke with family. Will reconsult oncology for goals of care as patient hoping for [place] treatment to see if would be candidate
with decline in mobility and mental status. GI team will see today again when pt returns.
--- NOTE | 2024-09-11 10:52 | W.PN.HOSP.TC ---
Today's Communication/Plan
-
GI for PEG
IRAD for repositioning nephrostomy to renal pelvis due to urine leakage
XR chest
Assessment / Plan
Assessment / Plan
73yo M with metastatic prostate CA, COPD, HLD, CAD s/p [place] came with worsening weakness and poor oral intake for past 3 weeks. Last chemo 3 weeks ago and PET showing significant disease progression. Found RADHA, UTI with L obstructing nephrolithiasis
s/p perc nephrostomy on the L on 09/01/24. Patient denies problem swallowing, describing lack of appetite as he cannot push anything to eat. Also concern for pneumonia on XR. Nepghrostomy internalized the perc to nephroureteral stent, however
developed leakage around catheter, so planed to reverse to usual nephrostomy position on 09/11/24.
A/P:
#RADHA on UTI with dehydration and L obstructing nephrolithiasis
#R renal atrophy
Abx completed
Bcx NTD
Ucx NTD
Urology consult: nephrostomy
IDAD: s/p nephrostomy on 09/01/24
Cr slowly improving - cont to follow BMP
Hold NSAIDs and ACEi
#Asthenia with lack of appetite
multifactorial, most likely due to metastatic CA, recent chemo with overall functional decline
Stress dose steroids did not help
Patient and family agreeable for alternative means of feeding
GI consult for PEG
#leukocytosis
most likely 2/2 chronic steroids
ID consult: monitor off Abx
#hyperkalemia
2/2 RADHA
resolved
#B/L lower lobe pneumonia
completed Abx
Legionella neg
S.pneumonia urinary Ag neg
COVID-19 and Influenza PCR neg
#RUQ abdominal pain with extensive hepatic metastatic disease
#Elevated alk.phos - most likely 2/2 extensive bone metastasis
Follow LFT
US RUQ
ZOsyn
#AAA
4.0cm
outpatient follow up
#Prostate CA with extensive hepatic and osseous metastasis
#Protein calorie malnutrition
s/p chemo 3 weeks ago with resultant poor functional capacity and decline, suspect reaction to chemo
Onc consult
Increased steroids to stress dose to attempt to improve functioning and appetite
#Anxiety
#CAD stable
#Iscemic CM
#HLD
#COPD not in exacerbation
#ILD
cont home meds
DVT ppx hep
full code
I have spent at least 39min reviewing chart, test results, communication with consultants and providing direct patient care
Anticipated Discharge: 24 - 48 hours
Subjective/Interval History
-
Date of Service: September 11, 2024
Objective Data
-
Labs:
Laboratory Results
09/11/24
06:35
WBC 14.5 H
Hgb 11.7 L
Hct 32.9 L
Plt Count 148
PT 15.6 H
INR 1.21
Sodium 137
Potassium 4.4
Chloride 109 H
Carbon Dioxide 21 L
BUN 88 H
Creatinine 2.2 H
Glucose 99
Calcium 7.5 L
Total Bilirubin 0.8
AST 66 H
ALT 41
Alkaline Phosphatase 206 H
Vital Signs:
Vital Signs
Temp Pulse Resp BP Pulse Ox
97.4 F 85 15 92/65 91
09/11/24 08:36 09/11/24 10:43 09/11/24 10:43 09/11/24 10:43 09/11/24 10:43
I&O
09/10/24 09/11/24 09/12/24
06:59 06:59 06:59
Intake Total 0 / 0 120 / 120
Output Total 670 / 670 650 / 650
Balance -670 / -670 -530 / -530
Review of Systems
-
History Source: Patient
All other systems: Reviewed and negative
Physical Exam
-
General: No Apparent Distress
HEENT: Normocephalic
Respiratory: Clear to Auscultation
GI: Soft, Nontender and Nondistended
Neuro: Awake, Alert and Other (lethargic)
Psych: Calm
--- NOTE | 2024-09-11 11:10 | W.PN.UPDATE ---
Update Note
Progress Note Update
chest XR with bibasilar effusions, most likely 2/2 bedbound status and low albumin level. Already working on establishing feeding.
LE swelling 2/2 hypoalbuminemia too
--- NOTE | 2024-09-11 12:49 | W.PN.ONC ---
Today's Communication / Plan
-
His performance status is very poor, precludes any cancer treatment, including Pluvicto, which he was hoping to get at [facility]
I explained that his weight loss and anorexia is due to his cancer; a feeding tube is not going to improve or prolong his life
The procedure itself is risky per GI
d/w Dr. Braga, who agrees that feeding tube is not appropriate/safe/indicated
Recommended hospice; he wants to just go home, but family is not able to care for him at home
Previously seen by palliative care
Impression
Impression
Left obstructive uropathy stone at [facility]
s/p Left percutaneous nephrostomy
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
Bilateral basilar pneumonia
emphysema, smoker, suspected COPD
hypocalcemia
cancer cachexia
Plan
Plan
His performance status is very poor, precludes any cancer treatment, including Pluvicto, which he was hoping to get at [facility]
I explained that his weight loss and anorexia is due to his cancer; a feeding tube is not going to improve or prolong his life
The procedure itself is risky per GI
d/w Dr. Braga, who agrees that feeding tube is not appropriate/safe/indicated
Recommended hospice; he wants to just go home, but family is not able to care for him at home
Previously seen by palliative care
Subjective/Objective
Subjective/Objective
asked to see patient again re: consideration for feeding tube
he's had ongoing weight loss, anorexia. No difficulty swallowing or obstruction
Vital Signs:
Vital Signs
Temp Pulse Resp BP Pulse Ox
97.3 F 99 18 119/73 98
09/11/24 11:56 09/11/24 11:56 09/11/24 11:56 09/11/24 11:56 09/11/24 11:56
Lab Results:
Laboratory Data
WBC 14.5 10^3/uL (4.8-10.8) H 09/11/24 06:35
Hgb 11.7 g/dL (13.0-18.0) L 09/11/24 06:35
Plt Count 148 10^3/uL (130-400) 09/11/24 06:35
PT 15.6 Sec (11.4-14.6) H 09/11/24 06:35
INR 1.21 09/11/24 06:35
eGFR 30.66 09/11/24 06:35
--- NOTE | 2024-09-11 13:12 | W.PN.UPDATE ---
Update Note
Progress Note Update
As per detailed discussion with GI, Oncology and family: with significant worsening of functional status - patient will not be a candidate for agressive treatmetn, most likely he is reaching terminal stage of his metastatic CA. In this case attempt
for artificial feeding will be futile. No PEG planned. Family and patient to discuss code, disposition and hospice internally and with hospice service.
--- NOTE | 2024-09-11 13:32 | CM ---
Chart reviewed and behavioral health case manager spoke with physician and order placed for hospice, hospice options reviewed and family selected [facility].
Plan; Referral sent to [facility].
--- NOTE | 2024-09-11 14:32 | W.PN.GI.CBS2 ---
Today's Communication / Plan
-
Hospice care as recommended by oncology
Assessment / Plan
-
Pt is a 74yo with hx prostate CA with prior prostatectomy/radiation, with mets bone and liver, COPD, HLD, CAD with prior AL/ TANYA, NSVT with recent concern for progression of metastatic disease. In review with family pt had prostatectomy in March
2018. He initially had radiation then around 2020 had mets to hip requiring radiation. He then had further progression on bone and live mets. Per patient he stopped chemo and was recommended follow up with Kapil to consider further type of '
liquid radiation ' per family. He now presents with shortness of breath with concern for rise increased on admission, K 6. He was also noted with new hydro with distal ureteral stent and placement of percutaneous nephrostomy tube with urology
following. Now asked to see from GI for continued wt loss about 100lb since diagnosis in 2018.
--failure to thrive with wt loss
-progression of metastatic prostate CA with bone and liver mets
--hiccups with eating
-obstructing nephrolithiasis with nephrostomy tube placement
-chronic steroid use
-leukocytosis
-RADHA on admission
-alternating diarrhea and constipation
other med problems:
-COPD
-HLD
-CAD with prior stent
-NSVT
PLAN:
I had a long discussion with patient/patient's family at bedside with regard to benefits and risk of PEG placement. We also discussed goals of care with primary medical team/oncology.
It was agreed at this point feeding tube is not appropriate considering patient's functional status and overall Poor prognosis. Family verbalized understanding.
Oncology recommends hospice care at this point (no further treatment)
will s/o
Total Time Spent with Patient (in minutes): 35
Subjective
Subjective
Date of Service: September 11, 2024
Patient is lethargic. Family at bedside
Objective
Data Reviewed
Laboratory Data:
Laboratory Results
09/11/24 06:35
09/11/24 06:35
Laboratory Results
PT 15.6 Sec (11.4-14.6) H 09/11/24 06:35
INR 1.21 09/11/24 06:35
Phosphorus 4.6 mg/dl (2.5-4.5) H 09/11/24 06:35
Magnesium 1.9 mg/dl (1.6-2.3) 09/11/24 06:35
Total Bilirubin 0.8 mg/dl (0.2-1.3) 09/11/24 06:35
AST 66 U/L (17-59) H 09/11/24 06:35
ALT 41 U/L (0-50) 09/11/24 06:35
Alkaline Phosphatase 206 U/L (38-126) H 09/11/24 06:35
Vital Signs and I&O:
Vital Signs
Temp Pulse Resp BP Pulse Ox
97.3 F 99 18 119/73 98
09/11/24 11:56 09/11/24 11:56 09/11/24 11:56 09/11/24 11:56 09/11/24 11:56
I&O
09/10/24 09/11/24 09/12/24
06:59 06:59 06:59
Intake Total 0 / 0 120 / 120
Output Total 670 / 670 650 / 650
Balance -670 / -670 -530 / -530
Physical Exam
Physical Exam
HEENT: Other (Lethargic)
GI: Soft and Non Distended
--- NOTE | 2024-09-11 14:34 | HOSPNOTE ---
Addendum entered by Delaney Turpin RN 09/11/24 14:51:
Bebe spoke to spouse. She asked for the day to process the information. She did share that she is unable to care for patient at home. She also stated code status decision is up to patient but also felt that he needed the day to process the
information as well. Bebe will follow up with patient and spouse tomorrow. More information to follow.
Original Note:
Hospice aware of referral. Will reach out to family to discuss. More information to follow.
[2024-09-11] MEDS: CELEXA PO (18:53)
[2024-09-11] MEDS: DELTASONE PO (20:09)
[2024-09-11] MEDS: OSCAL 500 + D PO (20:10)
[2024-09-11] MEDS: ATIVAN 0.5 MG PO (20:12)
--- NOTE | 2024-09-11 20:53 | W.PN.UPDATE ---
Update Note
Progress Note Update
Family at bedside and requested to change code status to DNR. Reviewed with the patient and family at bedside what is full/DNR code status. Patient agreed with the family decision to process to DNR.
Code status changed to DNR as requested.
[2024-09-11] MEDS: REMERON PO (21:18)
[2024-09-12 03:17] VITALS: BP 93/63
[2024-09-12 05:14] LABS: % Basophils 0.2 % (0-2); % Eosinophils 1.6 % (0-6); % Immature Granulocytes 0.6 % (0-0.5); % Lymphocytes 4.2 % (20.5-51.1); % Monocytes 4.7 % (1.7-9.3); % Neutrophils 88.7 % (42.2-75.2); Absolute Eosinophils 0.2 10^3/uL (0-0.7); Absolute Immature Granulocytes 0.1 10^3/uL (0-0.05); Absolute Lymphocytes 0.6 10^3/uL (1.2-3.4); Absolute Monocytes 0.7 10^3/uL (0.1-0.6); Absolute Neutrophils 12.6 10^3/uL (1.4-6.5); Hematocrit 33.5 % (39.0-52.0); Hemoglobin 11.7 g/dL (13.0-18.0); Mean Corp Hgb Conc. 34.9 g/dL (33.0-37.0); Mean Corpuscular Hgb 36.2 pg (27.0-31.0); Mean Corpuscular Volume 103.7 fL (80.0-94.0); Mean Platelet Volume 12.3 fL (7.4-10.4); Nucleated Red Blood Cells % 0 % (-); Platelet Count 154 10^3/uL (130-400); Red Blood Cell Count 3.23 10^6/uL (4.70-6.10); Red Cell Dist. Width 15.7 % (11.5-14.5); White Blood Cell Count 14.2 10^3/uL (4.8-10.8)
[2024-09-12 05:34] LABS: ALT (SGPT) 45 U/L (0-50); AST (SGOT) 73 U/L (17-59); Albumin 1.8 g/dl (3.5-5.0); Alkaline Phosphatase 187 U/L (38-126); Blood Urea Nitrogen 90 mg/dl (9-20); Calcium 7.4 mg/dl (8.4-10.2); Carbon Dioxide 22 mmol/L (22-30); Chloride 111 mmol/L (98-107); Estimated Creatinine Clearance 29 ml/min; Glucose 73 mg/dl (70-99); Potassium 4.8 mmol/L (3.5-5.1); Sodium 138 mmol/L (135-145); Total Bilirubin 0.9 mg/dl (0.2-1.3); Total Protein 3.8 g/dl (6.3-8.2); eGFR 32.42
[2024-09-12 05:41] LABS: NT-proBNP 1900 pg/ml
[2024-09-12 07:00] VITALS: BP 87/58
[2024-09-12] MEDS: SPIRIVA RESPIMAT 2.5 MCG 2 PUFF INH (07:56)
[2024-09-12] MEDS: HEPARIN SC (08:36)
[2024-09-12] MEDS: PROTONIX IV IV (08:36)
[2024-09-12] MEDS: B COMPLEX w/VITAMIN C PO (08:36)
[2024-09-12] MEDS: OSCAL 500 + D PO (08:36)
[2024-09-12] MEDS: NSS (PRESERVATIVE FREE) IV (08:36)
[2024-09-12] MEDS: ASPIR LOW (ENTERIC COATED) PO (08:36)
[2024-09-12] MEDS: DELTASONE PO (08:36)
[2024-09-12] MEDS: NICODERM TRANSDERMAL TRANSDERM (08:39)
--- NOTE | 2024-09-12 10:32 | W.PN.HOSP.TC ---
Today's Communication/Plan
-
NS bolus
family to discuss comfort care
Assessment / Plan
Assessment / Plan
73yo M with metastatic prostate CA, COPD, HLD, CAD s/p [place] came with worsening weakness and poor oral intake for past 3 weeks. Last chemo 3 weeks ago and PET showing significant disease progression. Found RADHA, UTI with L obstructing nephrolithiasis
s/p perc nephrostomy on the L on 09/01/24. Patient denies problem swallowing, describing lack of appetite as he cannot push anything to eat. Also concern for pneumonia on XR. Nephrostomy internalized the perc to nephroureteral stent, however
developed leakage around catheter, so planed to reverse to usual nephrostomy position on 09/11/24.
A/P:
#Asthenia with lack of appetite 2/2 termial CA
multifactorial, most likely due to metastatic CA, recent chemo with overall functional decline
Stress dose steroids did not help
Patient and family initially agreeable for alternative means of feeding, however As per detailed discussion with GI, Oncology and family: with significant worsening of functional status - patient will not be a candidate for aggressive treatment,
most likely he is reaching terminal stage of his metastatic CA. In this case attempt for artificial feeding will be futile. No PEG planned. Family and patient to discuss code, disposition and hospice internally and with hospice service.
Patient elected DNR overnight 09/12/24 and declining meds. Family discussing inpatient hospice/comfort care: explained in details bedside to that it will mean that we will not pursue any additional diagnostic tests, stop active medication with
exception of symptomatic mgmt of dyspnea, anxiety, constipation, dysuria She verbalized understaging and will discuss with family before making final decisions. Patient is too lethargic to reliably verbalize his choices at this time
#hypotension 2/2 dehydration
IVF
#RADHA on UTI with dehydration and L obstructing nephrolithiasis
#R renal atrophy
RADHA resolved
Abx completed
Bcx NTD
Ucx NTD
Urology consult: nephrostomy
IDAD: s/p nephrostomy on 09/01/24
Hold NSAIDs and ACEi
#leukocytosis
most likely 2/2 chronic steroids
ID consult: monitor off Abx
#hyperkalemia
2/2 RADHA
resolved
#B/L lower lobe pneumonia
completed Abx
Legionella neg
S.pneumonia urinary Ag neg
COVID-19 and Influenza PCR neg
#RUQ abdominal pain with extensive hepatic metastatic disease
#Elevated alk.phos - most likely 2/2 extensive bone metastasis
Follow LFT
US RUQ
ZOsyn
#AAA
4.0cm
outpatient follow up
#Prostate CA with extensive hepatic and osseous metastasis
#Protein calorie malnutrition
s/p chemo 3 weeks ago with resultant poor functional capacity and decline, suspect reaction to chemo
Onc consult
Increased steroids to stress dose to attempt to improve functioning and appetite
#Anxiety
#CAD stable
#Iscemic CM
#HLD
#COPD not in exacerbation
#ILD
cont home meds
DVT ppx hep
DNR/DNI
I have spent at least 56min reviewing chart, test results, communication with consultants and providing direct patient care
Anticipated Discharge: > 48 hours
Subjective/Interval History
-
Date of Service: September 12, 2024
Objective Data
-
Labs:
Laboratory Results
09/12/24
04:48
WBC 14.2 H
Hgb 11.7 L
Hct 33.5 L
Plt Count 154
Sodium 138
Potassium 4.8
Chloride 111 H
Carbon Dioxide 22
BUN 90 H
Creatinine 2.1 H
Glucose 73
Calcium 7.4 L
Total Bilirubin 0.9
AST 73 H
ALT 45
Alkaline Phosphatase 187 H
Vital Signs:
Vital Signs
Temp Pulse Resp BP Pulse Ox
97.9 F 68 16 87/58 98
09/12/24 07:00 09/12/24 07:56 09/12/24 07:56 09/12/24 07:00 09/12/24 07:00
I&O
09/11/24 09/12/24 09/13/24
06:59 06:59 06:59
Intake Total 120 / 120 0 / 0
Output Total 650 / 650 350 / 350
Balance -530 / -530 -350 / -350
Review of Systems
-
Unable to obtain full review of systems at this time due to: Acuity
Physical Exam
-
General: Cachectic
Respiratory: Clear to Auscultation
Cardiac: Regular Rhythm
Neuro: Other (lethargic)
Psych: Calm
[2024-09-12] MEDS: NSS 500 IV (10:52)
[2024-09-12 11:00] VITALS: BP 106/69
--- NOTE | 2024-09-12 11:32 | CM ---
Chart reviewed and referral sent to [facility] who are following patient and will see patient this morning for any changes and plan.
Plan; [facility] to see patient this morning, nursing aware.
--- NOTE | 2024-09-12 12:14 | HOSPNOTE ---
Spoke with spouse and patient to discuss hospice. the spouse stated that the daughters are coming this afternoon and they will have another family meeting. The patient stated he is short of breath I offered IV morphine the spouse declined and said
he is so awake he does not need medications. IV fluids are running and I discussed stopping the fluids and the spouse said no not yet. Not sure what the goal is and the spouse stated that she is unable to take him home even though patient voiced
that he would like to go home. The spouse has my information and will call me after the daughters are present and they have another family meeting. More information to follow, updated floor RN.
--- NOTE | 2024-09-12 14:03 | W.PN.UPDATE ---
Update Note
Progress Note Update
As per update from the marine steamfitter - family discussed and now all agreeable with hospice. Paperwork to be signed and patient to be admitted
--- NOTE | 2024-09-12 14:04 | W.DCSUMMARY ---
Discharge Summary
Discharge Data
Date of Admission: 09/01/24
Date of Discharge: 09/12/24
-
Pending Results: No
Hospital Course
73yo M with metastatic prostate CA, COPD, HLD, CAD s/p [place] came with worsening weakness and poor oral intake for past 3 weeks. Last chemo 3 weeks ago and PET showing significant disease progression. Found RADHA, UTI with L obstructing nephrolithiasis
s/p perc nephrostomy on the L on 09/01/24. Patient denies problem swallowing, describing lack of appetite as he cannot push anything to eat. Also concern for pneumonia on XR. Nephrostomy internalized the perc to nephroureteral stent, however
developed leakage around catheter, so planed to reverse to usual nephrostomy position on 09/11/24. Patient and family initially agreeable for alternative means of feeding, however As per detailed discussion with GI, Oncology and family: with
significant worsening of functional status - patient will not be a candidate for aggressive treatment, most likely he is reaching terminal stage of his metastatic CA. In this case attempt for artificial feeding will be futile. No PEG planned. Family
and patient to discuss code, disposition and hospice internally and with hospice service.
Patient elected DNR overnight 09/12/24 and declining meds. Family discussing inpatient hospice/comfort care: explained in details bedside to that it will mean that we will not pursue any additional diagnostic tests, stop active medication with
exception of symptomatic mgmt of dyspnea, anxiety, constipation, dysuria. She verbalized understaging and wagreeable to initiate inpatient hospice as per conversation with critical care educator.
I have spent at least 40min discharging the patient
Patient was managed for:
#Asthenia with lack of appetite 2/2 termial CA
#hypotension 2/2 dehydration
#RADHA on UTI with dehydration and L obstructing nephrolithiasis
#R renal atrophy
#leukocytosis
#hyperkalemia
#B/L lower lobe pneumonia
#RUQ abdominal pain with extensive hepatic metastatic disease
#Elevated alk.phos - most likely 2/2 extensive bone metastasis
#AAA
#Prostate CA with extensive hepatic and osseous metastasis
#Protein calorie malnutrition
#Anxiety
#CAD stable
#Iscemic CM
#HLD
#COPD not in exacerbation
#ILD
Discharge Plan
-
Instructions: How to care for a nephrostomy tube, Percutaneous nephrostomy
Referrals:
Fei Braga, [Family Provider] -
Elba Moe MD [Active] - As needed (If patient decided to follow up with Pulmonary clinic as out patient. )
Prescriptions:
No Action
Trelstar 22.5 MG suspension for reconstitution
22.5 mg IM [id number]
Xtandi 80 mg Tablet
80 mg PO BID
prednisone 5 mg Tablet
5 mg PO BID
Xgeva 120 mg/1.7 mL (70 mg/mL) Solution
120 mg SC QMONTH
calcium carbonate-vitamin D3 [Calcium + D] 600 mg-5 mcg (200 unit) Tablet
1 tab PO BID
aspirin 81 mg Tablet,Delayed Release (Dr/Ec)
81 mg PO DAILY
vitamin B complex Tablet
1 tab PO DAILY
citalopram 10 mg tablet
10 mg PO DAILY
Patient Comments:
patient's spouse says he is taking only one tab daily
lorazepam 0.5 mg Tablet
0.5 mg PO BID PRN (Reason: anxiety)
Discharge Date and Time
Print Language: FAROESE
--- NOTE | 2024-09-12 14:26 | HOSPNOTE ---
Patient will be inpatient hospice, consents are signed. Attending in agreement.
== END 2024-09-12 14:55 | disposition hospice, inpatient (51) | DRG 871 ==
LOC: 4 WEST ACU 14:17
PROVIDERS: Hospitalist; Internal Medicine; Nurse Practitioner Adult Health; Radiology Vascular & Interventional Radiology; ADMITTING PHYSICIAN Internal Medicine; ATTENDING PHYSICIAN Internal Medicine; CONSULT PHYSICIAN Internal Medicine; CONSULT PHYSICIAN Internal Medicine Gastroenterology; CONSULT PHYSICIAN Internal Medicine Hospice and Palliative Medicine; CONSULT PHYSICIAN Specialist; CONSULT PHYSICIAN Student in an Organized Health Care Education/Training Program; EMERGENCY PHYSICIAN Emergency Medicine; OTHER PHYSICIAN Internal Medicine Hematology & Oncology
PROC: 0T9130Z Drainage of Left Kidney with Drainage Device, Percutaneous Approach (ICD-10-PCS; 2024-09-01)
PROC: 0T773DZ Dilation of Left Ureter with Intraluminal Device, Percutaneous Approach (ICD-10-PCS; 2024-09-04)
PROC: 0T25X0Z Change Drainage Device in Kidney, External Approach (ICD-10-PCS; 2024-09-11)
DX: A41.9 Sepsis, unspecified organism (principal); E43 Unspecified severe protein-calorie malnutrition; J18.9 Pneumonia, unspecified organism; N17.9 Acute kidney failure, unspecified; N13.6 Pyonephrosis; C79.51 Secondary malignant neoplasm of bone; C78.7 Secondary malignant neoplasm of liver and intrahepatic bile duct; J44.0 Chronic obstructive pulmonary disease with (acute) lower respiratory infection; R64 Cachexia; R62.7 Adult failure to thrive; E87.5 Hyperkalemia; Z68.21 Body mass index [BMI] 21.0-21.9, adult; Z51.5 Encounter for palliative care; Z11.52 Encounter for screening for COVID-19; I71.43 Infrarenal abdominal aortic aneurysm, without rupture; C61 Malignant neoplasm of prostate; F41.9 Anxiety disorder, unspecified; F32.A Depression, unspecified; I25.10 Atherosclerotic heart disease of native coronary artery without angina pectoris; Z95.5 Presence of coronary angioplasty implant and graft; E78.00 Pure hypercholesterolemia, unspecified; Z66 Do not resuscitate; E86.0 Dehydration; I95.9 Hypotension, unspecified; L89.151 Pressure ulcer of sacral region, stage 1; L89.611 Pressure ulcer of right heel, stage 1; L89.621 Pressure ulcer of left heel, stage 1; F17.210 Nicotine dependence, cigarettes, uncomplicated; I12.9 Hypertensive chronic kidney disease with stage 1 through stage 4 chronic kidney disease, or unspecified chronic kidney disease; N18.32 Chronic kidney disease, stage 3b; Z79.82 Long term (current) use of aspirin; Z79.899 Other long term (current) drug therapy
CPT/HCPCS: 50432; 50434; 50435; 70450; 71045; 71046; 74176; 76700; 80048; 80053; 81003; 81015; 82140; 82306; 82330; 82962; 83735; 83880; 84100; 84132; 84443; 85025; 85027; 85610; 87040; 87070; 87086; 87205; 87449; 87502; 87811; 87899; 93005; 94640; 96361; 96374; 96375; 97163; 97167; 97530; 99152; 99153; 99291; C1729; C1769

== ENCOUNTER 2024-09-12 14:55 | Inpatient (IN) | payer OTHER, SELFPAY ==
--- NOTE | 2024-09-12 14:27 | HOSPNOTE ---
Patient will be inpatient hospice for pain management and shortness of breath and anxiety. Attending will discharge the chart and begin the hospice chart. Patient and family in agreement with hospice and the philosophy. Admissions called and will
admit onto hospice and asked for a bed on [facility].
--- NOTE | 2024-09-12 15:01 | HPS.HSE ---
Family Physician
-
Family Physician: NOT KNOW UNKNOWN - PT DOES
Chief Complaint
-
weakness
History of Present Illness
73yo M with metastatic prostate CA, COPD, HLD, CAD s/p [place] came with worsening weakness and poor oral intake for past 3 weeks. Last chemo 3 weeks ago and PET showing significant disease progression. Found RADHA, UTI with L obstructing nephrolithiasis
s/p perc nephrostomy on the L on 09/01/24. Patient denies problem swallowing, describing lack of appetite as he cannot push anything to eat. Also concern for pneumonia on XR. Nephrostomy internalized the perc to nephroureteral stent, however
developed leakage around catheter, so planed to reverse to usual nephrostomy position on 09/11/24. Patient and family initially agreeable for alternative means of feeding, however As per detailed discussion with GI, Oncology and family: with
significant worsening of functional status - patient will not be a candidate for aggressive treatment, most likely he is reaching terminal stage of his metastatic CA. In this case attempt for artificial feeding will be futile. No PEG planned. Family
and patient to discuss code, disposition and hospice internally and with hospice service.
Patient elected DNR overnight 09/12/24 and declining meds. Family discussing inpatient hospice/comfort care: explained in details bedside to that it will mean that we will not pursue any additional diagnostic tests, stop active medication with
exception of symptomatic mgmt of dyspnea, anxiety, constipation, dysuria. She verbalized understaging and wagreeable to initiate inpatient hospice as per conversation with human resources office assistant.
Medical History
Past Medical History
Past Medical History: Reports Other
Additional Past Medical History:
see HPI
Past Surgical History: Reports Other
Additional Past Surgical History:
See HPI
Social History
Tobacco: Non-smoker
Alcohol: None
Drug: None
Family History
Family History: Not pertinent
Allergies / Home Medications
Allergies reflects when Allergies were last updated in [employer].
Home Medications with original date entered in [employer]
Allergy/Medication List:
Allergies
Allergy/AdvReac Type Severity Reaction Status Date / Time
adhesive tape [Adhesive Tape] Allergy Has not Verified 10/11/23 17:18
happened
since 2013
No current medications
Review of Systems
-
Unable to obtain full review of systems at this time due to: Acuity
History Source: Patient and Family
A 12 point ROS was completed and negative except as noted: Yes
Constitutional: Reports Fatigue
EENT: Reports No Symptoms
Respiratory: Reports Trouble Breathing
Abdomen/GI: Reports Abdominal Pain
Physical Exam
Physical Exam
General: Conversant, Poor Appetite and Cachectic
HEENT: NormoCephalic, Anicteric and Moist mucous membranes
Respiratory: Clear; No Wheezes or Rales
Cardiac: S1/S2 and Regular Rhythm; No Tachycardia
GI: Soft, Non Distended and Tender (RUQ)
Genito-urinary: No costovertebral tender
Musculoskeletal: No Clubbing, Cyanosis (all extremities), Edema, Left Lower Extremity and Edema, Right Lower Extremity
Neuro: Awake, Alert and Oriented
Psych: Calm and Confused
Data Reviewed
-
Lab Data: Labs Reviewed by me
Impression/Plan
-
#Asthenia with lack of appetite 2/2 termial CA
#hypotension 2/2 dehydration
#RADHA on UTI with dehydration and L obstructing nephrolithiasis
#R renal atrophy
#leukocytosis
#hyperkalemia
#B/L lower lobe pneumonia
#RUQ abdominal pain with extensive hepatic metastatic disease
#Elevated alk.phos - most likely 2/2 extensive bone metastasis
#AAA
#Prostate CA with extensive hepatic and osseous metastasis
#Protein calorie malnutrition
#Anxiety
#CAD stable
#Iscemic CM
#HLD
#COPD not in exacerbation
#ILD
Morphine for dyspnea, progress to drip if needed
Ativan for agitation
Manage fever, constipation as needed
Hospice comfort care
avoid diagnostic tests
DVT ppx not needed
DNR/DNI
I have spent at least 44min preparing admission
[2024-09-12 16:12] VITALS: BMI 21.6
--- NOTE | 2024-09-12 16:30 | PTCARENOTE ---
Patient admitted to [facility]. Report from Shaista GOMEZ. Chart flipped. Patient and family updated on hospice measures and PRN medication ordered. Patient denies pain at this time. Call bailey within reach.
[2024-09-12 16:38] VITALS: BP 96/65
[2024-09-12 21:00] VITALS: BP 90/57
[2024-09-13] MEDS: NSS (PRESERVATIVE FREE) 10 ML IV (02:22)
[2024-09-13] MEDS: MORPHINE SULFATE 1 MG IV ×4 (02:23→20:22)
[2024-09-13] MEDS: ATIVAN 0.5 MG IV ×2 (02:23→11:23)
[2024-09-13 07:55] VITALS: BP 111/73
--- NOTE | 2024-09-13 10:44 | HOSPNOTE ---
Technical Support Engineer visited 73 year old patient to conduct Initial STATISTICS TUTOR Assessment. Patient admitted onto [facility] with the Primary Diagnosis of Prostate Cancer. STATISTICS TUTOR knocked on patient's door and greeted patient's
spouse Marilin and introduced herself. Patient lying in bed and appears to be resting comfortably. Patient did not appear to be in pain or distress. STATISTICS TUTOR greeted patient and no response. Spouse reported patient better today and back to himself. Spouse
reported patient was mean and nasty yesterday and demanded family to leave and he did not want to remain in the hospital and wanted to at home. Spouse reported the family wasn't able to properly care for patient at home. Spouse reported patient
is comfortable and pain free and that's want they want for him. Spouse reported they have been for 53 years and met in [place] when kids use to drive around the block in the hot cars. Patient woke up and STATISTICS TUTOR greeted patient, patient
responded hi. 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 Patient reported his goal was to travel to all states and he did that. Patient reported he drove over 4 million miles. Patient enjoyed brenda, traveling, playing pool,
video games, and watching baseball and football with his grandchildren. STATISTICS TUTOR patient if he wanted anything, patient responded a gianni. Spouse reported patient is a Hernando Mejia man. Patient has 2 daughters Aminata and Susie who visit
frequently and 6 grandchildren. Spouse reported daughters will visit this afternoon. Patient has 2 brothers 1 estranged due to family issues and Rasheed who visits frequently. Family is active and supportive in patent's care. Spouse reported patient
has been ill for a while and they are doing the best they can as their daughter wrote down all of patient's wishes. Spouse reported patient refused to eat upstairs and has eaten a Jell-o and drink boost and bottled water because they have well water
at home and says the tap water is city water and he doesn't like it. Patient doesn't have a judaism, however believes in God; no latter-day affiliation. Patient wishes to be buried and family utilizing [facility], [place], and
burial will be at [facility] in [place]. Patient's Physician can him to assess patient and didn't disturb him as he was asleep. Physician reported he and nurses will visit patient daily. Nurse reported patient is resting and reported he did
not need anything, no concerns.
Patient in and out of sleep throughout this visit. Prayer and Emotional Support Provided.
Patient meets GIP criteria for SN assessments, management of pain, shortness of breath, and anxiety that could not be managed at home and/or in an Outpatient setting. Discharge planning continues.
STATISTICS TUTOR continue to visit once a week while on GIP Level of Care to provide supportive services and monitor for additional services.
--- NOTE | 2024-09-13 10:51 | W.PN.HOSP.TC ---
Today's Communication/Plan
-
hospice care
Assessment / Plan
Assessment / Plan
73yo M with metastatic prostate CA, COPD, HLD, CAD s/p [place] came with worsening weakness and poor oral intake for past 3 weeks. Last chemo 3 weeks ago and PET showing significant disease progression. Found RADHA, UTI with L obstructing nephrolithiasis
s/p perc nephrostomy on the L on 09/01/24. Patient denies problem swallowing, describing lack of appetite as he cannot push anything to eat. Also concern for pneumonia on XR. Nephrostomy internalized the perc to nephroureteral stent, however
developed leakage around catheter, so planed to reverse to usual nephrostomy position on 09/11/24. Patient and family initially agreeable for alternative means of feeding, however As per detailed discussion with GI, Oncology and family: with
significant worsening of functional status - patient will not be a candidate for aggressive treatment, most likely he is reaching terminal stage of his metastatic CA. In this case attempt for artificial feeding will be futile. No PEG planned. Family
and patient to discuss code, disposition and hospice internally and with hospice service.
Patient elected DNR overnight 09/12/24 and declining meds. Family discussing inpatient hospice/comfort care: explained in details bedside to that it will mean that we will not pursue any additional diagnostic tests, stop active medication with
exception of symptomatic mgmt of dyspnea, anxiety, constipation, dysuria. She verbalized understaging and wagreeable to initiate inpatient hospice as per conversation with bleach chlorinator.
#Asthenia with lack of appetite 2/2 termial CA
#hypotension 2/2 dehydration
#RADHA on UTI with dehydration and L obstructing nephrolithiasis
#R renal atrophy
#leukocytosis
#hyperkalemia
#B/L lower lobe pneumonia
#RUQ abdominal pain with extensive hepatic metastatic disease
#Elevated alk.phos - most likely 2/2 extensive bone metastasis
#AAA
#Prostate CA with extensive hepatic and osseous metastasis
#Protein calorie malnutrition
#Anxiety
#CAD stable
#Ischemic CM
#HLD
#COPD not in exacerbation
#ILD
Morphine for dyspnea, progress to drip if needed
Ativan for agitation
Manage fever, constipation as needed
Hospice comfort care
avoid diagnostic tests
DVT ppx not needed
DNR/DNI
I have spent at least 35min reviewing chart, communicagtion with dfamily and consultants and providing direct patient care
Anticipated Discharge: > 48 hours
Subjective/Interval History
-
Date of Service: September 13, 2024
Objective Data
-
Vital Signs:
Vital Signs
Temp Pulse Resp BP Pulse Ox
98.9 F 84 17 111/73 97
09/13/24 07:55 09/13/24 07:55 09/13/24 07:55 09/13/24 07:55 09/13/24 07:55
I&O
09/12/24 09/13/24 09/14/24
06:59 06:59 06:59
Intake Total 480 / 480
Output Total 75 / 75
Balance 405 / 405
Review of Systems
-
History Source: Patient
All other systems: Reviewed and negative
Physical Exam
-
General: No Apparent Distress and Comfortable
Neuro: Other (sleeping)
Psych: Calm
[2024-09-13] MEDS: NSS (PRESERVATIVE FREE) 0.25 ML IV (11:23)
--- NOTE | 2024-09-13 13:22 | HOSPNOTE ---
Spouse was bedside and patient stated that his pain was 4/10 and requested morphine. All questions were answered and patient continues to be inpatient hospice for management of shortness of breath, anxiety and pain. Patient will be seen daily.
--- NOTE | 2024-09-13 14:25 | CM ---
Pt admitted for GIP Hospice
[facility] following
CM remains available for pt/family
Plan - GIP hospice
[2024-09-13] MEDS: ROBINUL 0.2 MG IV (21:07)
[2024-09-13 23:37] VITALS: BP 127/92
[2024-09-14] MEDS: NSS (PRESERVATIVE FREE) 10 ML IV (02:18)
[2024-09-14] MEDS: ATIVAN 0.5 MG IV ×2 (02:18→10:18)
[2024-09-14 07:10] VITALS: BP 89/66
--- NOTE | 2024-09-14 09:10 | CM ---
Chart reviewed. Pt admitted for GIP Hospice
[facility] following
CM remains available for pt/family
Plan: GIP hospice
[2024-09-14] MEDS: ROBINUL 0.2 MG IV (10:17)
[2024-09-14] MEDS: NSS (PRESERVATIVE FREE) 0.5 ML IV (10:18)
--- NOTE | 2024-09-14 13:24 | HOSPNOTE ---
Patient remains inpatient appropriate for pain, shortness of breath and agitation. Patient is transitioning and nail beds are cyanotic, emotional support provided to family. I discussed with family if patient requires medications per our assessment
the patient will receive medications. Our goal is that the patient passes peacefully. Please medicate prior to any care or repositioning and when patient requires. Patient will be seen daily.
--- NOTE | 2024-09-14 13:54 | W.PN.HOSP.TC ---
Today's Communication/Plan
-
cont hospice care
Assessment / Plan
Assessment / Plan
73yo M with metastatic prostate CA, COPD, HLD, CAD s/p [place] came with worsening weakness and poor oral intake for past 3 weeks. Last chemo 3 weeks ago and PET showing significant disease progression. Found RADHA, UTI with L obstructing nephrolithiasis
s/p perc nephrostomy on the L on 09/01/24. Patient denies problem swallowing, describing lack of appetite as he cannot push anything to eat. Also concern for pneumonia on XR. Nephrostomy internalized the perc to nephroureteral stent, however
developed leakage around catheter, so planed to reverse to usual nephrostomy position on 09/11/24. Patient and family initially agreeable for alternative means of feeding, however As per detailed discussion with GI, Oncology and family: with
significant worsening of functional status - patient will not be a candidate for aggressive treatment, most likely he is reaching terminal stage of his metastatic CA. In this case attempt for artificial feeding will be futile. No PEG planned. Family
and patient to discuss code, disposition and hospice internally and with hospice service.
Patient elected DNR overnight 09/12/24 and declining meds. Family discussing inpatient hospice/comfort care: explained in details bedside to that it will mean that we will not pursue any additional diagnostic tests, stop active medication with
exception of symptomatic mgmt of dyspnea, anxiety, constipation, dysuria. She verbalized understaging and wagreeable to initiate inpatient hospice as per conversation with vp marketing.
#Asthenia with lack of appetite 2/2 termial CA
#hypotension 2/2 dehydration
#RADHA on UTI with dehydration and L obstructing nephrolithiasis
#R renal atrophy
#leukocytosis
#hyperkalemia
#B/L lower lobe pneumonia
#RUQ abdominal pain with extensive hepatic metastatic disease
#Elevated alk.phos - most likely 2/2 extensive bone metastasis
#AAA
#Prostate CA with extensive hepatic and osseous metastasis
#Protein calorie malnutrition
#Anxiety
#CAD stable
#Ischemic CM
#HLD
#COPD not in exacerbation
#ILD
Morphine for dyspnea, progress to drip if needed
Ativan for agitation
Manage fever, constipation as needed
Hospice comfort care
avoid diagnostic tests
DVT ppx not needed
DNR/DNI
I have spent at least 35min reviewing chart, communicagtion with dfamily and consultants and providing direct patient care
Anticipated Discharge: > 48 hours
Subjective/Interval History
-
Date of Service: September 14, 2024
Objective Data
-
Vital Signs:
Vital Signs
Temp Pulse Resp BP Pulse Ox
97.5 F 84 16 89/66 84
09/14/24 07:10 09/14/24 07:10 09/14/24 07:10 09/14/24 07:10 09/14/24 07:10
I&O
09/13/24 09/14/24 09/15/24
06:59 06:59 06:59
Intake Total 480 / 480 80 / 80
Output Total 75 / 75 700 / 700
Balance 405 / 405 -620 / -620
Review of Systems
-
Unable to obtain full review of systems at this time due to: Acuity
Physical Exam
-
General: No Apparent Distress and Comfortable
Neuro: Sedated
Psych: Calm
[2024-09-14] MEDS: MORPHINE SULFATE 1 MG IV ×2 (17:17→20:46)
[2024-09-14 20:35] VITALS: BP 108/71
[2024-09-15] MEDS: ATIVAN 0.5 MG IV (02:08)
[2024-09-15] MEDS: MORPHINE SULFATE 1 MG IV ×3 (02:09→19:58)
[2024-09-15] MEDS: NSS (PRESERVATIVE FREE) 0.25 ML IV (02:09)
[2024-09-15 08:15] VITALS: BP 92/62
--- NOTE | 2024-09-15 10:41 | W.PN.HOSP.TC ---
Today's Communication/Plan
-
cont hospice care
Assessment / Plan
Assessment / Plan
73yo M with metastatic prostate CA, COPD, HLD, CAD s/p [place] came with worsening weakness and poor oral intake for past 3 weeks. Last chemo 3 weeks ago and PET showing significant disease progression. Found RADHA, UTI with L obstructing nephrolithiasis
s/p perc nephrostomy on the L on 09/01/24. Patient denies problem swallowing, describing lack of appetite as he cannot push anything to eat. Also concern for pneumonia on XR. Nephrostomy internalized the perc to nephroureteral stent, however
developed leakage around catheter, so planed to reverse to usual nephrostomy position on 09/11/24. Patient and family initially agreeable for alternative means of feeding, however As per detailed discussion with GI, Oncology and family: with
significant worsening of functional status - patient will not be a candidate for aggressive treatment, most likely he is reaching terminal stage of his metastatic CA. In this case attempt for artificial feeding will be futile. No PEG planned. Family
and patient to discuss code, disposition and hospice internally and with hospice service.
Patient elected DNR overnight 09/12/24 and declining meds. Family discussing inpatient hospice/comfort care: explained in details bedside to that it will mean that we will not pursue any additional diagnostic tests, stop active medication with
exception of symptomatic mgmt of dyspnea, anxiety, constipation, dysuria. She verbalized understaging and wagreeable to initiate inpatient hospice as per conversation with hospice clinical supervisor.
#Asthenia with lack of appetite 2/2 termial CA
#hypotension 2/2 dehydration
#RADHA on UTI with dehydration and L obstructing nephrolithiasis
#R renal atrophy
#leukocytosis
#hyperkalemia
#B/L lower lobe pneumonia
#RUQ abdominal pain with extensive hepatic metastatic disease
#Elevated alk.phos - most likely 2/2 extensive bone metastasis
#AAA
#Prostate CA with extensive hepatic and osseous metastasis
#Protein calorie malnutrition
#Anxiety
#CAD stable
#Ischemic CM
#HLD
#COPD not in exacerbation
#ILD
Morphine for dyspnea, progress to drip if needed
Ativan for agitation
Manage fever, constipation as needed
Hospice comfort care
avoid diagnostic tests
DVT ppx not needed
DNR/DNI
I have spent at least 35min reviewing chart, communicagtion with dfamily and consultants and providing direct patient care
Anticipated Discharge: > 48 hours
Subjective/Interval History
-
Date of Service: September 15, 2024
Objective Data
-
Vital Signs:
Vital Signs
Temp Pulse Resp BP Pulse Ox
97.7 F 95 14 92/62 97
09/15/24 08:15 09/15/24 08:15 09/15/24 08:15 09/15/24 08:15 09/15/24 08:15
I&O
09/14/24 09/15/24 09/16/24
06:59 06:59 06:59
Intake Total 80 / 80 120 / 120
Output Total 700 / 700 650 / 650
Balance -620 / -620 -530 / -530
Review of Systems
-
Unable to obtain full review of systems at this time due to: Acuity
Physical Exam
-
General: No Apparent Distress and Comfortable
Psych: Calm
--- NOTE | 2024-09-15 12:13 | HOSPNOTE ---
Patient remains GIP level of care requiring Ativan IV x 3 Morphine IV x 3 and Robinul. Patient is restless and fidgeting, looking for teeth, but refusing to put them in when got them for him. Unable to focus for any length of time. Cyanotic
and nail beds are dark and dusky. Respirations shallow and lung sounds diminished. at bedside states she is at peace with patient dying as they fought for years and now it is up to god.
--- NOTE | 2024-09-15 15:19 | VATNOTE ---
Due for port re-access today, refused. Patient is EOL
[2024-09-15] MEDS: ROBINUL 0.2 MG IV (19:58)
[2024-09-15 23:30] VITALS: BP 107/67
[2024-09-16] MEDS: ATIVAN 0.5 MG IV ×3 (05:19→16:47)
[2024-09-16] MEDS: MORPHINE SULFATE 1 MG IV ×4 (05:20→23:11)
[2024-09-16] MEDS: NSS (PRESERVATIVE FREE) 0.125 ML IV (05:20)
[2024-09-16 07:32] VITALS: BP 114/71
--- NOTE | 2024-09-16 09:55 | HOSPNOTE ---
Patient remains GIP appropriate level of care. Patient received Morphine IV x 4 and Ativan IV x 1 in last 24 hours. Pain is managed with IV Morphine. Patient nail beds are dark dusky, knees and feet are mottling. Patient is not eating. at
bedside support provided to patient and .
--- NOTE | 2024-09-16 11:07 | W.PN.HOSP.TC ---
Today's Communication/Plan
-
cont hospice care
Assessment / Plan
Assessment / Plan
73yo M with metastatic prostate CA, COPD, HLD, CAD s/p [place] came with worsening weakness and poor oral intake for past 3 weeks. Last chemo 3 weeks ago and PET showing significant disease progression. Found RADHA, UTI with L obstructing nephrolithiasis
s/p perc nephrostomy on the L on 09/01/24. Patient denies problem swallowing, describing lack of appetite as he cannot push anything to eat. Also concern for pneumonia on XR. Nephrostomy internalized the perc to nephroureteral stent, however
developed leakage around catheter, so planed to reverse to usual nephrostomy position on 09/11/24. Patient and family initially agreeable for alternative means of feeding, however As per detailed discussion with GI, Oncology and family: with
significant worsening of functional status - patient will not be a candidate for aggressive treatment, most likely he is reaching terminal stage of his metastatic CA. In this case attempt for artificial feeding will be futile. No PEG planned. Family
and patient to discuss code, disposition and hospice internally and with hospice service.
Patient elected DNR overnight 09/12/24 and declining meds. Family discussing inpatient hospice/comfort care: explained in details bedside to that it will mean that we will not pursue any additional diagnostic tests, stop active medication with
exception of symptomatic mgmt of dyspnea, anxiety, constipation, dysuria. She verbalized understaging and wagreeable to initiate inpatient hospice as per conversation with commercial horticulture instructor.
#Asthenia with lack of appetite 2/2 termial CA
#hypotension 2/2 dehydration
#RADHA on UTI with dehydration and L obstructing nephrolithiasis
#R renal atrophy
#leukocytosis
#hyperkalemia
#B/L lower lobe pneumonia
#RUQ abdominal pain with extensive hepatic metastatic disease
#Elevated alk.phos - most likely 2/2 extensive bone metastasis
#AAA
#Prostate CA with extensive hepatic and osseous metastasis
#Protein calorie malnutrition
#Anxiety
#CAD stable
#Ischemic CM
#HLD
#COPD not in exacerbation
#ILD
Morphine for dyspnea, progress to drip if needed
Ativan for agitation
Manage fever, constipation as needed
Hospice comfort care
avoid diagnostic tests
DVT ppx not needed
DNR/DNI
I have spent at least 35min reviewing chart, communicagtion with dfamily and consultants and providing direct patient care
Anticipated Discharge: > 48 hours
Subjective/Interval History
-
Date of Service: September 16, 2024
Objective Data
-
Vital Signs:
Vital Signs
Temp Pulse Resp BP Pulse Ox
97.2 F 78 18 114/71 94
09/16/24 07:32 09/16/24 07:32 09/16/24 07:32 09/16/24 07:32 09/16/24 07:32
I&O
09/15/24 09/16/24 09/17/24
06:59 06:59 06:59
Intake Total 120 / 120 100 / 100
Output Total 650 / 650 500 / 500
Balance -530 / -530 -400 / -400
Review of Systems
-
History Source: Family
Physical Exam
-
General: No Apparent Distress and Comfortable
Neuro: Other (lethargic)
Psych: Calm
[2024-09-16] MEDS: NSS (PRESERVATIVE FREE) 0.25 ML IV (11:17)
[2024-09-16] MEDS: FLUSH (NSS) 2 FLUSH IV (16:47)
[2024-09-16 19:10] VITALS: BP 106/68
[2024-09-17] MEDS: NSS (PRESERVATIVE FREE) 0.125 ML IV (04:58)
[2024-09-17] MEDS: ATIVAN 0.5 MG IV ×3 (04:59→14:10)
[2024-09-17] MEDS: MORPHINE SULFATE 1 MG IV ×4 (04:59→11:11)
[2024-09-17 07:10] VITALS: BP 105/74
--- NOTE | 2024-09-17 08:13 | W.PN.HOSP.TC ---
Today's Communication/Plan
-
Comfort care
Assessment / Plan
Assessment / Plan
Limited Physical exam Comfort measures
General: no acute distress appears comfortable
Pulm: stable non-labored respiration on room air
Neuro: sleeping
A/P:
73yo M with metastatic prostate CA, COPD, HLD, CAD s/p [place] came with worsening weakness and poor oral intake for past 3 weeks. Last chemo 3 weeks ago and PET showing significant disease progression. Found RADHA, UTI with L obstructing nephrolithiasis
s/p perc nephrostomy on the L on 09/01/24. Patient denies problem swallowing, describing lack of appetite as he cannot push anything to eat. Also concern for pneumonia on XR. Nephrostomy internalized the perc to nephroureteral stent, however
developed leakage around catheter, so planed to reverse to usual nephrostomy position on 09/11/24. Patient and family initially agreeable for alternative means of feeding, however As per detailed discussion with GI, Oncology and family: with
significant worsening of functional status - patient will not be a candidate for aggressive treatment, most likely he is reaching terminal stage of his metastatic CA. In this case attempt for artificial feeding will be futile. No PEG planned. Family
and patient to discuss code, disposition and hospice internally and with hospice service.
Patient elected DNR overnight 09/12/24 and declining meds. Family discussing inpatient hospice/comfort care: explained in details bedside to that it will mean that we will not pursue any additional diagnostic tests, stop active medication with
exception of symptomatic mgmt of dyspnea, anxiety, constipation, dysuria. She verbalized understaging and wagreeable to initiate inpatient hospice as per conversation with materials branch chief.
#Asthenia with lack of appetite 2/2 termial CA
#hypotension 2/2 dehydration
#RADHA on UTI with dehydration and L obstructing nephrolithiasis
#R renal atrophy
#leukocytosis
#hyperkalemia
#B/L lower lobe pneumonia
#RUQ abdominal pain with extensive hepatic metastatic disease
#Elevated alk.phos - most likely 2/2 extensive bone metastasis
#AAA
#Prostate CA with extensive hepatic and osseous metastasis
#Protein calorie malnutrition
#Anxiety
#CAD stable
#Ischemic CM
#HLD
#COPD not in exacerbation
#ILD
Morphine for dyspnea, progress to drip if needed
Ativan for agitation
Manage fever, constipation as needed
Hospice comfort care
avoid diagnostic tests
DVT ppx not indicated
DNR/DNI
I spent a total of 35 minutes with the patient or on the floor. More than 50% of this time involved counseling and coordination of care.
Anticipated Discharge: 24 - 48 hours
Subjective/Interval History
-
Date of Service: September 17, 2024
Minimally responsive
Objective Data
-
Vital Signs:
Vital Signs
Temp Pulse Resp BP Pulse Ox
97.4 F 101 14 105/74 100
09/17/24 07:10 09/17/24 07:10 09/17/24 07:10 09/17/24 07:10 09/17/24 07:10
I&O
09/16/24 09/17/24 09/18/24
06:59 06:59 06:59
Intake Total 100 / 100 0 / 0
Output Total 500 / 500 225 / 225
Balance -400 / -400 -225 / -225
[2024-09-17] MEDS: ROBINUL 0.2 MG IV ×3 (08:30→21:46)
[2024-09-17] MEDS: NSS (PRESERVATIVE FREE) 0.5 ML IV (09:57)
--- NOTE | 2024-09-17 10:01 | HOSPNOTE ---
Patient continues to be inpatient level of care for pain and anxiety management that could not be managed in an outside setting. Patient continues to receive pain medication IV. Nails beds are dusky and cyanotic and mottling present bilateral
extremities. Patient appears to be transitioning. Spoke with nurse and asked to please medicate prior to any care of positioning.
--- NOTE | 2024-09-17 10:57 | CM ---
Chart reviewed
Pt GIP hospice. Hospice cont to follow
CM available as needed for pt/family
Plan - GIP Hospice
[2024-09-17] MEDS: MORPHINE 100 IV (11:29)
[2024-09-17] MEDS: MORPHINE SULFATE 2 MG IV ×2 (14:11→15:51)
[2024-09-17] MEDS: NSS (PRESERVATIVE FREE) 0.25 ML IV (14:12)
[2024-09-17 19:58] VITALS: BP 79/55
[2024-09-18] MEDS: ATIVAN 0.5 MG IV
[2024-09-18] MEDS: ROBINUL 0.2 MG IV ×3 (02:33→10:08)
[2024-09-18] MEDS: MORPHINE SULFATE 2 MG IV ×7 (02:34→11:40)
[2024-09-18] MEDS: FLUSH (NSS) 1 FLUSH IV (05:13)
[2024-09-18 07:35] VITALS: BP 80/51
--- NOTE | 2024-09-18 08:36 | W.PN.HOSP.TC ---
Today's Communication/Plan
-
Comfort care
Assessment / Plan
Assessment / Plan
Limited Physical exam Comfort measures
General: no acute distress appears comfortable
Pulm: stable non-labored respiration on room air
Neuro: lethargic, unresponsive
A/P:
73yo M with metastatic prostate CA, COPD, HLD, CAD s/p [place] came with worsening weakness and poor oral intake for past 3 weeks. Last chemo 3 weeks ago and PET showing significant disease progression. Found RAHDA, UTI with L obstructing nephrolithiasis
s/p perc nephrostomy on the L on 09/01/24. Patient denies problem swallowing, describing lack of appetite as he cannot push anything to eat. Also concern for pneumonia on XR. Nephrostomy internalized the perc to nephroureteral stent, however
developed leakage around catheter, so planed to reverse to usual nephrostomy position on 09/11/24. Patient and family initially agreeable for alternative means of feeding, however As per detailed discussion with GI, Oncology and family: with
significant worsening of functional status - patient will not be a candidate for aggressive treatment, most likely he is reaching terminal stage of his metastatic CA. In this case attempt for artificial feeding will be futile. No PEG planned. Family
and patient to discuss code, disposition and hospice internally and with hospice service.
Patient elected DNR overnight 09/12/24 and declining meds. Family discussing inpatient hospice/comfort care: explained in details bedside to that it will mean that we will not pursue any additional diagnostic tests, stop active medication with
exception of symptomatic mgmt of dyspnea, anxiety, constipation, dysuria. She verbalized understaging and wagreeable to initiate inpatient hospice as per conversation with hospice consultant.
#Asthenia with lack of appetite 2/2 termial CA
#hypotension 2/2 dehydration
#RADHA on UTI with dehydration and L obstructing nephrolithiasis
#R renal atrophy
#leukocytosis
#hyperkalemia
#B/L lower lobe pneumonia
#RUQ abdominal pain with extensive hepatic metastatic disease
#Elevated alk.phos - most likely 2/2 extensive bone metastasis
#AAA
#Prostate CA with extensive hepatic and osseous metastasis
#Protein calorie malnutrition
#Anxiety
#CAD stable
#Ischemic CM
#HLD
#COPD not in exacerbation
#ILD
Morphine for dyspnea, progress to drip if needed
Ativan for agitation
Manage fever, constipation as needed
Hospice comfort care
avoid diagnostic tests
Currently on morphine drip
Discussed with and son at bedside today
DVT ppx not indicated
DNR/DNI
I spent a total of 35 minutes with the patient or on the floor. More than 50% of this time involved counseling and coordination of care.
Anticipated Discharge: Within 24 hours
Subjective/Interval History
-
Date of Service: September 18, 2024
Patient minimally responsive
Objective Data
-
Vital Signs:
Vital Signs
Temp Pulse Resp BP Pulse Ox
97.4 F 117 16 80/51 89
09/18/24 07:35 09/18/24 07:35 09/18/24 07:35 09/18/24 07:35 09/18/24 07:35
I&O
09/17/24 09/18/24 09/19/24
06:59 06:59 06:59
Intake Total 0 / 0 0 / 0
Output Total 225 / 225
Balance -225 / -225 0 / 0
--- NOTE | 2024-09-18 11:11 | HOSPNOTE ---
Patient is imminent. Emotional support provided to family.
--- NOTE | 2024-09-18 11:17 | CM ---
Chart reviewed
[facility] following - Remains [facility]
Plan - [facility]
[2024-09-18] MEDS: MORPHINE SULFATE 4 MG IV ×3 (14:06→16:31)
--- NOTE | 2024-09-18 16:52 | PTCARENOTE ---
Patient found with no spontaneous heart sounds or respirations; family at bedside; MD notified.
--- NOTE | 2024-09-18 17:08 | W.PN.DEATH ---
Pronouncement of
-
Called to see patient to pronounce.
No spontaneous heart tones or respirations noted.
Patient not responsive to verbal stimuli.
Patient is pronounced .
Time of : 16:52
Date of : 09/18/24
Cause of : metastatic prostate carcinoma
Acute kidney injury
Family Notified: Yes (Spouse and daughter at bedside. Expressed my condolences. )
--- NOTE | 2024-09-18 17:28 | W.DCSUMMARY ---
Discharge Summary
Discharge Data
Date of Admission: 09/12/24
Date of Discharge: 09/18/24
-
Pending Results: No
Hospital Course
73yo M with metastatic prostate CA, COPD, HLD, CAD s/p FL came with worsening weakness and poor oral intake for past 3 weeks. Last chemo 3 weeks ago and PET showing significant disease progression. Found RADHA, UTI with L obstructing nephrolithiasis
s/p perc nephrostomy on the L on 09/01/24. Patient denies problem swallowing, describing lack of appetite as he cannot push anything to eat. Also concern for pneumonia on XR. Nephrostomy internalized the perc to nephroureteral stent, however
developed leakage around catheter, so planed to reverse to usual nephrostomy position on 09/11/24. Patient and family initially agreeable for alternative means of feeding, however As per detailed discussion with GI, Oncology and family: with
significant worsening of functional status - patient will not be a candidate for aggressive treatment, most likely he is reaching terminal stage of his metastatic CA. In this case attempt for artificial feeding will be futile. No PEG planned. Family
and patient to discuss code, disposition and hospice internally and with hospice service.
Patient elected DNR overnight 09/12/24 and declining meds. Family discussing inpatient hospice/comfort care: explained in details bedside to that it will mean that we will not pursue any additional diagnostic tests, stop active medication with
exception of symptomatic mgmt of dyspnea, anxiety, constipation, dysuria. She verbalized understaging and agreeable to initiate inpatient hospice as per conversation with hospice admitting clerk. Patient underwent admission to inpatient hospice at [facility] [address]. He was placed on comfort care measures. Patient on 09/18/2024 at 16:52.
Discharge Plan
-
Patient Disposition:
Date/Time
Date/Time: 09/18/24 16:52
Discharge Date and Time
Discharge Date/Time: 09/18/24 16:52
Print Language: KHMER
== END 2024-09-18 16:52 | disposition expired | DRG 722 ==
LOC: 2 NORTH 14:55
PROVIDERS: ADMITTING PHYSICIAN Internal Medicine; ATTENDING PHYSICIAN Hospitalist
DX: C61 Malignant neoplasm of prostate (principal); J18.9 Pneumonia, unspecified organism; C78.7 Secondary malignant neoplasm of liver and intrahepatic bile duct; C79.51 Secondary malignant neoplasm of bone; E46 Unspecified protein-calorie malnutrition; N17.9 Acute kidney failure, unspecified; J44.0 Chronic obstructive pulmonary disease with (acute) lower respiratory infection; Z66 Do not resuscitate; E86.0 Dehydration; I95.9 Hypotension, unspecified; E87.5 Hyperkalemia; I25.10 Atherosclerotic heart disease of native coronary artery without angina pectoris; Z87.442 Personal history of urinary calculi; Z92.21 Personal history of antineoplastic chemotherapy; Z93.6 Other artificial openings of urinary tract status